=== PATIENT | male | born 1955 | race Caucasian/White ===

== ENCOUNTER → 2022-06-25 08:14 | Outpatient (BNVA) | payer BC, SELFPAY | PROVIDERS: PCP Family Medicine; Visit Provider Internal Medicine Endocrinology, Diabetes & Metabolism ==

== ENCOUNTER 2022-07-07 09:44 | Outpatient (REF) | payer BC, SELFPAY ==
[2022-07-07 11:52] LABS: Creatinine, 24Hr Urine 1.2 G/Day (1.0-2.0); Total Volume 24 Hour Urine 1800 mL
[2022-07-19 09:38] LABS: Cortisol Free, 24 Hr Urine 22.6 mcg/24 h (4.0-50.0); Creatinine, 24 Hr Urine 1.24 g/24 h (0.50-2.15); Total Volume, 24 Hr Urine 1800 mL
== END 2022-07-07 09:45 | disposition home or self-care (01) ==
LOC: HO.LNP 09:44
PROVIDERS: Visit Provider Internal Medicine Endocrinology, Diabetes & Metabolism
DX: D35.2 Benign neoplasm of pituitary gland (principal)
CPT/HCPCS: 82530; 82570

== ENCOUNTER 2022-08-13 07:47 | Outpatient (REF) | payer BC, SELFPAY ==
[2022-08-13 09:06] LABS: Anion Gap 13 (12-20); Blood Urea Nitrogen 16 mg/dL (9-16); Calcium 9.7 mg/dL (8.4-10.2); Carbon Dioxide 24 mmol/L (22-29); Chloride 106 mmol/L (96-108); Estimated Glomerular Filt Rate > 60; Glucose Random 98 mg/dL (60-115); Potassium 4.2 mmol/L (3.3-5.1); Sodium 139 mmol/L (135-145)
[2022-08-13 09:26] LABS: Free T4 (Free Thyroxine) 0.97 ng/dL (0.71-1.85); Thyroid Stimulating Hormone 1.03 uIU/mL (0.32-4.0)
[2022-08-15 02:53] LABS: Prolactin 6.1 ng/mL (2.0-18.0)
[2022-08-18 11:53] LABS: IGF-1 (Somatomedin C) 105 ng/mL (41-279); IGF-1 Z Score (Male) -0.2 SD (-2.0 - +2.0)
[2022-08-19 16:43] LABS: Testosterone, Free 57.1 pg/mL (35.0-155.0); Testosterone, Total 464 ng/dL (250-1100)
== END 2022-08-13 07:48 | disposition home or self-care (01) ==
LOC: HO.LAB 07:47
PROVIDERS: PCP Family Medicine; Visit Provider Internal Medicine Endocrinology, Diabetes & Metabolism
DX: D35.2 Benign neoplasm of pituitary gland (principal)
CPT/HCPCS: 36415; 80048; 82533; 84146; 84305; 84402; 84403; 84439; 84443

== ENCOUNTER 2022-08-17 08:17 | Outpatient (AMB) | payer BC, SELFPAY ==
--- NOTE | 2022-08-17 08:18 | A.OFFVIS_ITS ---
Intake Vital Signs 08/17/22 08:19 Height 5 ft 9.25 in Weight 172 lb 2.896 oz BMI 25.2 BP 120/78 Blood Pressure Location Lt brachial Position Sitting Pulse 56 Pulse Source Pulse Oximeter Pulse Oximetry (%) 97 Oxygen Delivery Method Room Air Intake Visit Reasons: f/u pituitary adenoma Intake Note: Pt presents to the office today for a follow-up pituitary adenoma. 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 Mass was 1st discovered in Feb 2022 . Patient denies any loss of vision. He states he had visual field test performed a week ago which are not available time of consultation. He denies any nipple discharge. He denies any change in the size of hands or feet or symptoms of acromegaly. He denies any symptoms of hypothyroidism or hyperthyroidism. He denies any symptoms of adrenal insufficiency or Kianna syndrome. He denies any polyuria or polydipsia. Visual mora so left eye and nasal defect which may not be due to pituitary adenoma. Some of the biochemical workup is pending but a.m. cortisol level is low normal [facility] Medical History (Updated 06/25/22 @ 08:17 by Milan Alvarez MD) Pituitary adenoma Surgical History (Updated 06/25/22 @ 07:12 by LYNDA Mac) Hx of colonoscopy Hx of knee surgery Family History (Updated 06/25/22 @ 08:01 by LYNDA Mac) Mother Diabetes mellitus, type II Father Carcinoma of prostate Social History (Updated 06/25/22 @ 08:00 by LYNDA Mac) Alcohol intake: current Alcohol intake frequency: a few times a week Patient Tobacco Use Status: Never used Tobacco Assessment & Plan Assessment & Plan (1) Pituitary adenoma: Code(s): D35.2 - Benign neoplasm of pituitary gland Plan: This 66-year-old male with a history of pituitary macroadenoma. Will rule out hypersecretion or hyposecretion of pituitary hormones. Plan is to IGF-1, 24 hour urine for free cortisol creatinine,, testosterone in a.m. fasting when is available. Will set up Cortrosyn stimulation test to test adrenal axis. Will try to obtain neuro surgical consultation with Dr. Tyson at [facility] ot Dr. Perkins at [facility] . Coding Level of Care Code Est Pt Level 3 (57911) Diagnoses Pituitary adenoma D35.2
[2022-08-17 08:19] VITALS: BP 120/78; PULSE 56; O2SAT 97; BMI 25.2
== END 2022-08-17 08:42 | disposition home or self-care (01) ==
PROVIDERS: PCP Family Medicine; Visit Provider Internal Medicine Endocrinology, Diabetes & Metabolism
DX: D35.2 Benign neoplasm of pituitary gland (principal)
CPT/HCPCS: 99213

== ENCOUNTER → 2022-08-17 08:17 | Outpatient (BNVA) | payer BC, SELFPAY | PROVIDERS: Visit Provider Internal Medicine Endocrinology, Diabetes & Metabolism ==

== ENCOUNTER 2022-08-24 07:16 | Outpatient (REF) | payer BC, SELFPAY ==
[2022-08-26 07:24] LABS: Cortisol 60 Minute 22.7 mcg/dL; Cortisol Baseline 10.8 mcg/dL
== END 2022-08-24 07:17 | disposition home or self-care (01) ==
LOC: HO.MDS 07:16
PROVIDERS: Visit Provider Internal Medicine Endocrinology, Diabetes & Metabolism
DX: D35.2 Benign neoplasm of pituitary gland (principal)
CPT/HCPCS: 36415; 82533; 96374; J0834

== ENCOUNTER 2022-12-08 08:07 | Outpatient (AMB) | payer BC, SELFPAY ==
--- NOTE | 2022-12-08 08:08 | A.OFFVIS_ITS ---
Intake Vital Signs 12/08/22 08:09 Height 5 ft 9.25 in Weight 171 lb 8.314 oz BMI 25.1 BP 114/86 Blood Pressure Location Lt brachial Position Sitting Pulse 64 Pulse Source Pulse Oximeter Intake Visit Reasons: f/u pituiary adenoma/Confirmed Intake Note: Patient present today for Pituitary adenoma follow up visit. Rn Clinical Appeals Required: No Accompanied by: Spouse Allergies No Known Allergies Allergy (Verified 12/08/22 08:20) Medication List - Last Reconciled 12/08/22 by Milan Alvarez MD allopurinol 300 mg PO DAILY apixaban (Eliquis) 5 mg PO BID atenolol 25 mg PO DAILY atorvastatin 40 mg PO DAILY carbidopa-levodopa 25-100 mg 2 tabs PO BID lisinopril 40 mg PO DAILY HPI HPI Comments History of Present Illness Details This 66-year-old male found to have pituitary macroadenoma which was 2.1 x 1.8 x 1.5 cm supracelular and sellar mass cystic and pushing on the optic chiasm. Mass was 1st discovered in Feb 2022 . Patient denies any loss of vision. He states he had visual field test performed a week ago which are not available time of consultation. He denies any nipple discharge. He denies any change in the size of hands or feet or symptoms of acromegaly. He denies any symptoms of hypothyroidism or hyperthyroidism. He denies any symptoms of adrenal insufficiency or [place] syndrome. He denies any polyuria or polydipsia. Visual mora so left eye and nasal defect which may not be due to pituitary adenoma. Some of the biochemical workup is pending but a.m. cortisol level is low normal. Cortrosyn stim test was normal. He also had normal visual mora by Oph thalmology. [facility] Medical History Pituitary adenoma Surgical History Hx of colonoscopy Hx of knee surgery Family History Mother Diabetes mellitus, type II Father Carcinoma of prostate Social History Alcohol intake: current Alcohol intake frequency: a few times a week Patient Tobacco Use Status: Never used Tobacco Physical Exam Vital Signs: Last Vital Signs Pulse 64 12/08/22 08:09 BP 114/86 12/08/22 08:09 BMI result Body Mass Index 25.1 Const Other: No signs of Kianna syndrome or acromegaly. Thyroid gland is normal size weighs about 15 g. Lungs are clear to auscultation. Heart is S1-S2. Abdominal exam is benign. There is no visual field loss by gross confrontation Assessment & Plan Assessment & Plan (1) Pituitary adenoma: Code(s): D35.2 - Benign neoplasm of pituitary gland Plan: This 66-year-old male with a history of pituitary macroadenoma. Appears to be non secretory. Plan is to to obtain neuro surgical consultation with Dr. Tyson at [facility] ot Dr. Perkins at [facility] . Will also repeat MRI the pituitary gland to be done a [facility] Orders: Orders MR head/brain wo/w con Today D35.2 - Benign neoplasm of pituitary gland Coding Level of Care Code Est Pt Level 3 (47945) Diagnoses Pituitary adenoma D35.2
[2022-12-08 08:09] VITALS: BP 114/86; PULSE 64; BMI 25.1
== END 2022-12-08 09:02 | disposition home or self-care (01) ==
PROVIDERS: PCP Family Medicine; Visit Provider Internal Medicine Endocrinology, Diabetes & Metabolism
DX: D35.2 Benign neoplasm of pituitary gland (principal)
CPT/HCPCS: 99213

== ENCOUNTER → 2022-12-08 08:07 | Outpatient (BNVA) | payer BC, SELFPAY | PROVIDERS: PCP Family Medicine; Visit Provider Internal Medicine Endocrinology, Diabetes & Metabolism ==

== ENCOUNTER 2023-05-11 15:22 | Outpatient (AMB) | payer BC, SELFPAY ==
--- NOTE | 2023-05-11 15:26 | MHC.OFFVIS ---
Intake Vital Signs 05/11/23 15:27 Height 5 ft 9.25 in Weight 181 lb 14.102 oz BMI 26.7 BP 144/86 H Blood Pressure Location Lt brachial Position Sitting Pulse 58 Pulse Source Pulse Oximeter Intake Visit Reasons: f/u pituiary adenoma Intake Note: Patient present today for Pituitary adenoma follow up visit. 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 Mass was 1st discovered in Feb 2022 . Patient denies any loss of vision. He states he had visual field test performed a week ago which are not available time of consultation. He denies any nipple discharge. He denies any change in the size of hands or feet or symptoms of acromegaly. He denies any symptoms of hypothyroidism or hyperthyroidism. He denies any symptoms of adrenal insufficiency or Kianna syndrome. He denies any polyuria or polydipsia. Visual mora so left eye and nasal defect which may not be due to pituitary adenoma. Some of the biochemical workup is pending but a.m. cortisol level is low normal. Cortrosyn stim test was normal. He also had normal visual mora by Ophthalmology. He is status post trans-sphenoidal resection of the pituitary mass 2 months ago at [facility]. Has f/u in 08/2023 [facility] Medical History (Updated 05/11/23 @ 15:32 by LYNDA Rivera) Pituitary adenoma (~03/2023) Surgical History History of pituitary surgery Hx of colonoscopy Hx of knee surgery Family History Mother Diabetes mellitus, type II Father Carcinoma of prostate Social History Alcohol intake: current Alcohol intake frequency: a few times a week Patient Tobacco Use Status: Never used Tobacco Physical Exam Vital Signs: Last Vital Signs Pulse 58 05/11/23 15:27 BP 144/86 H 05/11/23 15:27 BMI result Body Mass Index 26.7 Assessment & Plan Assessment & Plan (1) Pituitary adenoma: Onset Date: ~03/2023 Code(s): D35.2 - Benign neoplasm of pituitary gland Plan: 67-year-old white male with a history of pituitary macroadenoma status post transsphenoidal resection and [facility] on 03/13/2023 . Will try to obtain path report from [facility]. Will reassess pituitary axis checking basic metabolic panel, TSH, free T4, a.m. cortisol, testosterone Orders: Orders Basic Metabolic Panel Today D35.2 - Benign neoplasm of pituitary gland Free T4 (Free Thyroxine) Today D35.2 - Benign neoplasm of pituitary gland Thyroid Stimulating Hormone Today D35.2 - Benign neoplasm of pituitary gland Testosterone, Free/Total Today D35.2 - Benign neoplasm of pituitary gland Cortisol Random Today D35.2 - Benign neoplasm of pituitary gland Coding Level of Care Code Est Pt Level 3 (39113) Diagnoses Pituitary adenoma D35.2
[2023-05-11 15:27] VITALS: BP 144/86; PULSE 58; BMI 26.7
== END 2023-05-11 16:15 | disposition home or self-care (01) ==
PROVIDERS: PCP Family Medicine; Visit Provider Internal Medicine Endocrinology, Diabetes & Metabolism
DX: D35.2 Benign neoplasm of pituitary gland (principal)
CPT/HCPCS: 99213

== ENCOUNTER → 2023-05-11 15:22 | Outpatient (BNVA) | payer BC, SELFPAY | PROVIDERS: PCP Family Medicine; Visit Provider Internal Medicine Endocrinology, Diabetes & Metabolism ==

== ENCOUNTER 2023-12-05 10:19 | Outpatient (AMB) | payer BC, SELFPAY ==
--- NOTE | 2023-12-05 10:29 | A.OFFVIS_ITS ---
Vital Signs 3 12/05/23 10:30 Height 5 ft 9.25 in Weight 177 lb 0.499 oz BMI 26.0 BP 155/80 H Blood Pressure Location Lt brachial Position Sitting Pulse 42 L Pulse Source Pulse Oximeter Intake Visit Reasons: f/u pituitary adenoma-lvm Intake Note: Patient present today for pituitary adenoma follow up visit. 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 Kamila Arzate in March 2023 , luis hormonal staining on pathology now coming in today for follow up. HPI Patient was apparently having some hyperprolactinemia in February 2022. I do not have records this prolactin level that was elevated. Subsequently underwent MRI of the brain in April 2022 when he was found to have a pituitary macroadenoma measuring 2.1 cm in the maximum dimension. The mass was extending suprasellar, and pushing on the optic chiasm was also slightly pushing on the frontal lobe. Patient denies any loss of vision. Visual field testing performed at the [facility] in June 2022 showed a left atypical nieves defect with no bitemporal hemianopsia. On inital evaluation he denied He denies any nipple discharge. He denies any change in the size of hands or feet or symptoms of acromegaly. He denies any symptoms of hypothyroidism or hyperthyroidism. He denies any symptoms of adrenal insufficiency or Kianna syndrome. He denies any polyuria or polydipsia. Biochemical workup from August 2022 was unremarkable. He is status post trans-sphenoidal resection of the pituitary macroadenoma in March [address] Kamila Arzate at [facility]. 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 Stain negative before LH. Ki-67 index 0.1%. He subsequently had follow up in June 2023 and was asked to do repeat MRI 6 months which would be sometime in December 2023 with follow up with them after. Currentluy denies any lightheadness, dizziness , nausea or vomiting. No headaches. Overall feeling well. Bowel movements are regular. Weight is stable. Tremors are chronic mostky in right arm due to Parkinsons. On carbidopa 4 times a day . Follows with neurology. Is sexually active, no trouble with sexual function. No temperature intolerance. Had cardiac ablation for Afib this fall 2023, has followup with cards Most recent labs from May 2023 showed normal TSH of 1.3, free T4 1.09, total testosterone 567 ng/dL, free testosterone of 7.9 pg/mL, cortisol of 9.9 Physical exam General: sitting comfortably in no acute distress HEENT: normocephalic/atraumatic, gross visual mora intact, moist oral mucosa Neck: supple, symmetrical, no thyromegaly , no dorsocervical or supraclavicular fat pads Cardiac: normal heart sounds Pulm: normal breath sounds B/L, no added breath sounds Abd: not distended, no tenderness Extremities: no edema, no signs of myxedema PFSH Medical History Pituitary adenoma (~03/2023) Surgical History (Updated 12/05/23 @ 10:51 by Gisell Hwang MD) H/O cardiac radiofrequency ablation History of pituitary surgery Hx of colonoscopy Hx of knee surgery Family History Mother Diabetes mellitus, type II Father Carcinoma of prostate Social History Alcohol intake: current Alcohol intake frequency: a few times a week Patient Tobacco Use Status: Never used Tobacco Physical Exam Vital Signs: Last Vital Signs Pulse 42 L 12/05/23 10:30 BP 155/80 H 12/05/23 10:30 BMI result Body Mass Index 26.0 Results Reviewed Results Reviewed: Laboratory Tests 0508/13/22 08/24/22 07:00 07:58 08:00 Creatinine 0.85 Estimated GFR > 60 Calcium 9.7 TSH 1.03 Free T4 0.97 Prolactin 6.1 Total Testosterone 464 Fr Testosterone Dialys 57.1 Somatomedin-C 105 Somato-C Z-Score Male -0.2 Random Cortisol 9.3 Cortisol Baseline 10.8 Cortisol 60 Minute 22.7 Urine Total Volume 1800 Ur 24 Hour Volume 1800 Ur Creatinine mg/dL 68.40 Ur Creatinine 24 Hour 1.24 Ur Free Cortisol 24 Hr 22.6 Labs May 2023 MRI Dec 2022 MRI Dec 2022 Assessment & Plan Assessment & Plan (1) Pituitary adenoma: Onset Date: ~03/2023 Code(s): D35.2 - Benign neoplasm of pituitary gland Category: Medical Plan: 68-year-old male with a history of pituitary macroadenoma 2.1 cm, nonsecretory, abutting the optic chiasm, status post transsphenoidal resection at [facility] on 03/13/2023 . 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 Low Ki-67 index. He has done well postoperatively, labs done May 2023 showed normal thyroid hormone, cortisol and testosterone levels. Since it has been about 6 months since the last time he had blood work I will repeat blood work now.. He had a postoperative follow up head [facility] in June 2023, is due to get repeat MRI in December 2023 follow up with them after. When he had his visual mora done in June 2022, he had a left atypical nieves nasal defect thought to be not due to his pituitary adenoma with no bitemporal hemianopsia. I have asked him to make a follow up appointment with his eye doctor at [facility] to follow up on his visual mora. Plan: -ordered TSH, free T4, prolactin, testosterone levels, IGF-1, cortisol, acth -follow up with neurosurgery after repeat MRI in December 2023 -arrange follow up with [facility] -follow up in 6 months with me with lab work prior to appointment as well Plan I spent 30 minutes in reviewing the record, seeing the patient and documenting in the medical record. Orders: Orders 2 Free T4 (Free Thyroxine) Today D35.2 - Benign neoplasm of pituitary gland Cortisol Random Today D35.2 - Benign neoplasm of pituitary gland Basic Metabolic Panel Today D35.2 - Benign neoplasm of pituitary gland Thyroid Stimulating Hormone Today D35.2 - Benign neoplasm of pituitary gland Adrenocorticotropic Hormone Today D35.2 - Benign neoplasm of pituitary gland Lutenizing Hormone Today D35.2 - Benign neoplasm of pituitary gland IGF-1 (Somatomedin C) Today D35.2 - Benign neoplasm of pituitary gland Prolactin Today D35.2 - Benign neoplasm of pituitary gland Testosterone, Free/Total Today D35.2 - Benign neoplasm of pituitary gland Sex Hormone Binding Globulin Today D35.2 - Benign neoplasm of pituitary gland Patient Instructions: Do early childhood coordinator fasting AM bloodwork Follow up with Dr. Arzate with repeat MRI Follow up with eye doctor at [facility] for visual mora I will see you back in 6 months with repeat labs 1 week prior Coding Level of Care Code Est Pt Level 4 (36075) Diagnoses Pituitary adenoma D35.2 Time Spent (min) 30
[2023-12-05 10:30] VITALS: BP 155/80; PULSE 42; BMI 26.0
== END 2023-12-05 11:14 | disposition home or self-care (01) ==
PROVIDERS: PCP Family Medicine; Visit Provider Student in an Organized Health Care Education/Training Program
DX: D35.2 Benign neoplasm of pituitary gland (principal)
CPT/HCPCS: 99214

== ENCOUNTER → 2023-12-05 10:19 | Outpatient (BNVA) | payer BC, SELFPAY | PROVIDERS: PCP Family Medicine; Visit Provider Student in an Organized Health Care Education/Training Program ==

== ENCOUNTER 2023-12-07 09:44 | Outpatient (REF) | payer BC, SELFPAY ==
[2023-12-07 12:20] LABS: Anion Gap 13 (12-20); Blood Urea Nitrogen 13 mg/dL (9-16); Calcium 9.5 mg/dL (8.4-10.2); Carbon Dioxide 25 mmol/L (22-29); Chloride 106 mmol/L (96-108); Estimated Glomerular Filt Rate > 60; Potassium 3.3 mmol/L (3.3-5.1); Sodium 141 mmol/L (135-145)
[2023-12-07 12:32] LABS: Glucose Random 54 mg/dL (60-115)
[2023-12-07 12:34] LABS: Cortisol Random 7.5 ug/dL
[2023-12-07 13:01] LABS: Free T4 (Free Thyroxine) 0.94 ng/dL (0.71-1.85); Thyroid Stimulating Hormone 1.15 uIU/mL (0.32-4.0)
[2023-12-08 17:49] LABS: Lutenizing Hormone 2.7 mIU/mL (1.6-15.2); Prolactin 5.2 ng/mL (2.0-18.0); Sex Hormone Binding Globulin 48 nmol/L (22-77)
[2023-12-12 22:18] LABS: Testosterone, Free 35.2 pg/mL (35.0-155.0); Testosterone, Total 342 ng/dL (250-1100)
[2023-12-13 13:48] LABS: IGF-1 (Somatomedin C) 89 ng/mL (41-279); IGF-1 Z Score (Male) -0.4 SD (-2.0 - +2.0)
== END 2023-12-07 09:45 | disposition home or self-care (01) ==
LOC: HO.LAB 09:44
PROVIDERS: Internal Medicine Endocrinology, Diabetes & Metabolism; PCP Family Medicine; Visit Provider Student in an Organized Health Care Education/Training Program
DX: D35.2 Benign neoplasm of pituitary gland (principal)
CPT/HCPCS: 36415; 80048; 82533; 83002; 84146; 84270; 84305; 84402; 84403; 84439; 84443

== ENCOUNTER 2023-12-09 09:25 | Outpatient (REF) | payer BC, SELFPAY ==
[2023-12-09 11:54] LABS: Cortisol Random 4.9 ug/dL
[2023-12-09 12:11] LABS: Anion Gap 12 (12-20); Blood Urea Nitrogen 16 mg/dL (9-16); Calcium 9.7 mg/dL (8.4-10.2); Carbon Dioxide 27 mmol/L (22-29); Chloride 106 mmol/L (96-108); Estimated Glomerular Filt Rate > 60; Glucose Random 83 mg/dL (60-115); Potassium 4.1 mmol/L (3.3-5.1); Sodium 141 mmol/L (135-145)
[2023-12-15 16:18] LABS: Testosterone, Free 66.6 pg/mL (35.0-155.0); Testosterone, Total 438 ng/dL (250-1100)
[2023-12-15 21:48] LABS: Adrenocorticotropic Hormone 9 pg/mL (6-50)
== END 2023-12-09 09:26 | disposition home or self-care (01) ==
LOC: HO.LAB 09:25
PROVIDERS: Student in an Organized Health Care Education/Training Program; PCP Family Medicine; Visit Provider Student in an Organized Health Care Education/Training Program
DX: D35.2 Benign neoplasm of pituitary gland (principal)
CPT/HCPCS: 36415; 80048; 82024; 82533; 84402; 84403; 84439; 84443

== ENCOUNTER 2024-01-03 10:11 | Outpatient (AMB) | payer BC, SELFPAY ==
--- NOTE | 2024-01-03 10:14 | MHC.OFFVIS ---
Vital Signs 01/03/24 10:16 Height 5 ft 9.25 in Weight 177 lb 14.609 oz BMI 26.1 BP 128/72 Blood Pressure Location Lt brachial Position Sitting Pulse 58 Pulse Source Pulse Oximeter Intake Visit Reasons: Discuss cortisol treatment plan-confirmed Intake Note: Patient present today to discuss cortisol treatment plan. 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 Kamila Arzate in March 2023 , pleuri hormonal staining on pathology now coming in today for follow up. HPI Patient was apparently having some hyperprolactinemia in February 2022. I do not have records this prolactin level that was elevated. Subsequently underwent MRI of the brain in April 2022 when he was found to have a pituitary macroadenoma measuring 2.1 cm in the maximum dimension. The mass was extending suprasellar, and pushing on the optic chiasm was also slightly pushing on the frontal lobe. Patient denies any loss of vision. 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 On inital evaluation he denied He denies any nipple discharge. He denies any change in the size of hands or feet or symptoms of acromegaly. He denies any symptoms of hypothyroidism or hyperthyroidism. He denies any symptoms of adrenal insufficiency or Kianna syndrome. He denies any polyuria or polydipsia. Biochemical workup from August 2022 was unremarkable. He is status post trans-sphenoidal resection of the pituitary macroadenoma in March [address] Kamila Arzate at [facility]. 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 Stain negative before LH. Ki-67 index 0.1%. He subsequently had follow up in June 2023 and was asked to do repeat MRI 6 months which would be sometime in December 2023 with follow up with them after. Currentluy denies any lightheadness, dizziness , nausea or vomiting. No headaches. Overall feeling well. Bowel movements are regular. Weight is stable. Tremors are chronic mostky in right arm due to Parkinsons. On carbidopa 4 times a day . Follows with neurology. Is sexually active, no trouble with sexual function. No temperature intolerance. Had cardiac ablation for Afib this fall 2023, has followup with cards labs from May 2023 showed normal TSH of 1.3, free T4 1.09, total testosterone 567 ng/dL, free testosterone of 7.9 pg/mL, cortisol of 9.9 Interval history Has not had neurosurgery follow up yet still to schedule his MRI due 12/2023. Eye: hasnt seen visual field evaluation at [facility] yet, yet to make an appointment Labs done 12/07/2023, showed critically low glucose of 54, his random cortisol level at that time at 10:00 was 7.5. He did not have any symptoms, asked him to repeat his labs which on 12/09/2023 showed blood glucose of 83, random cortisol of 4.9 with a ACTH of 9. Otherwise labs unremarkable for the rest of the pituitary panel. He denies any dizziness, lightheadedness, nausea, vomiting today. Blood pressure is within normal range. Weight has been stable. Physical exam General: sitting comfortably in no acute distress HEENT: normocephalic/atraumatic, gross visual mora intact, moist oral mucosa Neck: supple, symmetrical, no thyromegaly , no dorsocervical or supraclavicular fat pads Cardiac: normal heart sounds Pulm: normal breath sounds B/L, no added breath sounds Abd: not distended, no tenderness Extremities: no edema, no signs of myxedema Laboratory Tests 07/07/22 08/13/22 08/24/22 07:00 07:58 08:00 Creatinine 0.85 Estimated GFR > 60 Calcium 9.7 TSH 1.03 Free T4 0.97 Prolactin 6.1 Total Testosterone 464 Fr Testosterone Dialys 57.1 Somatomedin-C 105 Somato-C Z-Score Male -0.2 Random Cortisol 9.3 Cortisol Baseline 10.8 Cortisol 60 Minute 22.7 Urine Total Volume 1800 Ur 24 Hour Volume 1800 Ur Creatinine mg/dL 68.40 Ur Creatinine 24 Hour 1.24 Ur Free Cortisol 24 Hr 22.6 Laboratory Tests 12/07/23 12/09/23 10:09 10:06 Sodium 141 141 Potassium 3.3 4.1 D Creatinine 0.77 0.80 Random Glucose 54 L* 83 TSH 1.15 1.40 Free T4 0.94 0.80 Luteinizing Hormone 2.7 Prolactin 5.2 Total Testosterone 342 438 Fr Testosterone Dialys 35.2 66.6 Sex Hormone Bind Glob 48 Somatomedin-C 89 Somato-C Z-Score Male -0.4 Random Cortisol 7.5 4.9 ACTH 9 PFSH Medical History Pituitary adenoma (~03/2023) Surgical History H/O cardiac radiofrequency ablation History of pituitary surgery Hx of colonoscopy Hx of knee surgery Family History Mother Diabetes mellitus, type II Father Carcinoma of prostate Social History Alcohol intake: current Alcohol intake frequency: a few times a week Patient Tobacco Use Status: Never used Tobacco Physical Exam Vital Signs: Last Vital Signs Pulse 58 01/03/24 10:16 BP 128/72 01/03/24 10:16 BMI result Body Mass Index 26.1 Assessment & Plan Assessment & Plan (1) Pituitary adenoma: Onset Date: ~03/2023 Code(s): D35.2 - Benign neoplasm of pituitary gland Category: Medical Plan: 68-year-old male with a history of pituitary macroadenoma 2.1 cm, nonsecretory, abutting the optic chiasm, status post transsphenoidal resection at [facility] on 03/13/2023 . 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 Low Ki-67 index. He has done well postoperatively, labs done May 2023 showed normal thyroid hormone, cortisol and testosterone levels. He had a postoperative follow [place] [facility] [place], is due to get repeat MRI in December 2023 follow up with them after. When he had his visual mora done in June 2022, he had a left atypical nieves nasal defect thought to be not due to his pituitary adenoma with no bitemporal hemianopsia. I have asked him to make a follow up appointment with his eye doctor at [facility] to follow up on his visual mora. Labs done 12/07/2023, showed critically low glucose of 54, his random cortisol level at that time at 10:00 was 7.5. He did not have any symptoms, asked him to repeat his labs which on 12/09/2023 showed blood glucose of 83, random cortisol of 4.9 with a ACTH of 9. Otherwise labs unremarkable for the rest of the pituitary panel. He denies any dizziness, lightheadedness, nausea, vomiting today. Blood pressure is within normal range. Weight has been stable. His cortisol and ACTH being on the lower side are concerning for possible secondary adrenal insufficiency, however given his clinical picture at this point I have not prescribed steroids. I did educate him about cortisol deficiency enroll of ACTH in adrenal insufficiency and if he starts having any symptoms of dizziness, lightheadedness, nausea, vomiting, exhaustion to go to the emergency room/call our office during of [place]. I also provided these instructions to him in writing. I will have him repeat labs at 08:00, these are already ordered. I will also arrange for a cosyntropin stimulation test. Plan: -ordered TSH, free T4, prolactin, , IGF-1, cortisol, acth, DHEA-S to be done at 08:00 -scheduling cosyntropin stimulation test -counseled regarding symptoms of adrenal insufficiency -follow up with neurosurgery after repeat MRI in December 2023 -arrange follow up with [facility] -follow up in 6 weeks with me with lab work prior to appointment as well Plan I spent 30 minutes in reviewing the record, seeing the patient and documenting in the medical record. Orders: Orders Adrenocorticotropic Hormone Today D35.2 - Benign neoplasm of pituitary gland Basic Metabolic Panel Today D35.2 - Benign neoplasm of pituitary gland DHEA Sulfate Today D35.2 - Benign neoplasm of pituitary gland Free T4 (Free Thyroxine) Today D35.2 - Benign neoplasm of pituitary gland Prolactin Today D35.2 - Benign neoplasm of pituitary gland Thyroid Stimulating Hormone Today D35.2 - Benign neoplasm of pituitary gland Alpha Subunit Today D35.2 - Benign neoplasm of pituitary gland Follicle Stimulating Hormone Today D35.2 - Benign neoplasm of pituitary gland IGF-1 (Somatomedin C) Today D35.2 - Benign neoplasm of pituitary gland Aldosterone Today D35.2 - Benign neoplasm of pituitary gland Renin Today D35.2 - Benign neoplasm of pituitary gland Cortisol Random Today D35.2 - Benign neoplasm of pituitary gland Lutenizing Hormone Today D35.2 - Benign neoplasm of pituitary gland Referrals Infusion Center Notification D35.2 - Benign neoplasm of pituitary gland Patient Instructions: Do blood work at 8 AM We will arrange for a cosyntropin stimulation test , our infusion center or nurse will call you to guide about scheduling this See Dr. Arzate after you have MRI See visual field doctor If you start having nausea, vomiting, belly pain, lightheadedness, dizziness , feeling exhausted please call our office during office hours or go to emergency room if you cant get a hold of us or if its after office hours or weekends s/p pituitary surgery , getting evaluated for adrenal insufficiency, if presents with adrenal crisis or passes out will need steroids Coding Level of Care Code Est Pt Level 4 (54501) Diagnoses Pituitary adenoma D35.2 Time Spent (min) 30
[2024-01-03 10:16] VITALS: BP 128/72; PULSE 58; BMI 26.1
== END 2024-01-03 10:48 | disposition home or self-care (01) ==
PROVIDERS: PCP Family Medicine; Visit Provider Student in an Organized Health Care Education/Training Program
DX: D35.2 Benign neoplasm of pituitary gland (principal)
CPT/HCPCS: 99214

== ENCOUNTER 2024-01-04 07:31 | Outpatient (REF) | payer BC, SELFPAY ==
[2024-01-04 08:07] LABS: Anion Gap 13 (12-20); Blood Urea Nitrogen 19 mg/dL (9-16); Calcium 9.4 mg/dL (8.4-10.2); Carbon Dioxide 25 mmol/L (22-29); Chloride 108 mmol/L (96-108); Estimated Glomerular Filt Rate > 60; Glucose Random 91 mg/dL (60-115); Potassium 4.3 mmol/L (3.3-5.1); Sodium 142 mmol/L (135-145)
[2024-01-04 08:23] LABS: Free T4 (Free Thyroxine) 0.86 ng/dL (0.71-1.85); Thyroid Stimulating Hormone 1.27 uIU/mL (0.32-4.0)
[2024-01-04 08:29] LABS: Cortisol Random 8.7 ug/dL
[2024-01-05 06:28] LABS: DHEA Sulfate 72 mcg/dL (20-217)
[2024-01-05 07:09] LABS: Follicle Stimulating Hormone 4.2 mIU/mL (1.4-12.8); Prolactin 4.1 ng/mL (2.0-18.0)
[2024-01-09 17:03] LABS: IGF-1 (Somatomedin C) 48 ng/mL (41-279); IGF-1 Z Score (Male) -1.6 SD (-2.0 - +2.0)
[2024-01-11 08:54] LABS: Adrenocorticotropic Hormone 11 pg/mL (6-50)
[2024-01-14 10:14] LABS: Renin 1.77 ng/mL/h (0.25-5.82)
== END 2024-01-04 07:32 | disposition home or self-care (01) ==
LOC: HO.LAB 07:31
PROVIDERS: PCP Family Medicine; Visit Provider Student in an Organized Health Care Education/Training Program
DX: D35.2 Benign neoplasm of pituitary gland (principal)
CPT/HCPCS: 36415; 80048; 82024; 82088; 82533; 82627; 83001; 83002; 83519; 84146; 84244; 84305; 84439; 84443

== ENCOUNTER 2024-01-20 07:30 | Outpatient (RCR) | payer BC, SELFPAY ==
[2024-01-20 07:37] VITALS: BP 127/78; PULSE 53; RESP 16; TEMP 36.4; O2SAT 99
[2024-01-20] MEDS: Cosyntropin 0.25 MG VIAL IVPUSH (07:45)
[2024-01-22 22:23] LABS: Cortisol 30 Minute 25.7 mcg/dL; Cortisol 60 Minute 28.5 mcg/dL; Cortisol Baseline 7.1 mcg/dL
== END 2024-01-20 11:05 | disposition home or self-care (01) ==
LOC: HO.INF 07:30
PROVIDERS: Visit Provider Student in an Organized Health Care Education/Training Program
DX: D35.2 Benign neoplasm of pituitary gland (principal)
CPT/HCPCS: 36415; 82533; 96374; J0834

== ENCOUNTER 2024-02-14 10:53 | Outpatient (AMB) | payer BC, SELFPAY ==
[2024-02-14 11:01] VITALS: BP 136/80; PULSE 56; BMI 26.5
--- NOTE | 2024-02-14 11:01 | A.OFFVIS_ITS ---
Vital Signs 3 02/14/24 11:01 Height 5 ft 9.25 in Weight 180 lb 12.465 oz BMI 26.5 BP 136/80 Blood Pressure Location Lt brachial Position Sitting Pulse 56 Pulse Source Pulse Oximeter Intake Visit Reasons: pituitary adenoma Intake Note: Patient present today for pituitary adenoma office visit. 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 Kamila Arzate in March 2023 , pleuri hormonal staining on pathology now coming in today for follow up. HPI Patient was apparently having some hyperprolactinemia in February 2022. I do not have records this prolactin level that was elevated. Subsequently underwent MRI of the brain in April 2022 when he was found to have a pituitary macroadenoma measuring 2.1 cm in the maximum dimension. The mass was extending suprasellar, and pushing on the optic chiasm was also slightly pushing on the frontal lobe. Patient denies any loss of vision. Visual field testing performed at the [facility] in June 2022 showed a left atypical nieves defect with no bitemporal hemianopsia. On inital evaluation he denied He denies any nipple discharge. He denies any change in the size of hands or feet or symptoms of acromegaly. He denies any symptoms of hypothyroidism or hyperthyroidism. He denies any symptoms of adrenal insufficiency or Kianna syndrome. He denies any polyuria or polydipsia. Biochemical workup from August 2022 was unremarkable. He is status post trans-sphenoidal resection of the pituitary macroadenoma in March [address] Kamila Arzate at [facility]. 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 Stain negative before LH. Ki-67 index 0.1%. He subsequently had follow up in June 2023 and was asked to do repeat MRI 6 months which would be sometime in December 2023 with follow up with them after. Currentluy denies any lightheadness, dizziness , nausea or vomiting. No headaches. Overall feeling well. Bowel movements are regular. Weight is stable. Tremors are chronic mostky in right arm due to Parkinsons. On carbidopa 4 times a day . Follows with neurology. Is sexually active, no trouble with sexual function. No temperature intolerance. Had cardiac ablation for Afib this fall 2023, has followup with cards labs from May 2023 showed normal TSH of 1.3, free T4 1.09, total testosterone 567 ng/dL, free testosterone of 7.9 pg/mL, cortisol of 9.9 Eye: hasnt seen visual field evaluation at [facility] yet, yet to make an appointment Labs done 12/07/2023, showed critically low glucose of 54, his random cortisol level at that time at 10:00 was 7.5. He did not have any symptoms, asked him to repeat his labs which on 12/09/2023 showed blood glucose of 83, random cortisol of 4.9 with a ACTH of 9. Otherwise labs unremarkable for the rest of the pituitary panel. Interval history Labs 12/09/2023 showed random cortisol of 4.9, with a ACTH of 9. Labs 01/04/2024 showed normal electrolytes, kidney function, renin greater than 1, normal pituitary panel with normal thyroid function, DHEA-S of 72, random cortisol of 8.7 and ACTH of 11 at 07:00. Cosyntropin stimulation testing 01/20/2024 showed baseline cortisol of 7.1, 30 minute cortisol of 25.7 and 60 minute cortisol 28.5. Has not had neurosurgery follow up yet still to schedule Eye appointment in Mar 2024 He denies any dizziness, lightheadedness, nausea, vomiting today. Blood pressure is within normal range. Weight has been stable. Physical exam General: sitting comfortably in no acute distress HEENT: normocephalic/atraumatic, gross visual mora intact, moist oral mucosa Neck: supple, symmetrical, no thyromegaly , no dorsocervical or supraclavicular fat pads Cardiac: normal heart sounds Pulm: normal breath sounds B/L, no added breath sounds Abd: not distended, no tenderness Extremities: no edema, no signs of myxedema Laboratory Tests 07/07/22 08/13/22 08/24/22 07:00 07:58 08:00 Creatinine 0.85 Estimated GFR > 60 Calcium 9.7 TSH 1.03 Free T4 0.97 Prolactin 6.1 Total Testosterone 464 Fr Testosterone Dialys 57.1 Somatomedin-C 105 Somato-C Z-Score Male -0.2 Random Cortisol 9.3 Cortisol Baseline 10.8 Cortisol 60 Minute 22.7 Urine Total Volume 1800 Ur 24 Hour Volume 1800 Ur Creatinine mg/dL 68.40 Ur Creatinine 24 Hour 1.24 Ur Free Cortisol 24 Hr 22.6 Laboratory Tests 12/07/23 12/09/23 10:09 10:06 Sodium 141 141 Potassium 3.3 4.1 D Creatinine 0.77 0.80 Random Glucose 54 L* 83 TSH 1.15 1.40 Free T4 0.94 0.80 Luteinizing Hormone 2.7 Prolactin 5.2 Total Testosterone 342 438 Fr Testosterone Dialys 35.2 66.6 Sex Hormone Bind Glob 48 Somatomedin-C 89 Somato-C Z-Score Male -0.4 Random Cortisol 7.5 4.9 ACTH 9 Laboratory Tests 12/09/23 01/04/24 01/20/24 10:06 07:43 07:44 Sodium 142 Potassium 4.3 Creatinine 0.83 Estimated GFR > 60 Random Glucose 91 Alpha Subunit Marker <0.1 Renin 1.77 Aldosterone 2 TSH 1.27 Free T4 0.86 FSH 4.2 Luteinizing Hormone 2.0 Prolactin 4.1 DHEA Sulfate 72 Somatomedin-C 48 Somato-C Z-Score Male -1.6 Random Cortisol 4.9 8.7 Cortisol Baseline 7.1 Cortisol 30 Minute 25.7 Cortisol 60 Minute 28.5 ACTH 9 11 [facility] Medical History Pituitary adenoma (~03/2023) Surgical History H/O cardiac radiofrequency ablation History of pituitary surgery Hx of colonoscopy Hx of knee surgery Family History Mother Diabetes mellitus, type II Father Carcinoma of prostate Social History Alcohol intake: current Alcohol intake frequency: a few times a week Patient Tobacco Use Status: Never used Tobacco Physical Exam Vital Signs: Last Vital Signs Pulse 56 02/14/24 11:01 BP 136/80 02/14/24 11:01 BMI result Body Mass Index 26.5 Assessment & Plan Assessment & Plan (1) Pituitary adenoma: Onset Date: ~03/2023 Code(s): D35.2 - Benign neoplasm of pituitary gland Category: Medical Plan: 68-year-old male with a history of pituitary macroadenoma 2.1 cm, nonsecretory, abutting the optic chiasm, status post transsphenoidal resection at [facility] on 03/13/2023 . 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 Low Ki-67 index. He has done well postoperatively, labs done May 2023 showed normal thyroid hormone, cortisol and testosterone levels. He had a postoperative follow up [place] [facility] [place], is due to get repeat MRI in December 2023 follow up with them after. He still has to make this appointment. When he had his visual mora done in June 2022, he had a left atypical nieves nasal defect thought to be not due to his pituitary adenoma with no bitemporal hemianopsia. He has follow up appointment with his eye doctor at [facility] to follow up on his visual mora in Mar 2024. Labs done 12/07/2023, showed critically low glucose of 54, his random cortisol level at that time at 10:00 was 7.5. He did not have any symptoms, asked him to repeat his labs which on 12/09/2023 showed blood glucose of 83, random cortisol of 4.9 with a ACTH of 9. Labs 12/09/2023 showed random cortisol of 4.9, with a ACTH of 9. Labs 01/04/2024 showed normal electrolytes, kidney function, renin greater than 1, normal pituitary panel with normal thyroid function, DHEA-S of 72, random cortisol of 8.7 and ACTH of 11 at 07:00. Cosyntropin stimulation testing 01/20/2024 showed baseline cortisol of 7.1, 30 minute cortisol of 25.7 and 60 minute cortisol 28.5. He denies any dizziness, lightheadedness, nausea, vomiting today. Blood pressure is within normal range. Weight has been stable. I did again bereavement counselor him today about cortisol deficiency and roll of ACTH in adrenal insufficiency and if he starts having any symptoms of dizziness, lightheadedness, nausea, vomiting, exhaustion to go to the emergency room/call our office . Otherwise we would plan to repeat labs in 6 months. At this point given normal cosyntropin testing, no concerns for adrenal insufficiency. Plan: -ordered pituitary panel to be done in 6 months -follow up in 6 months -counseled regarding symptoms of adrenal insufficiency -follow up with neurosurgery after repeat MRI - follow up with [facility] Plan see above Orders: Orders 2 Prolactin 6 Months D35.2 - Benign neoplasm of pituitary gland Basic Metabolic Panel 6 Months D35.2 - Benign neoplasm of pituitary gland IGF-1 (Somatomedin C) 6 Months D35.2 - Benign neoplasm of pituitary gland Lutenizing Hormone 6 Months D35.2 - Benign neoplasm of pituitary gland Free T4 (Free Thyroxine) 6 Months D35.2 - Benign neoplasm of pituitary gland Testosterone, Free/Total 6 Months D35.2 - Benign neoplasm of pituitary gland Adrenocorticotropic Hormone 6 Months D35.2 - Benign neoplasm of pituitary gland Cortisol Random 6 Months D35.2 - Benign neoplasm of pituitary gland Follicle Stimulating Hormone 6 Months D35.2 - Benign neoplasm of pituitary gland Thyroid Stimulating Hormone 6 Months D35.2 - Benign neoplasm of pituitary gland DHEA Sulfate 6 Months D35.2 - Benign neoplasm of pituitary gland Patient Instructions: Please do blood work early 8 AM fasting a week prior to your next appointment with me in 6 months Coding Level of Care Code Est Pt Level 3 (87910) Diagnoses Pituitary adenoma D35.2
--- OUTSIDE RECORDS SUMMARY | 2024-02-14 12:12 | XMS_ITS | Data Portability ---
Author Organization [facility], Main Office Address [address] [place] [address] Care Team Providers Care Manager Product Design Name Role Phone MICHEAL RICHARDS Primary Care Provider REE HENSLEY Orthopedic Surgeon [phone] MAX VALDES Woodworker SUMANTH ESCOBAR Neurologist [facility] Jordan Man [phone] ISAI BONILLA Marketing Intelligence Analyst [phone] Assessment No assessment recorded. Plan of Treatment Reminders Order Date Submit Date Provider Last Modified By Organization Details Last Modified Time Details Appointments PE EST 2024 01:00P M Micheal Richards MD Not available Not available Not available Lab uric acid, serum or plasma 2023 024 [facility], [address], [place], [address], 08/18/2023 08:09:08 CBC w/ auto diff 2023 024 [facility], [address], [address], [place], [address], 08/18/2023 08:09:06 CMP, serum or plasma 2023 024 [facility]ILCAR [facility], [address], [address], [place], [address], 08/18/2023 08:09:04 PSA, serum or plasma - Screen ing 2023 024 [facility]ILCAR [facility], [address], [address], [place], [address], 08/18/2023 08:09:08 magnes ium, serum or plasma 2023 024 [facility]IL[facility], [address], [address], [place], [address], 08/18/2023 08:09:09 lipid panel, serum 2023 024 [email or web address], [address], [address], [place], [address], 07/18/2023 09:00:36 Referral physic al therap ist referr al - Neurol percy [facility] 2022 023 [email or web address] Not available 05/30/2023 09:04:38 physic al therap ist referr al - Edyta Tabares 2023 024 [email or web address] [facility], [address] [place] [address], [address], [place], [address], 01/04/2024 09:37:07 physic al therap ist referr al - At risk for fallin g 2023 024 link Not available 07/08/2023 10:52:24 sleep medici ne referr al - stop bang 4 with afib. 2023 024 [facility], [address] [place], [address], 08/18/2023 11:00:57 Procedures None record ed. Surgeries None record ed. Imaging US, abdome n + pelvis 2023 024 link [facility], [address] [facility] [place], [address], 10/14/2023 11:42:21 Medication Orders None record ed. Patient TargetsNo targets recorded. Patient Instructions Encounter Date Encounter Id Patient Instructions Last Modified By Organization Details Last Modified Time 03/18/2023 [id number] During [facility] f/u call, all current and discharge medications (OTC, herbal therapies, supplements) reviewed and reconciled with patient, including potential side effects, drug interactions, instructions, and the consequences of not taking medication. Reviewed potential barriers to medication adherence, such as side effects from medication or cost of medication. sanaz Not available 03/18/2023 10:11:13 07/08/2023 [id number] Prostate Cancer Screening frank Not available 07/08/2023 10:00:10 well visit, over 65: care instructions frank Not available 07/08/2023 10:00:10 preventing falls : care instructions frank Not available 07/08/2023 10:00:11 well visit, over 65: care instructions frank Not available 07/08/2023 10:00:10 medical record request* [email or web address] Not available 07/18/2023 08:59:16 01/13/2024 [id number] parkinson's dise ase: care instructions frank Not available 01/13/2024 09:49:13 electrical cardioversion: before your procedure frank Not available 01/13/2024 09:49:13 Electrophysiolog y (EP) Study: Before Your Procedure frank Not available 01/13/2024 09:49:13 high blood press ure: care instructions frank Not available 01/13/2024 09:49:13 learning about h igh blood pressure frank Not available 01/13/2024 09:49:13 Reason for Referral Physical Therapist Referral for Parkinson's disease [facility] [phone] Referring Physician: Family Brenda Medicine, Encounter Date: 11/30/2022 Sleep Medicine Referral for Snoring stop bang 4 with afib. Referring Physician: Family Peng Gutierrez, Encounter Date: 07/08/2023 Physical Therapist Referral for Adult health examination At risk for falling Referring Physician: Family Peng Gutierrez, Encounter Date: 07/08/2023 Physical Therapist Referral for Parkinson's disease Karolina Rayshawn Referring Physician: Family Peng Gutierrez, Encounter Date: 07/08/2023 Results Created Date Observation Date Name Description Value Unit Range Abnormal Flag Note LastModifiedBy Organization Detail LastModifiedTime 09/01/19 23 08/31/2022 CA19- 9 Ca19-9 7 U/mL (0-35) Ivory Elect ivory milum inesc ence Immun oassa y (ECLI A). Value s obtai jerri with diffe rent assay metho ds or kits canno t be used inter dee kenny . Resul ts canno t be inter prete d as absol [place] evide nce of the prese nce or absen ce of [facility] . Not Available [facility] [address] [place], [address], 08/31/2022 17:51:44 09/01/19 23 08/31/2022 CEA MONOC LONAL cea monoclonal 1.7 NG/mL (0-3.8 ) In smoke rs the CEA refer ence range upper limit may be as high as 5.5 ng/mL Testi ng perfo rmed using the Ivory Elect ivory milum inesc ence CEA assay . Value s obtai jerri with other assay metho ds or kits canno t be used inter dee eably . Varia ble resul ts may occur in patie nts who have diagn ostic tests /ther apy using mouse monoc lonal antib odies . [place] Lab at EXT [id number] . Not Available [facility] [address], [place], [address], 08/31/2022 17:51:46 09/01/19 23 09/01/2022 SERUM ELECT ROPHO RESIS total protein 6.4 gm/dL (6.2-8 .2) Not Available [facility] [address], [place], [address], 09/09/2022 10:56:27 09/01/19 23 09/09/2022 SERUM ELECT ROPHO RESIS albumin 3.7 gm/dL (3.1-4 .8) Not Available [facility] [address] [place], [address], 09/09/2022 10:56:27 09/01/19 23 09/09/2022 SERUM ELECT ROPHO RESIS alpha 1 0.2 gm/dL (0.2-0 .4) Not Available [facility] [address] [place], [address], 09/09/2022 10:56:27 09/01/19 23 09/09/2022 SERUM ELECT ROPHO RESIS alpha 2 0.8 gm/dL (0.6-0 .9) Not Available [facility] [address] [place], [address], 09/09/2022 10:56:27 09/01/1909/09/2022 SERUM ELECT ROPHO RESIS beta 1.0 gm/dL (0.9-1 .3) Not Available [facility] [address] [place], [address], 09/09/2022 10:56:27 09/01/19 23 09/09/2022 SERUM ELECT ROPHO RESIS gamma 0.7 gm/dL (0.6-1 .8) Not Available [facility] [address] [place], [address], 09/09/2022 10:56:27 09/01/19 23 09/09/2022 SERUM ELECT ROPHO RESIS beta, restricted band Not Applic able Not Available [facility] [address] [place], [address], 09/09/2022 10:56:27 09/01/19 23 09/09/2022 SERUM ELECT ROPHO RESIS beta, second restricted band Not Applic able gm/dL Not Available [facility] [address] [place], [address], 09/09/2022 10:56:27 09/01/19 23 09/09/2022 SERUM ELECT ROPHO RESIS gamma, restricted band Not Applic able gm/dL Not Available [facility] [address] [place], [address], 09/09/2022 10:56:27 09/01/19 23 09/09/2022 SERUM ELECT ROPHO RESIS gamma, second restricted band Not Applic able gm/dL Not Available [facility] [address] [place], [address], 09/09/2022 10:56:27 09/01/19 23 09/09/2022 SERUM ELECT ROPHO RESIS spe interpretati on Lin l high resol ution serum prote in elect ropho resis guerline rn. No appar ent monoc lonal prote in ident ified . Inter prete d by Hieu irene MD Not Available [facility] [address], [place], [place], [address], 09/09/2022 10:56:27 09/16/19 23 09/15/2022 fecal occul t blood , immun oassa y, stool RESULT negati ve Not Available In-Office Order Internal Use Only DO Not Attach Compendium DO Not Attach Compendium, Do Not Delete/merge, [id number] 08/31/2022 09:51:56 08/17/19 24 08/18/2023 CMP14 (REFL EX HGB A1C) glucose 90 mg/dL 70-99 Not Available [facility] ([facility]) [address] [facility] [address], [place], [address], 08/18/2023 08:09:04 08/17/19 24 08/18/2023 CMP14 (REFL EX HGB A1C) BUN 12 mg/dL 8-27 Not Available [facility] ([facility]) [address] [facility] [address] [facility] [address], [place], [address], 08/18/2023 08:09:04 08/17/19 24 08/18/2023 CMP14 (REFL EX HGB A1C) creatinine 0.76 mg/dL 0.76-1 .27 Not Available [facility] ([facility]) [address] [facility] [address], [place], [address], 08/18/2023 08:09:04 08/17/19 24 08/18/2023 CMP14 (REFL EX HGB A1C) eGFR 98 mL/mi n/1.7 3 >59 Not Available [facility] ([facility]) [address] [facility] [address], [place], [address], 08/18/2023 08:09:04 08/17/19 24 08/18/2023 CMP14 (REFL EX HGB A1C) BUN/creatini ne ratio 16 10-24 Not Available [facility] ([facility]) [address] [facility] [address], [place], [address], 08/18/2023 08:09:04 08/17/19 24 08/18/2023 CMP14 (REFL EX HGB A1C) sodium 138 mmol/ L 134-14 4 Not Available [facility] ([facility]) [address] [facility] [address], [place], [address], 08/18/2023 08:09:04 08/17/19 24 08/18/2023 CMP14 (REFL EX HGB A1C) potassium 4.2 mmol/ L 3.5-5. 2 Not Available [facility] ([facility]) [address] [facility] [address], [place], [address], 08/18/2023 08:09:04 08/17/1908/18/2023 CMP14 (REFL EX HGB A1C) chloride 103 mmol/ L 96-106 Not Available [facility] ([facility]) [address] [place], [address], 08/18/2023 08:09:04 08/17/19 24 08/18/2023 CMP14 (REFL EX HGB A1C) carbon dioxide, total 21 mmol/ L 20-29 Not Available [facility] ([facility]) [address] [place], [address], 08/18/2023 08:09:04 08/17/19 24 08/18/2023 CMP14 (REFL EX HGB A1C) calcium 9.5 mg/dL 8.6-10 .2 Not Available [facility] ([facility]) [address] [place], [address], 08/18/2023 08:09:04 08/17/19 24 08/18/2023 CMP14 (REFL EX HGB A1C) protein, total 6.6 g/dL 6.0-8. 5 Not Available [facility] ([facility]) [address] [place], [address], 08/18/2023 08:09:04 08/17/19 24 08/18/2023 CMP14 (REFL EX HGB A1C) albumin 4.6 g/dL 3.9-4. 9 Not Available [facility] ([facility]) [address] [place], [address], 08/18/2023 08:09:04 08/17/19 24 08/18/2023 CMP14 (REFL EX HGB A1C) globulin, total 2.0 g/dL 1.5-4. 5 Not Available [facility] ([facility]) [address] [place], [address], 08/18/2023 08:09:04 08/17/1908/18/2023 CMP14 (REFL EX HGB A1C) bilirubin, total 0.8 mg/dL 0.0-1. 2 Not Available [facility] ([facility]) [address] [place], [address], 08/18/2023 08:09:04 08/17/1908/18/2023 CMP14 (REFL EX HGB A1C) alkaline phosphatase 70 IU/L 44-121 Not Available [facility]) [address] [place], [address], 08/18/2023 08:09:04 08/17/19 24 08/18/2023 CMP14 (REFL EX HGB A1C) AST (SGOT) 17 IU/L 0-40 Not Available [facility] ([facility]) [address] [place], [address], 08/18/2023 08:09:04 08/17/19 24 08/18/2023 CMP14 (REFL EX HGB A1C) ALT (SGPT) 17 IU/L 0-44 Not Available [facility] ([facility]) [address] [facility] [address], [place], [address], 08/18/2023 08:09:04 08/17/19 24 08/17/2023 CBC WITH DIFFE RENTI AL/PL ATELE T WBC 5.7 x10e3 /uL 3.4-10 .8 Not Available [facility] ([facility]) [address] [facility] [address], [place], [address], 08/18/2023 08:09:06 08/17/19 24 08/17/2023 CBC WITH DIFFE RENTI AL/PL ATELE T RBC 4.93 x10e6 /uL 4.14-5 .80 Not Available [facility] ([facility]) [address] [facility] [address], [place], [address], 08/18/2023 08:09:06 08/17/19 24 08/17/2023 CBC WITH DIFFE RENTI AL/PL ATELE T hemoglobin 15.4 g/dL 13.0-1 7.7 Not Available [facility] ([facility]) [address] [facility] [address], [place], [address], 08/18/2023 08:09:06 08/17/19 24 08/17/2023 CBC WITH DIFFE RENTI AL/PL ATELE T hematocrit 46.5 % 37.5-5 1.0 Not Available [facility] ([facility]) [address] [place], [address], 08/18/2023 08:09:06 08/17/19 24 08/17/2023 CBC WITH DIFFE RENTI AL/PL ATELE T MCV 94 fL 79-97 Not Available [facility] ([facility]) [address] [facility], [place], [address], 08/18/2023 08:09:06 08/17/19 24 08/17/2023 CBC WITH DIFFE RENTI AL/PL ATELE T MCH 31.2 pg 26.6-3 3.0 Not Available [facility] ([facility]) [address] [facility] [address], [place], [address], 08/18/2023 08:09:06 08/17/19 24 08/17/2023 CBC WITH DIFFE RENTI AL/PL ATELE T MCHC 33.1 g/dL 31.5-3 5.7 Not Available [facility] ([facility]) [address] [facility] [address], [place], [address], 08/18/2023 08:09:06 08/17/19 24 08/17/2023 CBC WITH DIFFE RENTI AL/PL ATELE T RDW 12.9 % 11.6-1 5.4 Not Available [facility] ([facility]) [address] [facility] [address], [place], [address], 08/18/2023 08:09:06 08/17/19 24 08/17/2023 CBC WITH DIFFE RENTI AL/PL ATELE T platelets 237 x10e3 /uL 150-45 0 Not Available [facility] ([facility]) [address] [facility] [address], [place], [address], 08/18/2023 08:09:06 08/17/19 24 08/17/2023 CBC WITH DIFFE RENTI AL/PL ATELE T neutrophils 56 % not estab. Not Available [facility] ([facility]) [address] [facility] [address], [place], [address], 08/18/2023 08:09:06 08/17/19 24 08/17/2023 CBC WITH DIFFE RENTI AL/PL ATELE T lymphs 32 % not estab. Not Available [facility] ([facility]) [address] [facility], [place], [address], 08/18/2023 08:09:06 08/17/19 24 08/17/2023 CBC WITH DIFFE RENTI AL/PL ATELE T monocytes 9 % not estab. Not Available [facility] ([facility]) [address] [facility], [place], [address], 08/18/2023 08:09:06 08/17/19 24 08/17/2023 CBC WITH DIFFE RENTI AL/PL ATELE T eos 2 % not estab. Not Available [facility] ([facility]) [address] [facility], [place], [address], 08/18/2023 08:09:06 08/17/19 24 08/17/2023 CBC WITH DIFFE RENTI AL/PL ATELE T basos 0 % not estab. Not Available [facility] ([facility]) [address] [facility] [address], [place], [address], 08/18/2023 08:09:06 08/17/19 24 08/17/2023 CBC WITH DIFFE RENTI AL/PL ATELE T immature cells BATCH BLENDER Not Available [facility] ([facility]) [address] [place], [address], 08/18/2023 08:09:06 08/17/19 24 08/17/2023 CBC WITH DIFFE RENTI AL/PL ATELE T neutrophils (absolute) 3.2 x10e3 /uL 1.4-7. 0 Not Available [facility] ([facility]) [address] [place], [address], 08/18/2023 08:09:06 08/17/19 24 08/17/2023 CBC WITH DIFFE RENTI AL/PL ATELE T lymphs (absolute) 1.8 x10e3 /uL 0.7-3. 1 Not Available [facility] ([facility]) [address] [place], [address], 08/18/2023 08:09:06 08/17/19 24 08/17/2023 CBC WITH DIFFE RENTI AL/PL ATELE T monocytes(ab solute) 0.5 x10e3 /uL 0.1-0. 9 Not Available [facility] ([facility]) [address] [facility] [address], [place], [address], 08/18/2023 08:09:06 08/17/19 24 08/17/2023 CBC WITH DIFFE RENTI AL/PL ATELE T eos (absolute) 0.1 x10e3 /uL 0.0-0. 4 Not Available [facility] ([facility]) [address] [facility] [address], [place], [address], 08/18/2023 08:09:06 08/17/19 24 08/17/2023 CBC WITH DIFFE RENTI AL/PL ATELE T baso (absolute) 0.0 x10e3 /uL 0.0-0. 2 Not Available [facility] ([facility]) [address] [facility], [place], [address], 08/18/2023 08:09:06 08/17/19 24 08/17/2023 CBC WITH DIFFE RENTI AL/PL ATELE T immature granulocytes 1 % not estab. Not Available [facility] ([facility]) [address] [facility], [place], [address], 08/18/2023 08:09:06 08/17/19 24 08/17/2023 CBC WITH DIFFE RENTI AL/PL ATELE T immature grans (abs) 0.0 x10e3 /uL 0.0-0. 1 Not Available [facility] ([facility]) [address] [facility], [place], [address], 08/18/2023 08:09:06 08/17/19 24 08/17/2023 CBC WITH DIFFE RENTI AL/PL ATELE T NRBC BATCH BLENDER Not Available [facility] ([facility]) [address] [facility], [place], [address], 08/18/2023 08:09:06 08/17/19 24 08/17/2023 CBC WITH DIFFE RENTI AL/PL ATELE T hematology comments: BATCH BLENDER Not Available [facility] ([facility]) [address] [facility], [place], [address], 08/18/2023 08:09:06 08/17/19 24 08/18/2023 LIPID PANEL cholesterol, total 158 mg/dL 100-19 9 Not Available [facility] ([facility]) [address] [facility], [place], [address], 08/18/2023 08:09:07 08/17/19 24 08/18/2023 LIPID PANEL triglyceride s 63 mg/dL 0-149 Not Available [facility] ([facility]) [address] [place], [address], 08/18/2023 08:09:07 08/17/19 24 08/18/2023 LIPID PANEL HDL cholesterol 68 mg/dL >39 Not Available [facility]) [address] [facility], [place], [address], 08/18/2023 08:09:07 08/17/19 24 08/18/2023 LIPID PANEL VLDL cholesterol reynold 13 mg/dL 5-40 Not Available [facility]) [address] [facility], [place], [address], 08/18/2023 08:09:07 08/17/19 24 08/18/2023 LIPID PANEL LDL chol calc ([facility]) 77 mg/dL 0-99 Not Available [facility]) [address] [place], [address], 08/18/2023 08:09:07 08/17/19 24 08/18/2023 LIPID PANEL LDL calc comment: BATCH BLENDER Not Available [facility] ([facility]) [address] [place], [address], 08/18/2023 08:09:07 08/17/19 24 08/17/2023 PSA TOTAL (REFL EX TO FREE) reflex criteria Commen t The perce nt free PSA is perfo rmed on a refle x basis only when the total PSA is betwe en 4.0 and 10.0 ng/mL . Not Available [facility] ([facility]) [address] [facility], [place], [address], 08/18/2023 08:09:07 08/17/19 24 08/18/2023 PSA TOTAL (REFL EX TO FREE) prostate specific Ag 1.1 NG/mL 0.0-4. 0 Ivory ECLIA metho dolog y. Accor ding to the Ameri can [employer]o g[employer] iatio n, Serum PSA shoul d decre ase and remai n at undet ectab le level s after radic al prost atect cher. The AUA defin es bioch emica l recur rence as an initi al PSA value 0.2 ng/mL or great er follo wed by a subse quent confi rmato ry PSA value 0.2 ng/mL or great er. Value s obtai jerri with diffe rent assay metho ds or kits canno t be used inter dee eably . Resul ts canno t be inter prete d as absol [place] evide nce of the prese nce or absen ce of malorie morataya se. Not Available [facility] ([facility]) [address] [facility], [place], [address], 08/18/2023 08:09:07 08/17/19 24 08/18/2023 URIC ACID uric acid 4.1 mg/dL 3.8-8. 4 Thera mauro acharya t for gout patie nts: <6.0 Not Available [facility] ([facility]) [address] [facility], [place], [address], 08/18/2023 08:09:08 08/17/19 24 08/18/2023 MAGNE SIUM magnesium 1.8 mg/dL 1.6-2. 3 Not Available [facility] ([facility]) [address] [facility], [place], [address], 08/18/2023 08:09:09 01/04/20 24 01/04/2024 BMP, serum or plasm a sodium 142 Not Available [facility] [address], [address], 01/05/2024 11:12:52 01/04/20 24 01/04/2024 BMP, serum or plasm a potassium 4.3 Not Available [facility] [address], [address], 01/05/2024 11:12:52 01/04/2001/04/2024 BMP, serum or plasm a BUN 19 Not Available [facility] [address], [address], 01/05/2024 11:12:52 01/04/20 24 01/04/2024 BMP, serum or plasm a creatinine 0.83 Not Available [facility] [address], [address], 01/05/2024 11:12:52 01/04/20 24 01/04/2024 BMP, serum or plasm a glucose 91 Not Available [facility] [address], [address], 01/05/2024 11:12:52 Result Notes None recorded. Problems Name Problem SNOMED Code Status Onset Date Resolution Date Notes Provider Name and Address Organization Details Recorded Time Gout 79336267 Active 2021 ANGELA Wilcox [facility] 3 10:21:41 Essential hypertens ion 03730238 Active ANGELA Wilcox [facility] 3 10:21:41 Hyperlipi demia 07797014 Active ANGELA Wilcox [facility] 3 10:21:41 Erectile dysfuncti on 346554659 Active ANGELA Wilcox [facility] 3 10:21:41 Gastroeso phageal reflux disease without esophagit is 607716042 Active ANGELA Wilcox, [facility] 3 10:21:41 Diverticu losis of colon 008778095 Completed 08/31/2022 Micheal Richards MD [address] [address], [facility] [place], [address], [facility] 3 07:31:42 Osteoarth ritis 057179573 Active 2021 Knee right side. 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 ANGELA Wilcox, [facility] 3 10:21:41 History of diverticu litis 504393402729 100 Active 2022 ANGELA Wilcox, [facility] 3 10:21:41 Unintenti onal weight loss 083963077 Completed 202201/13/2024 Micheal Richards MD [address] [address], [facility] [place] [facility] [place], [address], [facility] 4 09:48:28 Neoplasm of pituitary gland 705931786 Active 2023 ANGELA Woods, [facility] 4 09:28:16 History of respirato ry disease 137434701 Active 2023 ANGELA Woods, [facility] 4 09:28:16 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 Procedures Surgical History Date Name Laterality Status Provider Name and Address Organization Details Recorded Time 07/07/19 24 Colonoscopy completed Mel gaytan MA [facility] 07/08/2023 09:43:54 03/15/19 24 hypophysectomy completed Shakira Lo RN [facility] 03/18/2023 09:57:44 11/16/19 23 total knee replacement completed Joana Mejia [facility] 11/17/2022 13:17:56 09/16/19 23 FOBT completed Lissette Alonso MA [facility] 09/15/2022 16:55:12 02/07/18 72 procedure on nasal septum completed Raul Avalos MA [facility] 05/26/2022 09:29:00 repair of meniscus completed Mel gaytan MA [facility] 05/20/2021 09:13:25 Imaging Results None recorded. Procedure Notes None recorded. Medical Equipment None Reported. Allergies Allergen ID Allergen Name Allergen Category Reaction Reaction Severity Criticality Documentation Date Start Date Code Code System Note Provider Name and Address Organization Details Recorded Time 57681 hydrochlo rothiazid e medicatio n Not available Not available Not available 01/13/20242008 5487 RxNorm ANGELA Woods, [facility] 4 09:28:02 Medications Name Sig Start Date Stop Date Status Note LastModified by Organization Details LastModified Time amoxicill in 500 mg capsule TAKE 4 TABLETS ONE HOUR PRIOR TO DENTAL PROCEDUR E active Not Available Not Available No t Available atorvasta tin 40 mg tablet Take 1 tablet every day by oral route in the evening for 90 days. 2023 active Not Available Not Available Not Avai lable acetamino phen 325 mg tablet Take 2 tablets every 6 hours by oral route as needed. active Not Available Not Available No t Available ketoconaz ole 2 % shampoo USE 3 TIMES PER WEEK TO SCALP, LEAVE ON ON 5 MINS AND RINSE active only uses as needed Not Available Not Available Not Available polyethyl laisha glycol 3350 17 gram oral powder packet 17 g every 24 hours by oral route. 06/16 completed Not Available Not Available Not Available azithromy nirmala 250 mg tablet 05/20 completed Not Available Not Available Not Available Altamist 0.65 % nasal spray aerosol 1 {spray} 3 times a day by nasal route. 2023 active Not Available Not Available Not Avai lable meloxicam 15 mg tablet 11/30 completed Not Available Not Available Not Available atenolol 25 mg tablet TAKE 1 TABLET BY MOUTH EVERY DAY 01/12 completed Not Available Not Available Not Available sildenafi l 100 mg tablet TAKE ONE TABLET BY MOUTH EVERY DAY NEEDED 07/07 completed 03/18/23 on hold until re-start ed by surgery team Not Available Not Available Not Available pantopraz ole 20 mg tablet,de layed release TAKE 2 TABLETS BY MOUTH EVERY DAY active Not Available Not Available No t Available cefadroxi l 500 mg capsule 11/30 completed Not Available Not Available Not Available methocarb valente 750 mg tablet Take 1 tablet as needed by oral route for 15 days. 03/18 completed post-op Not Available Not Available Not Available imiquimod 5 % topical cream packet APPLY TO THE AFFECTED AREA TUESDAY- RIDAY AT BEDTIME FOR 2 WEEKS 07/07 completed Not Available Not Available Not Available benzonata te 100 mg capsule TAKE 1 CAPSULE BY MOUTH THREE TIMES A DAY 11/20 completed Not Available Not Available Not Available fluoxetin e 20 mg tablet Take 1 tablet every day by oral route. 07/07 completed 03/18/23 on hold until re-start ed by surgery team Not Available Not Available Not Available Senokot 8.6 mg tablet 2 {tbl}s by oral route. 06/16 completed Not Available Not Available Not Available allopurin ol 300 mg tablet TAKE 1 TABLET BY MOUTH EVERY DAY active Not Available Not Available No t Available carbidopa 25 mg-levodo pa 100 mg tablet 1 {tbl} 4 times a day by oral route. active Not Available Not Available No t Available lisinopri l 40 mg tablet TAKE 1 TABLET BY MOUTH EVERY DAY active Not Available Not Available No t Available atenolol 50 mg tablet TAKE 1 TABLET BY MOUTH EVERY DAY active Not Available Not Available No t Available amoxicill in 875 mg-potass ium clavulana te 125 mg tablet TAKE 1 TABLET BY MOUTH EVERY 12 FOR 10 DAYS. TAKE PRESCRIB ED WHILE NASAL PACKING IS IN PLACE. 07/07 completed Not Available Not Available Not Available Tylenol Extra Strength 500 mg tablet 2 {tbl}s every 6 hours by oral route. 03/17 completed Not Available Not Available Not Available oxycodone 5 mg tablet Take 1 tablet as needed by oral route for 7 days. 03/18 completed post-op Not Available Not Available Not Available sodium fluoride 1.1 % dental paste PLEASE SEE ATTACHED FOR DETAILED DIRECTIO NS active Not Available Not Available No t Available GaviLyte- G 236 gram-22.7 4 gram-6.74 gram-5.86 gram oral solution PLEASE SEE ATTACHED FOR DETAILED DIRECTIO NS 07/07 completed Not Available Not Available Not Available Xarelto 20 mg tablet Take 1 tablet every day by oral route at dinner for 30 days. 12/15 completed Not Available Not Available Not Available oxycodone 5 mg tablet,or al ONLY (not feeding tubes) 0 mg every 4 hours by oral route. 06/16 completed Not Available Not Available Not Available Eliquis 5 mg tablet TAKE 1 TABLET BY MOUTH TWICE A DAY active Not Available Not Available No t Available Eliquis 2.5 mg tablet 11/30 completed Not Available Not Available Not Available allopurin ol 200 mg tablet Take 300 mg by oral route. 01/12 completed Not Available Not Available Not Available Vitals Date Recorded Body height Body mass index (BMI) Body weight Heart rate Oxygen saturation Oxygen saturation in Arterial blood by Pulse oximetry Body temperature Systolic blood pressure Diastolic blood pressure Provider Name and Address Organization Details Last Updated DateTime 3 175.9 cm 25.8 kg/m2 27207.2 6 g 56 /min 98 % 98 % 97.8 [degF] 134 mm[Hg] 80 mm[Hg] Mel padron MA [facility] 3 10:33:09 Date Recorded Body height Body mass index (BMI) Body weight Heart rate Oxygen saturation Oxygen saturation in Arterial blood by Pulse oximetry Body temperature Systolic blood pressure Diastolic blood pressure Provider Name and Address Organization Details Last Updated DateTime 4 175.9 cm 25.2 kg/m2 06290.8 9 g 54 /min 98 % 98 % 98.1 [degF] 136 mm[Hg] 82 mm[Hg] Mel padron MA [facility] 4 09:40:15 Date Recorded Body height Body mass index (BMI) Body weight Oxygen saturation Oxygen saturation in Arterial blood by Pulse oximetry Heart rate Body temperature Systolic blood pressure Diastolic blood pressure Provider Name and Address Organization Details Last Updated DateTime 4 175.9 cm 25.9 kg/m2 04983.0 6 g 100 % 100 % 57 /min 97.6 [degF] 123 mm[Hg] 76 mm[Hg] Lana Martinez MA [facility] 4 09:36:21 Social History Question Answer Notes LastModified by Organizat ion Details LastModified Time Tobacco Smoking Status Never Smoker ANGELA Mcdaniel [facility] 05/20/2021 09:58:48 What Is Your Level Of Alcohol Consumption? Occasional 2-3 X Week Information not available 05/20/2021 Are You Currently Employed? Yes Information not available 05/20/2021 What Type Of Diet Are You Following? 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 No Information not available 05/20/2021 How Often Do You Need To Have Someone Help You When You Read Instructions, Pamphlets, Or Other Written Material From Your Doctor Or Pharmacy? Never Information not available 05/20/2021 Have You Served In The ? No Information not available 05/20/2021 *[facility] ONLY* Are You Presently Prescribed Opioid Medication By PCP Or Specialist? If YES -Provider Assess The Benefit For Other, Non-opioid Pain Therapies Instead, Even If The Patient Does Not Have OUD But Is Possibly At Risk. No Information not available 05/20/2021 How Many Children Do You Have? 2 Information not available 05/20/2021 Are You Sexually Active? Yes Information not available 05/20/2021 Are You Passively Exposed To Smoke? No Information not available 05/20/2021 Do You Use Any Illicit Or Recreational Drugs? No Information not available 12/15/2021 Do You Or Have You Ever Used Any Other Forms Of Tobacco Or Nicotine? No Information not available 12/15/2021 Sex: Unknown Functional Status Question Answer Note LastModified by Organizat ion Details LastModified Time Are you able to walk? YESWOREST Information not available 12/15/2021 What is your exercise level? Moderate walking 2 x week; walks 9-11,000 steps daily at work Information not available 05/20/2021 Mental Status None recorded. Family History Relationship Description Onset Age of this Age Resolved Age Notes LastModified by Organization Details LastModified Time Father Carcinoma of prostate 91 [email or web address] s Not available 05/20/2021 09:11:58 Mother Type 2 diabetes mellitus 92 [email or web address] s Not available 05/20/2021 09:12:10 Medical History Condition Response Gout Y Immunizations Vaccine Type Date Status Note Provider Nam e and Address Organization Details Recorded Time influenza, unspecified formulation 9 completed Not Available [facility] 03/17/2023 15:46:01 COVID-19, mRNA, LNP-S, PF, 30 mcg/0.3 mL dose 1 completed Not Available [facility] 03/17/2023 15:46:01 Influenza, recombinant, quadrivalent, PF 0 completed Not Available [facility] 03/17/2023 15:46:01 Influenza, split virus, trivalent, preservative 2 completed Not Available [facility] 03/17/2023 15:46:02 influenza, unspecified formulation 7 completed Not Available [facility] 03/17/2023 15:46:01 influenza, unspecified formulation 0 completed Not Available [facility] 03/17/2023 15:46:01 Influenza, split virus, quadrivalent, preservative 6 completed Not Available [facility] 03/17/2023 15:46:01 Influenza, split virus, quadrivalent, preservative 5 completed Not Available [facility] 03/17/2023 15:46:01 COVID-19, mRNA, LNP-S, PF, 30 mcg/0.3 mL dose 1 completed Not Available [facility] 03/17/2023 15:46:01 zoster live 6 completed Not Available [facility] 03/17/2023 15:46:02 Influenza, split virus, quadrivalent, preservative 8 completed Not Available [facility] 03/17/2023 15:46:01 influenza, unspecified formulation 3 completed Not Available [facility] 03/17/2023 15:46:01 COVID-19, mRNA, LNP-S, PF, 30 mcg/0.3 mL dose 1 completed Not Available [facility] 03/17/2023 15:46:01 influenza, unspecified formulation 8 completed Not Available [facility] 03/17/2023 15:46:02 Pneumococcal conjugate PCV 13 0 completed Not Available [facility] 03/17/2023 15:46:02 Tdap 1 completed Not Available [facility] 03/17/2023 15:46:02 Influenza, MDCK, quadrivalent, PF 9 completed Not Available [facility] 03/17/2023 15:46:01 influenza, unspecified formulation 3 completed Not Available [facility] 03/17/2023 15:46:01 influenza, unspecified formulation 7 completed Not Available [facility] 03/17/2023 15:46:01 Influenza, high-dose, quadrivalent, PF 1 completed Not Available [facility] 03/17/2023 15:46:01 zoster recombinant 1 completed Not Available [facility] 03/17/2023 15:46:01 Novel Fgeppifmx-Q7G8-29, all formulations 0 completed Not Available [facility] 03/17/2023 15:46:02 zoster recombinant 1 completed Not Available [facility] 03/17/2023 15:46:01 pneumococcal polysaccharide PPV23 2 completed Not Available [facility] 03/17/2023 15:46:01 Influenza, high-dose, quadrivalent, PF 2 completed Not Available [facility] 03/17/2023 15:46:01 Tdap 2 completed Not Available [facility] 03/17/2023 15:46:02 RSV, recombinant, protein subunit RSVpreF, adjuvant reconstituted, 0.5 mL, PF 4 completed Joana mathur, [facility] 09/01/2023 09:29:25 Pneumococcal conjugate PCV20, polysaccharide [id number] conjugate, adjuvant, PF 4 completed Joana mathur, [facility] 09/01/2023 09:31:04 Influenza, high-dose, trivalent, PF 4 completed [facility] 12/05/[facility] 08:29:50 Influenza, high-dose, quadrivalent, PF 3 completed Micheal Richards MD [address] [address], [place], [address], [facility] 12/07/2022 12:15:46 Past Encounters Encounter ID Performer Location Encounter Start Date Encounter Closed Date Diagnosis/Indication Diagnosis SNOMED-CT Code Diagnosis ICD10 Code Diagnosis Note [id number] Micheal Richards MD Main Office [address] [place] [address] 05/20/2021 08:49:33 05/20/2021 10:11:04 Adult health examination 294596124 Z00.00 Patient was counseled on healthy diet, exercise and nutrition due to Body mass index is 28 kg/m??. Last PSADate:Re sult:Plan: will test has fhx. Last Colonoscop y:Date:Res ult:Plan: done with Dr. Ashton 2 yrs ago, will try to get records, notes need repeat 5yrs Vaccines:T dAP: due, script providedZo ster: 02/18/20, 09/02/20PCV 13: 01/07/2020 PPSV23: script providedIn fluenza: 12/15/20Cov id: 05/12/20, 06/02/20, 11/21/20 Routine labs today Immunizati on status reviewed. Will screen based on risk factors. Regular dental and ophtho care advised as well as seat belt and sunscreen use. Distracted driving discussed. Medication reconciled . Advance directives discussed. Fatigue 72771628 R53.83 Hyperlipidemia 32365946 E78.5 Gout 18099497 M10.9 Hepatitis C screening 41 9550623 Z11.59 Nocturia 097011161 R35.1 Anxiety state 350485378 F41.1 Mindful exercise discussed. Wants to hold from medication at this time.If it gets worse he will let me know. Administra tion of pneumococcal vaccine 67289825 Z23 Administra tion of viral vaccine 31564742 Z23 Essential hypertension 95047271 I10 [id number] Main Office [address] [place] [address] 11/20/2021 08:43:24 11/20/2021 09:49:59 Essential hypertension 90945424 I10 Blood pressure relatively stable for now we will keep on his current regimen. Gout 34464095 M10.9 stable Atrial flutter 8452719 I 48.92 New onset atrial flutter.No history of sleep apnea. He is asymptomat ic the rate is controlled with atenolol. I reviewed the EKG with cardiologi st at [facility] Dr. Barron who agrees with the plan to anticoagul ate him. I will start him on Eliquis 5 mg twice daily as his last renal function was okay. Bleeding precaution s were discussed. His YPE2ZG1-ZJ Sc 2 score is 2 and his has bled score is 2.I have also ordered an echo and for him to be seen outpatient by cardiologi st.Continu e atenolol, advised him to limit his caffeine intake and also to limit his alcohol consumptio n. Screening for malignant neoplasm of colon 415865155 Z12.11 Anxiety state 782953379 F41.1 Mindful exercise discussed. Wants to hold from medication at this time.If it gets worse he will let me know. [id number] Micheal Richards MD Main Office [address] [place] [address] 12/15/2021 13:30:02 12/15/2021 14:52:40 Atrial flutter 0683767 I48.92 Sinus rhythm today on Eliquis 5 mg twice daily. Bleeding precaution s were discussed. His FQY7NV2-FU Sc 2 score is 2 and his has bled score is 2.To see cardiologi st this week and get echo in a few weeks.Cont inue atenolol, advised him to limit his caffeine intake and also to limit his alcohol consumptio n. Essential hypertension 57267762 I10 Blood pressure relatively stable for now we will keep on his current regimen. Tremor 49531174 R25.1 All other labs for tremor wnl will get LFT and Brain MRI.Faye le kadeem t of PD will refer to neuro to further evalOn beta willow possible essential tremor as stress brings it on, but tremors was noted on gait walk. Somewhat of a shuffling gait. [id number] Micheal Richards MD Main Office [address] [facility] [address] [facility] [place] [address] 01/27/2022 13:14:28 01/27/2022 14:02:34 Parkinson's disease 02758462 G20 Declined tx per neuro, was told neuro if tremor worsens to contact neuro for tx.Has follow up in 4mo, and MRI pending. Atrial flutter 8679784 I 48.92 Sinus rhythm today on Eliquis 5 mg twice daily. Bleeding precaution s were discussed. His [id number]-TM Sc 2 score is 2 and his has bled score is 2.Saw cardiologi st this week and had echo.No hx that would suggest SHANAE.Advise d to monitor HR.Continu e atenolol, advised him to limit his caffeine intake and also to limit his alcohol consumptio n. [id number] Micheal Richards MD Main Office [address] [facility] [address] [facility] [place] [address] 05/26/2022 09:16:15 05/26/2022 10:08:44 Adult health examination 610977580 Z00.00 Patient was counseled on healthy diet, exercise and nutrition due to Body mass index is 25.4 kg/m??. Last PSADate: 05/27/21Res ult: 0.9Plan: ordered due to fhx, pt agrees Last Colonoscop y:Date: 04/17/12Res ult: No polypPlan: Referral placed. Vaccines:T dAP: 05/20/21Zos ter: 02/18/20, 09/02/20PCV 13: 01/07/2020 PPSV23: 05/20/21Inf luenza: 11/23/21Co vid: 05/12/20, 06/02/20, 11/21/20, bivalent encouraged . Routine labs today Immunizati on status reviewed. Will screen based on risk factors. Regular dental and ophtho care advised as well as seat belt and sunscreen use. Distracted driving discussed. Medication reconciled . Advance directives discussed. MOLST/HCP given. Fatigue 56764408 R53.83 Hyperlipidemia 68469990 E78.5 Gout 16795974 M10.9 stable Nocturia 971133641 R35.1 Anxiety state 533088842 F41.1 Mindful exercise discussed. Wants to hold from medication at this time.If it gets worse he will let me know. Essential hypertension 01032123 I10 Blood pressure relatively stable for now we will keep on his current regimen. Parkinson's disease 4904 9000 G20 Following Neuro. Atrial flutter 2794926 I 48.92 Sinus rhythm today on Eliquis 5 mg twice daily. Bleeding precaution s were discussed. His ZUT0AS8-NC Sc 2 score is 2 and his has bled score is 2.Establis hed with cards.No hx that would suggest SHANAE, will screen this time however will screen.Adv ised to monitor HR.Continu e atenolol, advised him to limit his caffeine intake and also to limit his alcohol consumptio n. Snoring 24327941 R06.83 STOP BANG 4 with afib.Will order sleep study. Screening for malignant neoplasm of colon 568416848 Z12.11 Unintentio nal weight loss 965008822 R63.4 > 5% weight loss in ~6mo, he tells me he has made no change to diet, will start with blood work he is going to see GI for colo will hold FOBT unless colo booked far out. He will msg me and I will put order in. He denies any nausea, vomiting, difficulty swallowing , any changes in his bowel habits, abdominal pain, fever, night sweats any shortness of breath any changes in his diet, or any issues with chewing or swallowing , any teeth issues any change in taste and smell.Liborio y weight diary, will follow up in 3mo. 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 [id number] Micheal Richards MD Main Office [address] [facility] [address] [facility] [place] [address] 08/31/2022 09:22:02 08/31/2022 10:13:57 Unintentional weight loss 096494580 R63.4 > 5% weight loss in ~6mo, he tells me he has made no change to diet, blood work wnl he is going to see GI for colo inial apt Sep 13 but that is only for first meet thus will get occult test.Manny chambers Daily weight diary, will follow up in 3mo.Will get US and additional testAlso referral placed to [facility]. Snoring 15401428 R06.83 STOP BANG 4 with afib. He plans to reach out. Atrial flutter 2553170 I 48.92 Sinus rhythm today on Eliquis 5 mg twice daily. Bleeding precaution s were discussed. His XYQ1CR6-RL Sc 2 score is 2 and his has bled score is 2.Establis hed with cards.No hx that would suggest SHANAE, will screen this time however will screen.Adv ised to monitor HR.Continu e atenolol, advised him to limit his caffeine intake and also to limit his alcohol consumptio n. [id number] Mel connors [place] Main Office [address] [facility] [address] [place] [address] 09/15/2022 12:01:06 09/15/2022 12:01:37 [id number] Micheal Richards MD Main Office [address] [facility] [address] [place] [address] 11/30/2022 10:16:07 11/30/2022 11:14:13 Unintentional weight loss 153390909 R63.4 Gained 8lb will continue to monitor for now hold imaging. Colonoscop y pending but has had a pre-colono scopy appointmen t and procedure has been scheduled. It is encouragin g that his FOBT was negative. Snoring 03292028 R06.83 STOP BANG 4 with afib. Encouraged to follow-up with sleep medicine. Atrial flutter 0593413 I 48.92 Sinus rhythm today on Eliquis 5 mg twice daily. Bleeding precaution s were discussed. His [id number]-XI Sc 2 score is 2 and his has bled score is 2.Establis hed with cards.No hx that would suggest SHANAE, will screen given afib.Advis ed to monitor HR.Continu e atenolol, advised him to limit his caffeine intake and also to limit his alcohol consumptio n. Pituitary macroadenoma 050606115 D35.2 He plans to follow-up with neurosurge on in [place] per his endocrine recommenda tion. He has been evaluated by the ophthalmol ogist. Influenza vaccine needed 4645240007 106 Z23 Parkinson's disease 4904 9000 G20.A1 Follow-up with neurology, I did give him a physical therapy referral that specialize s in Parkinson' s disease locally. [id number] Micheal Richards MD Main Office [address] [facility] [address] [facility] [place], [place] [address] 03/18/2023 09:52:36 03/19/2023 14:00:42 [id number] Micheal Richards MD Main Office [address] [facility] [address] [facility] [place], [place] [address] 07/08/2023 09:18:13 07/08/2023 10:16:02 Adult health examination 772044462 Z00.00 Patient was counseled on healthy diet, exercise and nutrition due to Body mass index is 25.2 kg/m??. Last PSADate: 06/03/22Res ult: 0.9Plan: ordered due to fhx, pt agrees Last Colonoscop y:Date: 04/17/12Res ult: No polypPlan: Had colo yesterday, will try to get records. Vaccines:T dAP: 05/20/21Zos ter: 02/18/20, 09/02/20PCV 13: 01/07/2020 PPSV23: 05/20/21PCV 20: will advise next visit given PD.RSV: DiscussedI nfluenza: 11/30/22Co vid: encourage updated vaccine Routine labs today Immunizati on status reviewed. Will screen based on risk factors. Regular dental and ophtho care advised as well as seat belt and sunscreen use. Distracted driving discussed. Medication reconciled . Advance directives discussed. MOLST/HCP given. Fatigue 41451948 R53.83 TSH done by endo Hyperlipidemia 60819355 E78.5 Gout 69146011 M10.9 stable Nocturia 516112688 R35.1 Anxiety state 204338196 F41.1 Mindful exercise discussed. If it gets worse he will let me know. Essential hypertension 96880819 I10 Blood pressure relatively stable for now we will keep on his current regimen. Parkinson's disease 4904 9000 G20.A1 Following Neuro. Atrial flutter 1681547 I 48.92 Sinus rhythm today on Eliquis 5 mg twice daily. Bleeding precaution s were discussed. His MVZ9PJ7-SF Sc 2 score is 2 and his has bled score is 2.Establis hed with cards.Advi sed to monitor HR.Plans for EP. Snoring 18524577 R06.83 STOP BANG 4 with afib.Will order sleep study. Unintentio nal weight loss 957747252 R63.4 Pituitary macroadenoma 322685391 D35.2 s/p resection, followed by endo. Administra tion of viral vaccine 61244278 Z29.11 Administra tion of pneumococcal vaccine 66416376 Z23 [id number] Micheal Richards MD Main Office [address] [facility] [address] [facility] [place], [place] [address] 01/13/2024 09:21:22 01/13/2024 09:54:57 Essential hypertension 00461579 I10 Blood pressure relatively stable for now we will keep on his current regimen. Parkinson's disease 4904 9000 G20.A1 Following Neuro.Requ esting handicap placard, has some gait shuffle will see if they can assist him. Atrial flutter 0164706 I 48.92 s/p ablation, doing well.Is planning to consider sleep study down the line. Pituitary macroadenoma 418913707 D35.2 s/p resection, followed by endo. Health Concerns Section Related Observation LastModified by Organization Detai ls LastModified Time None Recorded Concern Status LastModified by Organization Details LastModified Time None Recorded Advance Directives Directive None Recorded Payers Encounter Date Sequence Insurance Name Policy Number Policy Ma Covered Member ID Ma Member ID Guarantor Name 09/15/2022 1 [place] [id number] Zenas F Dalton [id number] Zenas F Dalton 11/30/2022 1 [place] [id number] Zenas F Dalton [id number] Zenas F Dalton 03/18/2023 1 [place] [id number] Zenas F Dalton [id number] 14 Zenas F Dalton 07/08/2023 1 [place]) [id number] Zenas F Dalton [id number] Zenas F Dalton 01/13/2024 1 [place] (MEDICARE [place]PLACEMENT PPO) [id number] Scotty Franz [id number] Scotty Franz Notes Date Note Type Note Provider Name and Address Organization Details Recorded Time 11/30/2022 text/html The patient, accompanied by his , presents to discuss his chronic medical conditions. He is under the care of a neurologist for Parkinson's disease. He recently had a successful knee replacement and reports good postoperative progress. He is gaining some weight and feels generally well. The patient is also under the care of an shingler for a pituitary macroadenoma. He has seen an purchasing and claims supervisor for an eye exam and reports no current visual deficits, he is awaiting an evaluation from a neurosurgeon concerning the size of the macroadenoma. His Afib is stable. Micheal Richards MD [address], [address], [facility] 12/07/2022 12:24:27 03/18/2023 text/html Hospitalization Contact RecordReported bypatient.Follow UpHospital: Out of Area Hospital; admit date: (Please enter in format 'MM/DD/YYYY') (03/15/23); date of discharge: (Please enter in format 'MM/DD/YYYY') (03/17/23); date of contact: (Please enter in format 'MM/DD/YYYY') (03/18/23)Notes:Medic are covered inpatient stay? no - BCBS Plan MELIZA with in 48 working hours? yes HCP on file? yes MOLST on file? yes Discharge Summary available? yes 67 y/o white male w/ PMH significant for afib/flutter on eliquis, hypertension, anxiety, GERD, ED, HLD, OA, Parkinson's disease, with incidental finding for pituitary tumor presented to [facility] as scheduled for surgery to remove the tumor.-No complications reported-d/c home as planned on 03/17 w/o need for home services 03/18/23 CM met with patient wnd in office. He was already in building getting daily labs drawn. Alert and oriented x4 - in good spirits. Reports feeling tired but otherwise well. Has nasal packing in place which will be removed at visit next week. Until then, patient has daily labs to be drawn to check his hormones and other levels. Has site on each side of head where screws were placed for surgery, and sutured area on L hip - all of which are free of s/s infection. Was allowed to shower today and enjoyed that. Has many f/u appts scheduled including in person and TH as f/u MRIs.Reviewed meds and noted chart for those on hold right now.CM advised patient/ to call with any needs and gave # for direct CM office contact.Patient has PE sched in May - and will attend. Micheal Richards MD [address] [address], [place], [address], [facility] 03/19/2023 14:00:41 07/08/2023 text/html Medicare Annual Wellness VisitReported bypatient.Diet and Nutrition:healthy diet Fracture Risk:no recent explained fracture Physical Activity:discussed weightbearing activities; discussed exercise habits Depression Risk:see phq Concentration and Memory:no decreased concentrating ability Speech/Motor difficulties:no speech difficulties Hearing:no loss of hearing Vision:no vision problems Activities of Daily Living:able to bathe with limited or no assistance; able to contol urination and bowels; able to dress with limited or no assistance; able to feed self with limited or no assistance; able to get out of chair or bed with limited or no assistance; able to groom with limited or no assistance; able to toilet with limited or no assistance Instrumental Activities of Daily Living:able to do house work with limited or no assistance; able to grocery shop with limited or no assistance; able to manage medications with limited or no assistance; able to manage money with limited or no assistance; able to prepare meals with limited or no assistance; able to use the phone with limited or no assistance Falls Risk Assessment:no fall since last visit Home Safety:reviewed sun protection; no unsafe gavin hazzards; no unsafe stairs; working smoke/CO detectors; good lighting in the home Here for wellness visit. Reviewed chronic medications and medical problems. Discussed screening guidelines as well. Micheal Richards MD [address] [address], [place], [address], [facility] 07/08/2023 10:09:59 01/13/2024 text/html Hypertension F/UReported bypatient.Associated Symptoms:no dizziness; no lightheadedness; no chest pain; no shortness of breath; no palpitations; no edema; no calf pain with exertion Lifestyle:regular exercise; exercises 2 times/week; exercises for 30-45 minutes/day;high salt intake Medications:taking medications as directed; no side effects from medication Micheal Richards MD [address] [place] [address], [phone], [facility] 01/13/2024 09:51:16
--- OUTSIDE RECORDS SUMMARY | 2024-02-14 12:12 | XMS_ITS | Data Portability ---
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 He was scheduled for right total knee replacement a couple weeks ago. We had to delay this day of surgery, due to the large laceration on his right lower leg. We have rescheduled him for November 15. I wanted to recheck the laceration today to ensure that it is healed appropriately. The laceration which is about 3 cm in length, is now significantly improved. There is a dry well-healing scab. There is no significant surrounding erythema. There is no open wound. I discussed with him that although he may be at very slightly increased risk with this laceration, I am now okay proceeding if he is aware of these risk. He is. We will proceed with total knee replacement on Tuesday. Not available 11/12/2022 10:37:32 12/06/2022 12/06/2022 HPI : Patient is doing well 3 weeks status post right total knee arthroplasty. They deny fever, chest pain and shortness of breath. They are compliant with anticoagulation protocol. He is using Tylenol only for pain. He is back to his regular and routine dose of Eliquis. He continues to do home physical therapy and is making good progress. Physical Exam : Patient is well nourished, well- developed, in no acute distress, with appropriate mood and affect. The patient demonstrates good knee strength. The incision is clean and dry with no sign of infection. Negative calf tenderness and Eliana's sign. Range of motion is from 5-120 degrees. Assessment/Plan : The patient is doing well 3 weeks from total knee arthroplasty. Continue 28 day course of anticoagulation therapy. The patient will do physical therapy and return for follow-up in 1 month for re-evaluation; sooner with any problems. I have encouraged him to place an emphasis on latter day of full extension of the knee. This patient was seen and evaluated by Max Medina MS, PA-C in indirect conjunction with documenting/superv ising provider Jose L Wood MD. He agrees with history, physical examination, tests/diagnostic imaging, and treatment plan. Not available 12/06/2022 09:52:07 01/07/2023 01/07/2023 HPI : Patient is here for a 6 week follow-up from a right TKA. He is recovering well. He is walking with a cane or without an assist device. Pain is greatly improving. He has completed physical therapy. He is very happy with his progress. Physical Exam : Patient is well nourished, well- developed, in no acute distress, with appropriate mood and affect. The patient is AAOx3. The patient demonstrates good knee motion and strength. The incision is well healed. Range of motion is 3 to 130 degrees. Assessment/Plan : The patient is functioning well 6 weeks from total knee arthroplasty. Continue physical therapy as needed. Return for follow-up in 2 months with x-rays at that time. Not available 01/07/2023 09:15:21 03/11/2023 03/11/2023 Pleasant 67-year-old male status post right total knee arthroplasty 11/15/[address] Wood doing well clinically. He will continue with the stretching exercise regimen he knows when to take his antibiotic prophylaxis prior to dental work. Reevaluation around his anniversary date November 2023 should he have any questions or concerns he should contact my office. He agrees with this plan. Patient was seen and evaluated by Max Bustos PA-C in indirect conjuction with Documenting Provider: Jose L Wood MD . He/She agrees with history, physical examination, tests/diagnostic imaging, and treatment plan. Additional treatment plan discussed with the patient (only initiated if in boldface font) otherwise not applicable. Treatment may include the following; - Provider focused nonsteroidal anti-inflammatory regimen (discussed were the pros, cons, benefits and risks as well as any black box warnings) in patients over 60 years old they should be very cautious in taking these medications due to potential decreased kidney function and or elevated blood pressure. - Analgesic pain medication for pain suppression (discussed were the pros, cons, benefits and risks as well as any black box warnings) - The use of topical pain relieving medication were discussed - The use of ice to decrease inflammation and pain - The use of assistive ambulatory devices for ambulation and fall prevention - Formal specific guided physical therapy program I reviewed my findings at length with the patient today. ??We discussed the nature and etiology of this problem along with current treatment options. We discussed the expected course and outcomes and what to expect. We also discussed risks and benefits. ?? All of their questions were answered today, and there was exhibited understanding and comprehension of all that was discussed. Time Spent: 10 minutes were spent reviewing previous imaging and charting. ??10 minutes were spent obtaining patient history. ??5 minutes were spent on physical exam. ??5??minutes were spent explaining diagnosis and assessment. Today's documentation was made using voice recognition software. This note may contain grammatical errors secondary to the software. Not available 03/11/2023 09:15:28 11/17/2023 11/17/2023 HPI : Patient is here for 1 year follow-up for a right total knee replacement.? ? Patient reports good pain relief in the knee and satisfactory latter day of function in terms of activities of daily living. Current condition is improved relative to their pre operative condition. They have not encountered any major problems since their last office visit. He is very pleased with the long-term results of his right knee arthroplasty. He reports that he is back to a high level of comfort and function. He instructs me to please say hello to Dr. Wood. He does not have any concerns or complaints. Physical Exam : Patient is well nourished, well-developed, in no acute distress, with appropriate mood and affect. The patient is oriented to time, place, and person. Respirations are even and unlabored. The affected limb is well-perfused, with well healed skin incision. The patient demonstrates good knee motion, stability, and strength. The knee moves from 0-150 degrees. Muscle strength is normal. Pedal pulses are palpable. X-Ray: 5 view x-ray study of right knee(s) obtained during today's office encounter does not show any signs of implant related issues including loosening, malposition, instability, periprosthetic fracture, periosteal reaction or infection. Assessment/Plan : This patient is functioning well after knee arthroplasty. Continue knee conditioning exercises. Pywo-anf-gxqixpm medications as needed. The patient understands that ultimate failure may occur due to mechanical wear, loosening or breakage. Follow-up at approximately five year post-op is recommended to assess for the possibility of failure. Follow up sooner with any problems. At least 25 minutes were spent reviewing previous charting and radiographs, obtaining history and physical exam, and reviewing treatment plan. This patient was seen and evaluated by Max Medina MS, PA-C in indirect conjunction with documenting/superv ising provider Jose L Wood MD. He agrees with history, physical examination, tests/diagnostic imaging, and treatment plan. Not available 11/17/2023 10:20:10 Plan of Treatment Reminders Order Date Submit Date Provider Last Modified By Organization Details Last Modified Time Details Appointments None recorded. Lab None recorded. Referral None recorded. Procedures None recorded. Surgeries None recorded. Imaging XR, knee, 3 view 2023 024 [email or web address] [facility], [address], [address], [place], [address], 4 09:39:25 XR, knee, 3 view 2023 024 [email or web address] [facility], [address], [place], [address], 4 10:28:16 Medication Orders amoxicill in 500 mg capsule 2023 024 [id number], [address] [place] [address], [address], 09:16:23 Patient TargetsNo targets recorded. Patient Instructions Encounter Date Encounter Id Patient Instructions Last Modified By Organization Details Last Modified Time 03/11/2023 [id number] X-rays reveal well-seated well-positioned right total knee arthroplasty femoral and tibial component only with no acute bony abnormality. Not available 03/11/2023 09:14:34 Reason for Referral None Reported. Problems Name Problem SNOMED Code Status Onset Date Resolution Date Notes Provider Name and Address Organization Details Recorded Time Laceration of lower leg 066786553 Active 2022 Jose L Wood MD [address], [place], [address], [place] [facility] 3 10:36:09 History of right total knee replacement 4475970384646 102 Active 2022 MAX MEDINA PA-C [address], [place], [address], [place] [facility] 3 09:50:48 Osteoarthri tis of right knee joint 2021117443984 00 Active 2022 Jose L Wood MD [address], [facility] [place], [address], [place] [facility] 3 14:45:38 Problem Notes None recorded. Procedures Surgical History Date Name Laterality Status Provider Name and Address Organization Details Recorded Time Knee Joint/Bursa Asp & Inj completed MAX BUSTOS PA-C [address], [place], [address], [place] [facility] 06/02/2022 09:06:35 TOTAL KNEE REPLACEMENT (SURG) completed Alexandrea Walls [facility] 12/06/2022 15:48:26 Imaging Results None recorded. Procedure Notes None recorded. Medical Equipment None Reported. Allergies No known drug allergies Medications Name Sig Start Date Stop Date Status Note LastModified by Organization Details LastModified Time amoxicillin 500 mg capsule TAKE 4 TABLETS ONE HOUR PRIOR TO DENTAL PROCEDURE active Not Available Not Available No t Available atorvastati n 40 mg tablet TAKE 1 TABLET BY MOUTH EVERY DAY IN THE EVENING active Not Available Not Available No t Available ketoconazol e 2 % shampoo USE 3 TIMES PER WEEK TO SCALP, LEAVE ON ON 5 MINS AND RINSE 06/02 completed Not Available Not Available Not Available meloxicam 15 mg tablet 01/07 completed Not Available Not Available Not Available atenolol 25 mg tablet TAKE 1 TABLET BY MOUTH EVERY DAY active Not Available Not Available No t Available pantoprazol e 20 mg tablet,bibi yed release TAKE 2 TABLETS BY MOUTH EVERY DAY active Not Available Not Available No t Available Kenalog 40 mg/mL suspension for injection Take 1 mL by injection route. 01/07 completed Not Available Not Available Not Available cefadroxil 500 mg capsule 01/07 completed Not Available Not Available Not Available methocarbam ol 750 mg tablet 01/07 completed Not Available Not Available Not Available imiquimod 5 % topical cream packet APPLY TO THE AFFECTED AREA TUESDAY- AT BEDTIME FOR 2 WEEKS 01/07 completed Not Available Not Available Not Available benzonatate 100 mg capsule TAKE 1 CAPSULE BY MOUTH THREE TIMES A DAY 06/02 completed Not Available Not Available Not Available allopurinol 300 mg tablet TAKE 1 TABLET BY MOUTH EVERY DAY active Not Available Not Available No t Available carbidopa 25 mg-levodopa 100 mg tablet TAKE 1 TABLET BY MOUTH FOUR TIMES A DAY FOR 30 DAYS active Not Available Not Available No t Available lisinopril 40 mg tablet TAKE 1 TABLET BY MOUTH EVERY DAY active Not Available Not Available No t Available amoxicillin 875 mg-potassiu m clavulanate 125 mg tablet TAKE 1 TABLET BY MOUTH EVERY 12 FOR 10 DAYS. TAKE PRESCRIBE D WHILE NASAL PACKING IS IN PLACE. active Not Available Not Available No t Available oxycodone 5 mg tablet TAKE 1 TO 2 TABLETS (5-10 MG TOTAL) BY MOUTH EVERY 4 HOURS NEEDED (PARTIAL FILL OKAY) active Not Available Not Available No t Available sodium fluoride 1.1 % dental paste PLEASE SEE ATTACHED FOR DETAILED DIRECTION S active Not Available Not Available No t Available lidocaine (PF) 10 mg/mL (1 %) injection solution Take 1 mL by injection route. 01/07 completed Not Available Not Available Not Available GaviLyte-G 236 gram-22.74 gram-6.74 gram-5.86 gram oral solution PLEASE SEE ATTACHED FOR DETAILED DIRECTION S active Not Available Not Available No t Available Eliquis 5 mg tablet TAKE 1 TABLET BY MOUTH TWICE A DAY active Not Available Not Available No t Available Eliquis 2.5 mg tablet 01/07 completed Not Available Not Available Not Available Vitals Date Recorded Body height Body mass index (BMI) Body weight Provider Name and Address Organization Details Last Updated DateTime 01/07/2023 177.8 cm 24.5 kg/m2 [address]369[address] [place] [facility] 01/07/2023 08:57:41 Date Recorded Body height Body mass index (BMI) Body weight Provider Name and Address Organization Details Last Updated DateTime 11/17/2023 177.8 cm 24.4 kg/m2 [address]347.[address] [place] [facility] 11/17/2023 10:00:29 Date Recorded Body height Body mass index (BMI) Body weight Provider Name and Address Organization Details Last Updated DateTime 11/12/2022 177.8 cm 24.5 kg/m2 86833.[address] [place] [facility] 11/12/2022 10:30:25 Date Recorded Body height Body mass index (BMI) Body weight Provider Name and Address Organization Details Last Updated DateTime 12/06/2022 177.8 cm 24.5 kg/m2 43484.[address] [place] [facility] 12/06/2022 09:46:50 Social History None recorded. Functional Status None recorded. Mental Status None recorded. Family History Relationship Description Onset Age of this Age Resolved Age Notes LastModified by Organization Details LastModified Time Mother Family history of malignant neoplasm [email or web address] Not available 06/02 08:46:55 Mother Diabetes mellitus [email or web address] Not available 06/02 08:47:08 Father Diabetes mellitus [email or web address] Not available 06/02 08:47:03 Medical History Condition Response Heart Attack ([place]) Y Hypertension Y Past Encounters Encounter ID Performer Location Encounter Start Date Encounter Closed Date Diagnosis/Indication Diagnosis SNOMED-CT Code Diagnosis ICD10 Code Diagnosis Note [id number] MD CASPER Hayward [address] [address] 06/02/2022 08:04:11 06/02/2022 09:09:00 Pain of bilateral knee joints 8931092557 27594 M25.562 Osteoarthr itis of right knee joint 6298386754 71508 M17.11 [id number] [facility] [address] [address] 07/02/2022 13:44:53 07/02/2022 14:52:41 Osteoarthritis of right knee joint 5820118975 32978 M17.11 Arthritis of knee 940590 002 M13.869 [id number] MD CASPER Hayward [facility] [address] [address] 11/12/2022 10:23:21 11/12/2022 10:43:10 Laceration of lower leg 992110244 S81.811A [id number] MD CASPER Hayward [facility] [address] [place] [address] 12/06/2022 09:20:17 12/06/2022 09:53:07 History of right total knee replacement 2081482948 342396 Z96.651 [id number] [facility] [address] [place] [address] 01/07/2023 08:48:24 01/07/2023 09:17:03 History of right total knee replacement 9127113526 274322 Z96.651 [id number] MD CASPER Hayward [facility] [address] [address] 03/11/2023 08:27:52 03/11/2023 09:20:46 History of right total knee replacement 3755013346 525917 Z96.651 [id number] [facility] [address] [address] 11/17/2023 09:43:43 11/17/2023 10:28:16 History of right total knee replacement 0798636324 933696 Z96.651 Health Concerns Section Related Observation LastModified by Organization Detai ls LastModified Time None Recorded Concern Status LastModified by Organization Details LastModified Time None Recorded Advance Directives Directive None Recorded Payers Encounter Date Sequence Insurance Name Policy Number Policy Ma Covered Member ID Ma Member ID Guarantor Name 11/12/2022 1 [place] [id number] Zenas F Fackler [id number] Zenas Fackler 12/06/2022 1 [place] [id number] Zenas F Fackler [id number] Zenas Fackler 01/07/2023 1 [place] [id number] Zenas F Fackler [id number] Zenas Fackler 03/11/2023 1 [place] [id number] Zenas F Fackler [id number] Zenas Fackler 11/17/2023 1 [place] PPO) [id number] Zenas Fackler [id number] Zenas Fackler Notes Date Note Type Note Provider Name and Address Organization Details Recorded Time 03/11/2023 text/html Pleasant 67-year-old male status post R TKA, Abhijeet, rs 11/15/2022. Patient states he is doing well he does not have any discomfort he does intermittent stretching exercises he knows when to take his antibiotic prophylaxis here for 3-month follow-up with x-rays. X-rays reveal well-seated well-positioned right total knee arthroplasty femoral and tibial component only with no acute bony abnormality. MAX BUSTOS PA-C [address] [place] [address], [address], [place] [facility] 03/11/2023 09:16:48
--- OUTSIDE RECORDS SUMMARY | 2024-02-14 12:12 | XMS_ITS | Continuity of Care Document ---
Author Organization [facility], Main Office Address [address] [facility] [address] [address] [place] [address] Care Team Providers Care Professor Of Geology Name Role Phone MICHEAL RICHARDS Primary Care Provider REE HENSLEY Orthopedic Surgeon [phone] [address] [place] Unit Support Representative SUMANTH ESCOBAR Neurologist [facility] Secondary School Teacher [phone] ISAI BONILLA Windows Systems Admin [phone] Assessment No assessment recorded. Plan of Treatment Reminders Order Date Submit Date Provider Last Modified By Organization Details Last Modified Time Details Appointments PE EST 025 01:00PM Micheal Richards MD Not available Not available Not available Lab None record ed. Referral None record ed. Procedures None record ed. Surgeries None record ed. Imaging None record ed. Medication Orders None record ed. Patient TargetsNo targets recorded. Patient Instructions Encounter Date Encounter Id Patient Instructions Last Modified By Organization Details Last Modified Time 01/13/2024 [id number] parkinson's dise ase: care instructions [email or web address] Not available 01/13/2024 09:49:13 electrical cardioversion: before your procedure [email or web address] Not available 01/13/2024 09:49:13 Electrophysiolog y (EP) Study: Before Your Procedure ckocaren Not available 01/13/2024 09:49:13 high blood press ure: care instructions ckokar Not available 01/13/2024 09:49:13 learning about h igh blood pressure ckokar Not available 01/13/2024 09:49:13 Reason for Referral None Reported. Problems Name Problem SNOMED Code Status Onset Date Resolution Date Notes Provider Name and Address Organization Details Recorded Time Gout 94508301 Active 2021 ANGELA Wilcox, [facility] 3 10:21:41 Essential hypertens ion 69336721 Active ANGELA Wilcox, [facility] 3 10:21:41 Hyperlipi demia 30829960 Active ANGELA Wilcox, [facility] 3 10:21:41 Erectile dysfuncti on 551083153 Active ANGELA Wilcox, [facility] 10:21:41 Gastroeso phageal reflux disease without esophagit is 906184105 Active ANGELA Wilcox, [facility] 3 10:21:41 Diverticu losis of colon 985715744 Completed 08/31/2022 Micheal Richards MD [address], [place], [address] [place] [address] 3 07:31:42 Osteoarth ritis 967139102 Active 2021 Knee right side. ANGELA Wilcox, [facility] 3 10:21:41 Anxiety state 178961115 Active 2021 ANGELA Wilcox, [facility] 3 10:21:41 Parkinson 's disease 71083130 Active 2021 ANGELA Wilcox, [facility] 3 10:21:41 Atrial flutter 2025650 Active ANGELA Wilcox, [facility] 3 10:21:41 Tremor 57472548 Completed 05/26/2022 Micheal Richards MD [address], [place], [address], [facility] 3 09:39:01 Pituitary macroaden alex 254998726 Active 2022 ANGELA Wilcox, [facility] 3 10:21:41 History of diverticu litis 070522529964 100 Active 2022 ANGELA Wilcox, [facility] 3 10:21:41 Unintenti onal weight loss 861883835 Completed 202201/13/2024 Micheal Richards MD [address], [place], [address], [facility] 4 09:48:28 Neoplasm of pituitary gland 325203588 Active 2023 ANGELA Woods, [facility] 4 09:28:16 History of respirato ry disease 365313208 Active 2023 ANGELA Woods, [facility] 4 09:28:16 Benign neoplasm of brain 84639570 Active 2023 ANGELA Woods, [facility] 4 09:28:17 Nasal congestio n 17071148 Completed 202301/13/2024 Micheal Richards MD [address], [place], [address], [facility] 4 09:48:42 Problem Notes None recorded. Procedures Surgical History Date Name Laterality Status Provider Name and Address Organization Details Recorded Time 07/07/19 24 Colonoscopy completed Mel gaytan MA [facility] 07/08/2023 09:43:54 03/15/19 24 hypophysectomy completed Shakira Lo RN [facility] 03/18/2023 09:57:44 11/16/19 23 total knee replacement completed Joana Mejia [facility] 11/17/2022 13:17:56 09/16/19 23 FOBT completed Lissette Olsonsachin MathewjoslynANGELA [facility] 09/15/2022 16:55:12 02/07/18 72 procedure on nasal septum completed Raul Avalos MA [facility] 05/26/2022 09:29:00 repair of meniscus completed Mel gaytan MA [facility] 05/20/2021 09:13:25 Imaging Results None recorded. Procedure Notes None recorded. Medical Equipment None Reported. Allergies Allergen ID Allergen Name Allergen Category Reaction Reaction Severity Criticality Documentation Date Start Date Code Code System Note Provider Name and Address Organization Details Recorded Time 26739 hydrochlo rothiazid e medicatio n Not available Not available Not available 01/13/20242008 5487 RxNorm ANGELA Woods [facility] 09:28:02 Medications Name Sig Start Date Stop [...] Updated DateTime 4 175.9 cm 25.9 kg/m2 73292.0 6 g 100 % 100 % 57 /min 97.6 [degF] 123 mm[Hg] 76 mm[Hg] Lana Martinez MA [facility] 4 09:36:21 Social History Question Answer Notes LastModified by Organizat ion Details LastModified Time Tobacco Smoking Status Never Smoker ANGELA Mcdaniel [facility] 05/20/2021 09:58:48 What Is Your Level Of Alcohol Consumption? Occasional 2-3 X Week Information not available 05/20/2021 Are You Currently Employed? Yes Information not available 05/20/2021 What Type Of Diet Are You Following? 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 [employer] Information not available 05/20/2021 Do [...] Immunizations Vaccine Type Date Status Note Provider Howie gross and Address Organization Details Recorded Time influenza, unspecified formulation 9 completed Not Available [facility] 03/17/2023 15:46:01 COVID-19, mRNA, LNP-S, PF, 30 mcg/0.3 mL dose 1 completed Not Available [facility] 03/17/2023 15:46:01 Influenza, recombinant, quadrivalent, PF 0 completed Not Available [facility] 03/17/2023 15:46:01 Influenza, split virus, trivalent, preservative 2 completed Not Available [facility] 03/17/2023 15:46:02 influenza, unspecified formulation 7 completed Not Available [facility] 03/17/2023 15:46:01 influenza, unspecified formulation 0 completed Not Available [facility] 03/17/2023 15:46:01 Influenza, split virus, quadrivalent, preservative 6 completed Not Available [facility] 03/17/2023 15:46:01 Influenza, split virus, quadrivalent, preservative 5 completed Not Available [facility] 03/17/2023 15:46:01 COVID-19, mRNA, LNP-S, PF, 30 mcg/0.3 mL dose 1 completed Not Available [facility] 03/17/2023 15:46:01 zoster live 6 completed Not Available [facility] 03/17/2023 15:46:02 Influenza, split virus, quadrivalent, preservative 8 completed Not Available [facility] 03/17/2023 15:46:01 influenza, unspecified formulation 3 completed Not Available [facility] 03/17/2023 15:46:01 COVID-19, mRNA, LNP-S, PF, 30 mcg/0.3 mL dose 1 completed Not Available [facility] 03/17/2023 15:46:01 influenza, unspecified formulation 8 completed Not Available [facility] 03/17/2023 15:46:02 Pneumococcal conjugate PCV 13 0 completed Not Available [facility] 03/17/2023 15:46:02 Tdap 1 completed Not Available [facility] 03/17/2023 15:46:02 Influenza, MDCK, quadrivalent, PF 9 completed Not Available [facility] 03/17/2023 15:46:01 influenza, unspecified formulation 3 completed Not Available [facility] 03/17/2023 15:46:01 influenza, unspecified formulation 7 completed Not Available [facility] 03/17/2023 15:46:01 Influenza, high-dose, quadrivalent, PF 1 completed Not Available [facility] 03/17/2023 15:46:01 zoster recombinant 1 completed Not Available [facility] 03/17/2023 15:46:01 Novel [id number], all formulations 0 completed Not Available [facility] 03/17/2023 15:46:02 zoster recombinant 1 completed Not Available [facility] 03/17/2023 15:46:01 pneumococcal polysaccharide PPV23 2 completed Not Available [facility] 03/17/2023 15:46:01 Influenza, high-dose, quadrivalent, PF 2 completed Not Available [facility] 03/17/2023 15:46:01 Tdap 2 completed Not Available [facility] 03/17/2023 15:46:02 RSV, recombinant, protein subunit RSVpreF, adjuvant reconstituted, 0.5 mL, PF 4 completed Joana mathur, [facility] 09/01/2023 09:29:25 Pneumococcal conjugate PCV20, polysaccharide [id number] conjugate, adjuvant, PF 4 completed Joana mathur, [facility] 09/01/2023 09:31:04 Influenza, high-dose, trivalent, PF 4 completed Joana mathur, [facility] 12/05/2023 08:29:50 Influenza, high-dose, quadrivalent, PF 3 completed Micheal Richards MD [address] [address], [place], [address], [facility] 12/07/2022 12:15:46 Past Encounters Encounter ID Performer Location Encounter Start Date Encounter Closed Date Diagnosis/Indication Diagnosis SNOMED-CT Code Diagnosis ICD10 Code Diagnosis Note [id number] Micheal Richards MD Main Office [address] [facility] [address] [facility] [place] [phone] 01/13/2024 09:21:22 01/13/2024 09:54:57 Essential hypertension 60437570 I10 Blood pressure relatively stable for now we will keep on his current regimen. Parkinson's disease 4904 9000 G20.A1 Following Neuro.Requ esting handicap jazmine, has some gait shuffle will see if they can assist him. Atrial flutter 5559090 I 48.92 s/p ablation, doing well.Is planning to consider sleep study down the line. 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 Health Concerns Section Related Observation LastModified by Organization Detai ls LastModified Time None Recorded Concern Status LastModified by Organization Details LastModified Time None Recorded Payers Encounter Date Sequence Insurance Name Policy Number Policy Ma Covered Member ID Ma Member ID Guarantor Name 01/13/2024 1 [facility]: MEDIC[place] PPO BLUE (MEDICARE REPLACEMENT PPO) [id number] Scotty Monroyiss [id number] Scotty Franz Notes Date Note Type Note Provider Name and Address Organization Details Recorded Time 01/13/2024 text/html Hypertension F/UReported bypatient.Associat ed Symptoms:no dizziness; no lightheadedness; no chest pain; no shortness of breath; no palpitations; no edema; no calf pain with exertion Lifestyle:regular exercise; exercises 2 times/week; exercises for 30-45 minutes/day;high salt intake Medications:taking medications as directed; no side effects from medication Micheal Richards MD [address] [facility] [facility] [address], [place], [address], [facility] 01/13/2024 09:51:16
== END 2024-02-14 11:24 | disposition home or self-care (01) ==
PROVIDERS: PCP Family Medicine; Visit Provider Student in an Organized Health Care Education/Training Program
DX: D35.2 Benign neoplasm of pituitary gland (principal)
CPT/HCPCS: 99213

== ENCOUNTER → 2024-02-14 10:53 | Outpatient (BNVA) | payer BC, SELFPAY | PROVIDERS: PCP Family Medicine; Visit Provider Student in an Organized Health Care Education/Training Program ==

== ENCOUNTER 2024-05-21 10:19 | Outpatient (REF) | payer BC, SELFPAY ==
--- OUTSIDE RECORDS SUMMARY | 2024-05-21 11:45 | XMS_ITS | Clinical Summary ---
Author Organization [facility] Address [address] [place] [address] Care Team Providers Care Manager Location Name Role Phone Micheal Okeefe MD Primary Care Provider [phone] Allergies No known active allergies Medications Medication Sig Dispensed Refills Start Date End Date Status allopurinol (ZYLOPRIM) 300 MG tablet Take 1 tablet (300 mg total) by mouth daily. 0 06/26/2021 Active atorvastatin (LIPITOR) tablet 40 mg Take 1 tablet (40 mg total) by mouth. 0 11/09/2020 Active lisinopril (PRINIVIL,ZESTRIL) tablet 40 mg Take 1 tablet (40 mg total) by mouth daily. 0 03/27/2021 Active carbidopa-levodopa (SINEMET) 25-100 MG per tablet TAKE 1 TABLET BY MOUTH THREE TIMES A DAY FOR 30 DAYS 0 09/10/2022 Active ketoconazole (NIZORAL) 2 % shampoo 3 (three) times a week. 0 Active atenolol (TENORMIN) tablet 25 mg Take 1 tablet (25 mg total) by mouth daily. 0 Active Acetaminophen (TYLENOL EXTRA STRENGTH PO) Take 2 tablets by mouth every 6 (six) hours as needed. 0 Active calcium carbonate (TUMS) 500 MG chewable tablet Chew 1 tablet (500 mg total) by mouth daily as needed for heartburn. 0 Active apixaban (ELIQUIS) 5 MG TABS tablet Take 1 tablet (5 mg total) by mouth 2 (two) times a day. 60 tablet 0 11/30/2022 Active meloxicam (MOBIC) 15 MG tablet Take 1 tablet (15 mg total) by mouth daily. 15 tablet 0 11/16/2022 Active methocarbamol (ROBAXIN) 750 MG tablet Take 1 tablet (750 mg total) by mouth every 6 (six) hours as needed (spasms). 60 tablet 0 11/16/2022 Active oxyCODONE (ROXICODONE) 5 MG immediate release tablet Take 1 tablet (5 mg total) by mouth every 4 (four) hours as needed for pain. 42 tablet 0 11/16/2022 Active senna-docusate (PERICOLACE) 8.6-50 MG Take 1 tablet by mouth 2 (two) times a day. 14 tablet 0 11/16/2022 Active Active Problems Problem Noted Date Diagnosed Date Arthritis of knee, right 03/03/2022 Arthritis of knee, right 12/01/2021 Family History Medical History Relation Name Comments Diabetes Father Cancer Mother Diabetes Mother Relation Name Status Comments Father (Age 97) Natural Mother (Age 90) DM Social History Tobacco Use Types Packs/Day Years Used Date Smoking Tobacco: Never Smokeless Tobacco: Never Tobacco Cessation:Counseling Given: Not Answered Alcohol Use Standard Drinks/Week Comments Yes 0 (1 standard drink = 0.6 oz pur e alcohol) 2 glasses wine/beer per week Sex and Gender Information Value Date Recorded Sex Assigned at Male 09/27/2022 4:18 PM EDT Gender Identity Male 09/27/2022 4:18 PM EDT Sexual Orientation Not on file Job Start Date Occupation Industry Not on file Not on file Not on file Last Filed Vital Signs Vital Sign Reading Time Taken Comments Blood Pressure 133/77 11/16/2022 7:43 AM EDT Pulse 64 11/16/2022 7:43 AM EDT Temperature 36.9 ??C (98.4 ??F) 11/16/2022 7:43 AM ED T Respiratory Rate 19 11/16/2022 7:43 AM EDT Oxygen Saturation 97% 11/16/2022 7:43 AM EDT Inhaled Oxygen Concentration - - Weight 75.5 kg (166 lb 7.2 oz) 11/15/2022 7:45 A M EDT Height 175.9 cm (5' 9.25 ) 11/15/2022 7:45 AM ED T Body Mass Index 24.4 11/15/2022 7:45 AM EDT Plan of Treatment Health Maintenance Due Date Last Done Comments Hepatitis C Screening 1954 Depression Screening 1966 Preventative Health Evaluation 1972 Colon Cancer Screening (Colonoscopy) 10/13/1999 Fall Risk Assessment 10/13/2019 COVID-19 Vaccine ( season) 2023 11/21/2020, 06/02/2020, 05/12/2020 Influenza Vaccine (#1) 2023 2, 12/15/2020, 11/12/2019, Additional history exists RSV Adult > 60+ Yrs or (1 - 1-dose 75+ series) 2029 DTap / Tdap / Td (3 - Td or Tdap) 05/21/2031 05/20/2021, 02/23/2010, 05/16/2001 Shingrix-Zoster Vaccine Completed 09/02/2020, 02/17 Pneumococcal Vaccine Completed 05/20/2021, 12/11/19 20 Hepatitis B Vaccines Aged Out No long er eligible based on patient's age to complete this topic RSV Ped < 20 months Aged Out No longe r eligible based on patient's age to complete this topic Medical Devices Implanted Type Area Assembler Handbags Device Identifier Shelf Expiration Date Model / Serial / Lot Knee Tib Insrt Cr-X3 [id number] Stry-Howm [id number] - [id number] Implanted:Qty: 1 on 11/15/2022 by Jose L Wood MD at [facility] Right: Knee [employer] [id number] 09/04/2023 [id number] / / [id number] Knee Fem Bsplt W Pa Stry-How [id number] - [id number] Implanted:Qty: 1 on 11/15/2022 by Jose L Wood MD at [facility] Right: Knee [employer] [id number] 07/24/2027 5517-F-[id number] / / [id number] Knee Bsplt Triathlon Ti Sz 6 Stry-Howm [id number] - [id number] Implanted:Qty: 1 on 11/15/2022 by Jose L Wood MD at [facility] Right: Knee [employer] [id number] 08/07/2027 5536-B-[id number] / / [id number] Advance Directives For more information, please contact: [phone] Latest Code Status on File Code Status Date Activated Date Inactivated Comments Full Code 11/15/2022 7:08 AM 11/16/2022 6:39 PM This code status was ascertained in the following way: discussion with patient . Code Status History Code Status Date Activated Date Inactivated Comments Full Code 11/15/2022 6:27 AM 11/15/2022 7:08 AM This code status was ascertained in the following way: discussion with patient . Full Code 10/25/2022 5:56 AM 10/25/2022 3:45 PM This code status was ascertained in the following way: discussion with patient . Care Teams Manager Location Relationship Specialty Start Date End Date Micheal Okeefe MD [address] [address] PCP - General Family Medicine 10/13/22
--- OUTSIDE RECORDS SUMMARY | 2024-05-21 11:45 | XMS_ITS ---
Author Name [facility] Organization Unknown History of Medication Use Medication Directions Dispensed Refills Start Date End Date Stat GaviLyte-G 236 gram-22.74 gram-6.74 gram-5.86 gram oral solution PLEASE SEE ATTACHED FOR DETAILED DIRECTIONS active amoxicillin 875 mg-potassium clavulanate 125 mg tablet TAKE 1 TABLET BY MOUTH EVERY 12 FOR 10 DAYS. TAKE PRESCRIBED WHILE NASAL PACKING IS IN PLACE. active pantoprazole 20 mg tablet,delayed release TAKE 2 TABLETS BY MOUTH EVERY DAY active lidocaine (PF) 10 mg/mL (1 %) injection solution Take 1 mL by injection route. 06/02/2022 01/07/2023 active ketoconazole 2 % shampoo USE 3 TIMES PER WEEK TO SCALP, LEAVE ON ON 5 MINS AND RINSE 06/02/2022 completed Kenalog 40 mg/mL suspension for injection Take 1 mL by injection route. 06/02/2022 01/07/2023 active benzonatate 100 mg capsule TAKE 1 CAPSULE BY MOUTH THREE TIMES A DAY 06/02/2022 completed Eliquis 2.5 mg tablet 01/07/2023 completed allopurinol 300 mg tablet TAKE 1 TABLET BY MOUTH EVERY DAY 06/02/2022 active Eliquis 5 mg tablet TAKE 1 TABLET BY MOUTH TWICE A DAY active imiquimod 5 % topical cream packet APPLY TO THE AFFECTED AREA TUESDAY-TUESDAY AT BEDTIME FOR 2 WEEKS 01/07/2023 active Problems Problem Status Onset Date Problem Type Date of Resoluti on Source Osteoarthritis of right knee joint active 2022-07-02 ProblemAct [facility] History of right total knee replacement active 2022-12-06 ProblemAct [facility] Laceration of lower leg active 2022-11-12 ProblemAct [facility] Encounters Encounter Type Encounter Reason Primary Diagnosis Location Date Ambulatory [facility] [place] 12/09/2023 Ambulatory [facility] [place] 11/17/2023 Ambulatory [facility] [place] 03/11/2023 Ambulatory [facility] [place] 12/28/2022 Ambulatory Encounter for other preprocedural examination [place] other [place] [facility] [place] Amb[place] Encounter for other preprocedural examination [place]counter [place] other [place] [facility] [place] [facility] [place] Care Team Organization Name Specialty Phone Email Start Date [place] [facility] [place] [facility] [place] [facility] [place] EDDIE RICHARDS Primary Care
--- OUTSIDE RECORDS SUMMARY | 2024-05-21 11:45 | XMS_ITS | Clinical Summary ---
Author Organization [facility] it Address [address] [place] [address] Care Team Providers Care Keno Terminal Operator Name Role Phone Micheal Okeefe MD Primary Care Provider [phone] Immunizations Name Administration Dates Next Due Pfizer SARS-CoV-2 COVID-19, mRNA, LNP-S, preservative free 11/21/2020,06/02/2020,05/12/2020 Surgical History Surgery Date Site/Laterality Comments COLONOSCOPY PROCEDURE:COLONOSCOPY NASAL SEPTUM SURGERY PROCEDURE:NASAL SEPTUM SURGERY;COMMENT:High school Medical History Medical History Date Comments Gout DX:Gout Hypertension DX:Hypertension Osteoarthritis DX:Osteoarthriti s Hyperlipidemia DX:Hyperlipidemi a Arrhythmia 11/2021 DX:Arrhythmia;CO MMENT:History of Afib/atrial flutter discovered incidentally during PCP visit November 2021. Asymptomatic. Was referred to cardiology at that time. T Parkinson's disease ([facility] V24, [facility] V28) DX:Parkinson's disease (HCC);COMMENT:RESTING TREMOR RIGHT HAND Pituitary adenoma ([facility] V 24, [facility] V28) DX:Pituitary adenoma (HCC);COMMENT:BEING MONITORED BY ENDOCRINOLOGY IN [place] Family History Medical History Relation Name Comments Diabetes Father Cancer Mother Diabetes Mother Relation Name Status Comments Father (Age 97) Natural Mother (Age 90) DM Social History Tobacco Use Types Packs/Day Years Used Date Smoking Tobacco: Never Smokeless Tobacco: Never Alcohol Use Standard Drinks/Week Comments Yes 0 (1 standard drink = 0.6 oz pur e alcohol) Sex and Gender Information Value Date Recorded Sex Assigned at Not on file Legal Sex Male 11:31 AM EST Gender Identity Not on file Sexual Orientation Not on file Obstetrics History Last Filed Vital Signs Vital Sign Reading Time Taken Comments Blood Pressure 124/83 09/30/2022 8:41 AM EDT Sitting Left arm Pulse 62 09/30/2022 8:41 AM EDT Temperature - - Respiratory Rate - - Oxygen Saturation - - Inhaled Oxygen Concentration - - Weight 75.3 kg (166 lb) 09/30/2022 8:41 AM EDT Height 176 cm (5' 9.29 ) 09/30/2022 8:4 1 AM EDT Body Mass Index 24.31 09/30/2022 8:41 AM EDT Plan of Treatment Health Maintenance Due Date Last Done Comments DTaP,Tdap,and Td Vaccines (1 - Tdap) 1973 Pneumococcal Vaccine: 50+ Years (1 of 1 - PCV) 2004 Zoster Vaccines (1 of 2) 2004 Abdominal Aortic Aneurysm (AAA) Screen 01/21/2022 Cholesterol Screening (Lipid Panel) 01/21/2022 Colorectal Cancer Screening: Colonoscopy 01/21/2022 Depression Screening 01/21/2022 Falls Risk Assessment 01/21/2022 Hepatitis C Screening 01/21/2022 Social Influencers of Health Screening 01/21/2022 COVID-19 Vaccine (4 - 2023-2 5 season) 2023 11/21/2020, 06/02/2020, 05/12/2020 Influenza Vaccine (Season Ended) 2024 RSV Immunization Adult Patients (1 - 1-dose 75+ series) 2029 HIB Vaccines Aged Out No longer eligi ble based on patient's age to complete this topic HPV Vaccines Aged Out No longer eligi ble based on patient's age to complete this topic Hepatitis A Vaccines Aged Out No long er eligible based on patient's age to complete this topic Hepatitis B Vaccines Aged Out No long er eligible based on patient's age to complete this topic IPV Vaccines Aged Out No longer eligi ble based on patient's age to complete this topic MMR Vaccines Aged Out No longer eligi ble based on patient's age to complete this topic Meningococcal ACWY Vaccine Aged Out N o longer eligible based on patient's age to complete this topic Meningococcal B Vaccine Aged Out No l onger eligible based on patient's age to complete this topic RSV Immunization Patients Under 20 months Aged Out No longer eligible b ased on patient's age to complete this topic Varicella Vaccines Aged Out No longer eligible based on patient's age to complete this topic Medical Devices Implanted Type Area Welder Fitter Arc Device Identifier Shelf Expiration Date Model / Serial / Lot Knee Tib Insrt Cr-X3 [id number] Stry-Howm [id number] Implanted:Qty: 1 on 11/15/2022 by Jose L Wood MD Right: Knee [employer] [id number] 09/04/2023 5530-G-611 / / [id number] Knee Fem Bsplt W Pa Stry-How [id number] Implanted:Qty: 1 on 11/15/2022 by Jose L Wood MD Right: Knee [employer] [id number] 07/24/2027 5517-F-502 / / SLPPU Knee Bsplt Triathlon Ti Sz 6 Stry-How [id number] Implanted:Qty: 1 on 11/15/2022 by Jose L Wood MD Right: Knee [employer] [id number] 08/07/2027 5536-B-600 / / [id number] Care Teams Keno Terminal Operator Relationship Specialty Start Date End Date Micheal Okeefe MD [address] [address] PCP - General 10/13/22
[2024-05-21 11:47] LABS: Anion Gap 13 (12-20); Blood Urea Nitrogen 20 mg/dL (9-16); Calcium 9.5 mg/dL (8.4-10.2); Carbon Dioxide 25 mmol/L (22-29); Chloride 107 mmol/L (96-108); Estimated Glomerular Filt Rate > 60; Glucose Random 81 mg/dL (60-115); Sodium 141 mmol/L (135-145)
[2024-05-21 11:57] LABS: Cortisol Random 6.3 ug/dL
[2024-05-21 12:07] LABS: Free T4 (Free Thyroxine) 0.88 ng/dL (0.71-1.85); Thyroid Stimulating Hormone 1.34 uIU/mL (0.32-4.0)
[2024-05-22 10:28] LABS: DHEA Sulfate 78 mcg/dL (20-217); Follicle Stimulating Hormone 4.6 mIU/mL (1.4-12.8); Lutenizing Hormone 2.6 mIU/mL (1.6-15.2)
[2024-05-25 05:08] LABS: Adrenocorticotropic Hormone 11 pg/mL (6-50)
[2024-05-26 11:53] LABS: Testosterone, Free 44.8 pg/mL (35.0-155.0); Testosterone, Total 371 ng/dL (250-1100)
[2024-05-28 19:28] LABS: IGF-1 (Somatomedin C) 96 ng/mL (41-279); IGF-1 Z Score (Male) -0.3 SD (-2.0 - +2.0)
== END 2024-05-21 10:20 | disposition home or self-care (01) ==
LOC: HO.LAB 10:19
PROVIDERS: PCP Family Medicine; Visit Provider Student in an Organized Health Care Education/Training Program
DX: D35.2 Benign neoplasm of pituitary gland (principal)
CPT/HCPCS: 36415; 80048; 82024; 82533; 82627; 83001; 83002; 84146; 84305; 84402; 84403; 84439; 84443

== ENCOUNTER 2024-06-12 10:14 | Outpatient (AMB) | payer BC, SELFPAY ==
[2024-06-12 10:16] VITALS: BP 110/66; PULSE 48; O2SAT 98; BMI 27.1
--- NOTE | 2024-06-12 10:16 | MHC.OFFVIS ---
Vital Signs 06/12/24 10:16 Height 5 ft 9.25 in Weight 185 lb 3.013 oz BMI 27.1 BP 110/66 Blood Pressure Location Lt brachial Position Sitting Pulse 48 L Pulse Source Pulse Oximeter Pulse Oximetry (%) 98 Oxygen Delivery Method Room Air Intake Visit Reasons: f/u pituitary adenoma Intake Note: Patient present today for pituitary adenoma office visit. 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 with Dr. Kamila Arzate in March 2023 , keerthi hormonal staining on pathology now coming in today for follow up. HPI Patient was apparently having some hyperprolactinemia in February 2022. I do not have records this prolactin level that was elevated. Subsequently underwent MRI of the brain in April 2022 when he was found to have a pituitary macroadenoma measuring 2.1 cm in the maximum dimension. The mass was extending suprasellar, and pushing on the optic chiasm was also slightly pushing on the frontal lobe. Patient denies any loss of vision. 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 On inital evaluation he denied He denies any nipple discharge. He denies any change in the size of hands or feet or symptoms of acromegaly. He denies any symptoms of hypothyroidism or hyperthyroidism. He denies any symptoms of adrenal insufficiency or Kianna syndrome. He denies any polyuria or polydipsia. Biochemical workup from August 2022 was unremarkable. He is status post trans-sphenoidal resection of the pituitary macroadenoma in March [address] Kamila Arzate at [facility]. 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 Stain negative before LH. Ki-67 index 0.1%. He subsequently had follow up in June 2023 and was asked to do repeat MRI 6 months which would be sometime in December 2023 with follow up with them after. Currentluy denies any lightheadness, dizziness , nausea or vomiting. No headaches. Overall feeling well. Bowel movements are regular. Weight is stable. Tremors are chronic mostky in right arm due to Parkinsons. On carbidopa 4 times a day . Follows with neurology. Is sexually active, no trouble with sexual function. No temperature intolerance. Had cardiac ablation for Afib this fall 2023, has followup with cards labs from May 2023 showed normal TSH of 1.3, free T4 1.09, total testosterone 567 ng/dL, free testosterone of 7.9 pg/mL, cortisol of 9.9 Eye: hasnt seen visual field evaluation at [facility] yet, yet to make an appointment Labs done 12/07/2023, showed critically low glucose of 54, his random cortisol level at that time at 10:00 was 7.5. He did not have any symptoms, asked him to repeat his labs which on 12/09/2023 showed blood glucose of 83, random cortisol of 4.9 with a ACTH of 9. Otherwise labs unremarkable for the rest of the pituitary panel. Interval history 02/14/24 Labs 12/09/2023 showed random cortisol of 4.9, with a ACTH of 9. Labs 01/04/2024 showed normal electrolytes, kidney function, renin greater than 1, normal pituitary panel with normal thyroid function, DHEA-S of 72, random cortisol of 8.7 and ACTH of 11 at 07:00. Cosyntropin stimulation testing 01/20/2024 showed baseline cortisol of 7.1, 30 minute cortisol of 25.7 and 60 minute cortisol 28.5. Has not had neurosurgery follow up yet still to schedule Eye appointment in Mar 2024 Interval history 06/12/2024 Labs 05/21/2024: Normal thyroid function, normal testosterone, FSH, LH, prolactin, IGF-1, cortisol of 6.3 however the labs were done at 10:45, acth 11, normal kidney function electrolytes He denies any dizziness, lightheadedness, nausea, vomiting today. Blood pressure is a little bit on the lower side today. Gained 5 lb since last visit in February. Neurosurgery appointment: has appt for MRI 06/13/24 and then is going to set up an appt with Dr. Arzate Eye appointment:Mar 2024: per patient visual mora were okay Physical exam General: sitting comfortably in no acute distress HEENT: normocephalic/atraumatic, gross visual mora intact, moist oral mucosa Neck: supple, symmetrical, no thyromegaly , no dorsocervical or supraclavicular fat pads Cardiac: normal heart sounds Pulm: normal breath sounds B/L, no added breath sounds Abd: not distended, no tenderness Extremities: no edema, no signs of myxedema Laboratory Tests 07/07/22 08/13/22 08/24/22 07:00 07:58 08:00 Creatinine 0.85 Estimated GFR > 60 Calcium 9.7 TSH 1.03 Free T4 0.97 Prolactin 6.1 Total Testosterone 464 Fr Testosterone Dialys 57.1 Somatomedin-C 105 Somato-C Z-Score Male -0.2 Random Cortisol 9.3 Cortisol Baseline 10.8 Cortisol 60 Minute 22.7 Urine Total Volume 1800 Ur 24 Hour Volume 1800 Ur Creatinine mg/dL 68.40 Ur Creatinine 24 Hour 1.24 Ur Free Cortisol 24 Hr 22.6 Laboratory Tests 12/07/23 12/09/23 10:09 10:06 Sodium 141 141 Potassium 3.3 4.1 D Creatinine 0.77 0.80 Random Glucose 54 L* 83 TSH 1.15 1.40 Free T4 0.94 0.80 Luteinizing Hormone 2.7 Prolactin 5.2 Total Testosterone 342 438 Fr Testosterone Dialys 35.2 66.6 Sex Hormone Bind Glob 48 Somatomedin-C 89 Somato-C Z-Score Male -0.4 Random Cortisol 7.5 4.9 ACTH 9 Laboratory Tests 12/09/23 01/04/24 01/20/24 10:06 07:43 07:44 Sodium 142 Potassium 4.3 Creatinine 0.83 Estimated GFR > 60 Random Glucose 91 Alpha Subunit Marker <0.1 Renin 1.77 Aldosterone 2 TSH 1.27 Free T4 0.86 FSH 4.2 Luteinizing Hormone 2.0 Prolactin 4.1 DHEA Sulfate 72 Somatomedin-C 48 Somato-C Z-Score Male -1.6 Random Cortisol 4.9 8.7 Cortisol Baseline 7.1 Cortisol 30 Minute 25.7 Cortisol 60 Minute 28.5 ACTH 9 11 Laboratory Tests 05/21/24 10:45 Sodium 141 Potassium 4.0 Creatinine 0.78 Estimated GFR > 60 Calcium 9.5 TSH 1.34 Free T4 0.88 FSH 4.6 Luteinizing Hormone 2.6 Prolactin 6.0 Total Testosterone 371 Fr Testosterone Dialys 44.8 DHEA Sulfate 78 Somatomedin-C 96 Random Cortisol 6.3 ACTH 11 PFSH Medical History Pituitary adenoma (~03/2023) Surgical History H/O cardiac radiofrequency ablation History of pituitary surgery Hx of colonoscopy Hx of knee surgery Family History Mother Diabetes mellitus, type II Father Carcinoma of prostate Social History Alcohol intake: current Alcohol intake frequency: a few times a week Patient Tobacco Use Status: Never used Tobacco Assessment & Plan Assessment & Plan (1) Pituitary adenoma: Onset Date: ~03/2023 Code(s): D35.2 - Benign neoplasm of pituitary gland Category: Medical Plan: 68-year-old male with a history of pituitary macroadenoma 2.1 cm, nonsecretory, abutting the optic chiasm, status post transsphenoidal resection at [facility] on 03/13/2023 . 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 Low Ki-67 index. He has done well postoperatively, labs done May 2023 showed normal thyroid hormone, cortisol and testosterone levels. He had a postoperative follow up head [facility] in June 2023, he has an appointment for MRI tomorrow 06/13/2024 and then he knows he has to make a follow up with his neurosurgeon. When he had his visual mora done in June 2022, he had a left atypical nieves nasal defect thought to be not due to his pituitary adenoma with no bitemporal hemianopsia. He had follow up appointment with his eye doctor at [facility] to follow up on his visual mora in Mar 2024. Per patient these were normal, I will obtain records. Labs done 12/07/2023, showed critically low glucose of 54, his random cortisol level at that time at 10:00 was 7.5. He did not have any symptoms, asked him to repeat his labs which on 12/09/2023 showed blood glucose of 83, random cortisol of 4.9 with a ACTH of 9. Labs 12/09/2023 showed random cortisol of 4.9, with a ACTH of 9. Labs 01/04/2024 showed normal electrolytes, kidney function, renin greater than 1, normal pituitary panel with normal thyroid function, DHEA-S of 72, random cortisol of 8.7 and ACTH of 11 at 07:00. Cosyntropin stimulation testing 01/20/2024 showed baseline cortisol of 7.1, 30 minute cortisol of 25.7 and 60 minute cortisol 28.5. Subsequently most recent labs from May 2023 are reassuring and unremarkable. He denies any dizziness, lightheadedness, nausea, vomiting today. Blood pressure is a little bit on the lower side, however he has gained weight of 5 lb since last seen.. we would plan to repeat labs in 1 year prior to his next follow up. Plan: -ordered pituitary panel to be done in 1 year prior to follow up -follow up in 1 year -counseled regarding symptoms of adrenal insufficiency -follow up with neurosurgery after repeat MRI -obtain records from [facility] Plan see above Orders: Orders Follicle Stimulating Hormone 1 Year D35.2 - Benign neoplasm of pituitary gland Lutenizing Hormone 1 Year D35.2 - Benign neoplasm of pituitary gland Testosterone, Free/Total 1 Year D35.2 - Benign neoplasm of pituitary gland Thyroid Stimulating Hormone 1 Year D35.2 - Benign neoplasm of pituitary gland Prolactin 1 Year D35.2 - Benign neoplasm of pituitary gland Cortisol Random 1 Year D35.2 - Benign neoplasm of pituitary gland Adrenocorticotropic Hormone 1 Year D35.2 - Benign neoplasm of pituitary gland Free T4 (Free Thyroxine) 1 Year D35.2 - Benign neoplasm of pituitary gland IGF-1 (Somatomedin C) 1 Year D35.2 - Benign neoplasm of pituitary gland Patient Instructions: All of your blood work looks good Please follow up with Dr. Arzate after your MRI, if something concerning comes up please call our office to let us know during office hours Otherwise do blood work a few weeks prior to your appointment in 1 year , orders are in Coding Level of Care Code Est Pt Level 3 (85480) Diagnoses Pituitary adenoma D35.2
--- OUTSIDE RECORDS SUMMARY | 2024-06-12 11:42 | XMS_ITS | Clinical Summary ---
Author Organization [facility] Address [address] [place] [address] Care Team Providers Care Air Press Operator Name Role Phone Micheal Okeefe MD Primary Care Provider [phone] Allergies No known active allergies Medications Medication [...] this topic Medical Devices Implanted Type Area Belt Brander Device Identifier Shelf Expiration Date Model / Serial / Lot Knee Tib Insrt Cr-X3 [id number] Stry-Howm [id number] - [id number] Implanted:Qty: 1 on 11/15/2022 by Jose L Wood MD at [facility] [place] and Med Right: Knee [employer] [id number] 09/04/2023 5530-G-611 / / [id number] Knee Fem Bsplt W Pa Stry-How [id number] - [id number] Implanted:Qty: 1 on 11/15/2022 by Jose L Wood MD at [facility] [place] and Med Right: Knee [employer] [id number] 07/24/2027 5517-F-502 / / SLPPU Knee Bsplt Triathlon Ti Sz 6 Stry-Howm [id number] - [id number] Implanted:Qty: 1 on 11/15/2022 by Jose L Wood MD at [facility] [place] and Med Right: Knee [employer] [id number] 08/07/2027 5536-B-600 / / [id number] Advance Directives For more information, please contact: [phone] Latest Code Status on File Code Status [...] way: discussion with patient . Care Teams Air Press Operator Relationship Specialty Start Date End Date Micheal Okeefe MD [address] [address] PCP - General Family Medicine 10/13/22
--- OUTSIDE RECORDS SUMMARY | 2024-06-12 11:42 | XMS_ITS | Data Portability ---
Author Organization [facility], Main Office Address [address] [place] [address] Care Team Providers Care Railway Patrol Officer Name Role Phone MICHEAL RICHARDS Primary Care Provider REE HENSLEY Orthopedic Surgeon MAX VALDES Coating Mixer SUMANTH ESCOBAR Neurologist [facility] Wine And Spirits Clerk ISAI BONILLA Door Worker Assessment No assessment recorded. Plan of Treatment Reminders Order Date Submit Date Provider Last Modified By Organization Details Last Modified Time Details Appointments PE EST 2024 01:00P M Micheal Richards MD Not available Not available Not available Lab uric acid, serum or plasma 2023 024 AMILCAR [facility], [address], [place], [address], 08/18/2023 08:09:08 CBC w/ auto diff 2023 024 AMILCAR [facility], [address], [address] [address], [place], [address], 08/18/2023 08:09:06 CMP, serum or plasma 2023 024 AMILCAR [facility] (Centralized Electronic Ordering - All Locations), Patient Can Go To The Location Of Their Choice, [id number] 08/18/2023 08:09:04 PSA, serum or plasma - Screen ing 2023 024 AMILCAR [facility], [address], [address], [place], [address], 08/18/2023 08:09:08 magnes ium, serum or plasma 2023 024 AMILCAR [facility], [address], [address], [place], [address], 08/18/2023 08:09:09 lipid panel, serum 2023 024 [email or web address] [facility], [address], [address], [place], [address], 07/18/2023 09:00:36 Referral physic al therap ist referr mariah - Edyta Tabares 2023 024 [email or web address], [address] [place] [address], [address], [facility] [address], 01/04/2024 09:37:07 physic al therap ist referr al - At risk for fallin g 2023 024 [email or web address] Not available 07/08/2023 10:52:24 sleep medici ne referr al - stop bang 4 with afib. 2023 024 [facility], [address] [place], [address], 08/18/2023 11:00:57 physic al therap ist referr al - Neurol ogic [place] corrina Lynch [facility] 2022 023 [email or web address] Not available 05/30/2023 09:04:38 Procedures None record ed. Surgeries None record ed. Imaging US, abdome n + pelvis 2023 024 [email or web address] [facility], [address] [place], [address], 10/14/2023 11:42:21 Medication Orders None record ed. Patient TargetsNo targets recorded. Patient Instructions Encounter Date Encounter Id Patient Instructions Last Modified By Organization Details Last Modified Time 03/18/2023 [id number] During [facility] f/u call, all current and discharge medications (OTC, herbal therapies, supplements) reviewed and reconciled with patient, including potential side effects, drug interactions, instructions, and the consequences of not taking medication. Reviewed potential barriers to medication adherence, such as side effects from medication or cost of medication. sanaz Not available 03/18/2023 10:11:13 07/08/2023 [id number] Prostate Cancer Screening frank Not available 07/08/2023 10:00:10 well visit, over 65: care instructions frank Not available 07/08/2023 10:00:10 preventing falls : care instructions frank Not available 07/08/2023 10:00:11 well visit, over 65: care instructions frank Not available 07/08/2023 10:00:10 medical record request* [email or web address] Not available 07/18/2023 08:59:16 01/13/2024 [id number] parkinson's dise ase: care instructions frank Not available 01/13/2024 09:49:13 electrical cardioversion: before your procedure frank Not available 01/13/2024 09:49:13 Electrophysiolog y (EP) Study: Before Your Procedure frank Not available 01/13/2024 09:49:13 high blood press ure: care instructions frank Not available 01/13/2024 09:49:13 learning about h igh blood pressure frank Not available 01/13/2024 09:49:13 Reason for Referral Physical Therapist Referral for Parkinson's disease [facility] [phone] Referring Physician: Family Brenda Medicine, Encounter Date: 11/30/2022 Sleep Medicine Referral for Snoring stop bang 4 with afib. Referring Physician: Family Peng Gutierrez, Encounter Date: 07/08/2023 Physical Therapist Referral for Adult health examination At risk for falling Referring Physician: Family Peng Gutierrez, Encounter Date: 07/08/2023 Physical Therapist Referral for Parkinson's disease Karolina Tabares Referring Physician: Family Brenda Medicine, Encounter Date: 07/08/2023 Results Created Date Observation Date Name Description Value Unit Range Abnormal Flag Note LastModifiedBy Organization Detail LastModifiedTime 09/01/1908/31/2022 CA19- 9 Ca19-9 7 U/mL (0-35) Ivory Elect ivory milum inesc ence Immun oassa y (ECLI A). Value s obtai jerri with diffe rent assay metho ds or kits canno t be used inter dee eacorriney . Resul ts canno t be inter prete d as absol [place] evide nce of the prese nce or absen ce [facility] . Not Available [facility] (Centralized Electronic Ordering - All Locations) Patient Can Go To The Location Of Their Choice, 08/31/2022 17:51:44 09/01/1908/31/2022 CEA MONOC LONAL cea monoclonal 1.7 NG/mL [...] antib odies . Call Lab at EXT [id number] . Not Available [facility] (Centralized Electronic Ordering - All Locations) Patient Can Go To The Location Of Their Choice, 08/31/2022 17:51:46 09/01/1909/01/2022 SERUM ELECT ROPHO RESIS total protein 6.4 gm/dL (6.2-8 .2) Not Available [facility] (Centralized Electronic Ordering - All Locations) Patient Can Go To The Location Of Their Choice, 09/09/2022 10:56:27 09/01/1909/09/2022 SERUM ELECT ROPHO RESIS albumin 3.7 gm/dL (3.1-4 .8) Not Available [facility] (Centralized Electronic Ordering - All Locations) Patient Can Go To The Location Of Their Choice, 09/09/2022 10:56:27 09/01/1909/09/2022 SERUM ELECT ROPHO RESIS alpha 1 0.2 gm/dL (0.2-0 .4) Not Available [facility] (Centralized Electronic Ordering - All Locations) Patient Can Go To The Location Of Their Choice, 09/09/2022 10:56:27 09/01/1909/09/2022 SERUM ELECT ROPHO RESIS alpha 2 0.8 gm/dL (0.6-0 .9) Not Available [facility] (Centralized Electronic Ordering - All Locations) Patient Can Go To The Location Of Their Choice, 09/09/2022 10:56:27 09/01/1909/09/2022 SERUM ELECT ROPHO RESIS beta 1.0 gm/dL (0.9-1 .3) Not Available [facility] (Centralized Electronic Ordering - All Locations) Patient Can Go To The Location Of Their Choice, 09/09/2022 10:56:27 09/01/1909/09/2022 SERUM ELECT ROPHO RESIS gamma 0.7 gm/dL (0.6-1 .8) Not Available [facility] (Centralized Electronic Ordering - All Locations) Patient Can Go To The Location Of Their Choice, 09/09/2022 10:56:27 09/01/1909/09/2022 SERUM ELECT ROPHO RESIS beta, restricted band Not Applic able Not Available [facility] (Centralized Electronic Ordering - All Locations) Patient Can Go To The Location Of Their Choice, 09/09/2022 10:56:27 09/01/1909/09/2022 SERUM ELECT ROPHO RESIS beta, second restricted band Not Applic able gm/dL Not Available [facility] (Centralized Electronic Ordering - All Locations) Patient Can Go To The Location Of Their Choice, 09/09/2022 10:56:27 09/01/1909/09/2022 SERUM ELECT ROPHO RESIS gamma, restricted band Not Applic able gm/dL Not Available [facility] (Centralized Electronic Ordering - All Locations) Patient Can Go To The Location Of Their Choice, 09/09/2022 10:56:27 09/01/1909/09/2022 SERUM ELECT ROPHO RESIS gamma, second restricted band Not Applic able gm/dL Not Available [facility] (Centralized Electronic Ordering - All Locations) Patient Can Go To The Location Of Their Choice, [id number] 09/09/2022 10:56:27 09/01/1909/09/2022 SERUM ELECT ROPHO RESIS spe interpretati on Lin l high resol ution serum prote in elect ropho resis guerline rn. No appar ent monoc lonal prote in ident ified . Inter jim d by Hieu irene MD Not Available [facility] (Centralized Electronic Ordering - All Locations) Patient Can Go To The Location Of Their Choice, [id number] 09/09/2022 10:56:27 09/16/1909/15/2022 fecal occul t blood , immun oassa y, stool RESULT negati ve Not Available In-Office Order Internal Use Only DO Not Attach Compendium DO Not Attach Compendium, Do Not Delete/merge, [id number] 08/31/2022 09:51:56 08/17/19 24 08/18/2023 CMP14 (REFL EX HGB A1C) glucose 90 mg/dL 70-99 Not Available [facility] ([facility]) [address] [place], [address], 08/18/2023 08:09:04 08/17/1908/18/2023 CMP14 (REFL EX HGB A1C) BUN 12 mg/dL 8-27 Not Available [facility] ([facility]) [address] [place], [address], 08/18/2023 08:09:04 08/17/1908/18/2023 CMP14 (REFL EX HGB A1C) creatinine 0.76 mg/dL 0.76-1 .27 Not Available [facility] ([facility]) [address] [place], [address], 08/18/2023 08:09:04 08/17/19 24 08/18/2023 CMP14 (REFL EX HGB A1C) eGFR 98 mL/mi n/1.7 3 >59 Not Available [facility] ([facility]) [address] [place], [address], 08/18/2023 08:09:04 08/17/19 24 08/18/2023 CMP14 (REFL EX HGB A1C) BUN/creatini ne ratio 16 10-24 Not Available [facility] ([facility] [address] [place], [address], 08/18/2023 08:09:04 08/17/19 24 08/18/2023 CMP14 (REFL EX HGB A1C) sodium 138 mmol/ L 134-14 4 Not Available [facility] ([facility] [address] [place], [address], 08/18/2023 08:09:04 08/17/19 24 08/18/2023 CMP14 (REFL EX HGB A1C) potassium 4.2 mmol/ L 3.5-5. 2 Not Available [facility] ([facility]) [address] [place], [address], 08/18/2023 08:09:04 08/17/19 24 08/18/2023 CMP14 (REFL EX HGB A1C) chloride 103 mmol/ L 96-106 Not Available [facility] ([facility]) [address] [place], [address], 08/18/2023 08:09:04 08/17/19 24 08/18/2023 CMP14 (REFL EX HGB A1C) carbon dioxide, total 21 mmol/ L 20-29 Not Available [facility] ([facility]) [address] [place], [address], 08/18/2023 08:09:04 08/17/19 24 08/18/2023 CMP14 (REFL EX HGB A1C) calcium 9.5 mg/dL 8.6-10 .2 Not Available [facility] ([facility] [address] [place], [address], 08/18/2023 08:09:04 08/17/19 24 08/18/2023 CMP14 (REFL EX HGB A1C) protein, total 6.6 g/dL 6.0-8. 5 Not Available [facility] ([facility] [address] [place], [address], 08/18/2023 08:09:04 08/17/19 24 08/18/2023 CMP14 (REFL EX HGB A1C) albumin 4.6 g/dL 3.9-4. 9 Not Available [facility] ([facility] [address] [place], [address], 08/18/2023 08:09:04 08/17/19 24 08/18/2023 CMP14 (REFL EX HGB A1C) globulin, total 2.0 g/dL 1.5-4. 5 Not Available [facility] ([facility] [address] [place], [address], 08/18/2023 08:09:04 08/17/19 24 08/18/2023 CMP14 (REFL EX HGB A1C) bilirubin, total 0.8 mg/dL 0.0-1. 2 Not Available [facility] ([facility] [address] [place], [address], 08/18/2023 08:09:04 08/17/19 24 08/18/2023 CMP14 (REFL EX HGB A1C) alkaline phosphatase 70 IU/L 44-121 Not Available [facility] [address] [place], [address], 08/18/2023 08:09:04 08/17/19 24 08/18/2023 CMP14 (REFL EX HGB A1C) AST (SGOT) 17 IU/L 0-40 Not Available [facility] ([facility] [address] [place], [address], 08/18/2023 08:09:04 08/17/19 24 08/18/2023 CMP14 (REFL EX HGB A1C) ALT (SGPT) 17 IU/L 0-44 Not Available [facility] ([facility]) [address] [facility], [place], [address], 08/18/2023 08:09:04 08/17/19 24 08/17/2023 CBC WITH DIFFE RENTI AL/PL ATELE T WBC 5.7 x10e3 /uL 3.4-10 .8 Not Available [facility] ([facility]) [address] [facility], [place], [address], 08/18/2023 08:09:06 08/17/19 24 08/17/2023 CBC WITH DIFFE RENTI AL/PL ATELE T RBC 4.93 x10e6 /uL 4.14-5 .80 Not Available [facility] ([facility]) [address] [facility], [place], [address], 08/18/2023 08:09:06 08/17/19 24 08/17/2023 CBC WITH DIFFE RENTI AL/PL ATELE T hemoglobin 15.4 g/dL 13.0-1 7.7 Not Available [facility] ([facility]) [address] [facility], [place], [address], 08/18/2023 08:09:06 08/17/19 24 08/17/2023 CBC WITH DIFFE RENTI AL/PL ATELE T hematocrit 46.5 % 37.5-5 1.0 Not Available [facility] ([facility]) [address] [facility], [place], [address], 08/18/2023 08:09:06 08/17/19 24 08/17/2023 CBC WITH DIFFE RENTI AL/PL ATELE T MCV 94 fL 79-97 Not Available [facility] ([facility]) [address] [facility], [place], [address], 08/18/2023 08:09:06 08/17/19 24 08/17/2023 CBC WITH DIFFE RENTI AL/PL ATELE T MCH 31.2 pg 26.6-3 3.0 Not Available [facility] ([facility] [address] [facility], [place], [address], 08/18/2023 08:09:06 08/17/19 24 08/17/2023 CBC WITH DIFFE RENTI AL/PL ATELE T MCHC 33.1 g/dL 31.5-3 5.7 Not Available [facility] ([facility] [address] [facility], [place], [address], 08/18/2023 08:09:06 08/17/19 24 08/17/2023 CBC WITH DIFFE RENTI AL/PL ATELE T RDW 12.9 % 11.6-1 5.4 Not Available [facility] ([facility] [address] [facility], [place], [address], 08/18/2023 08:09:06 08/17/19 24 08/17/2023 CBC WITH DIFFE RENTI AL/PL ATELE T platelets 237 x10e3 /uL 150-45 0 Not Available [facility] ([facility] [address] [facility], [place], [address], 08/18/2023 08:09:06 08/17/19 24 08/17/2023 CBC WITH DIFFE RENTI AL/PL ATELE T neutrophils 56 % not estab. Not Available [facility] ([facility] [address] [place], [address], 08/18/2023 08:09:06 08/17/19 24 08/17/2023 CBC WITH DIFFE RENTI AL/PL ATELE T lymphs 32 % not estab. Not Available [facility] ([facility] [address] [place], [address], 08/18/2023 08:09:06 08/17/19 24 08/17/2023 CBC WITH DIFFE RENTI AL/PL ATELE T monocytes 9 % not estab. Not Available [facility] ([facility] [address] [place], [address], 08/18/2023 08:09:06 08/17/19 24 08/17/2023 CBC WITH DIFFE RENTI AL/PL ATELE T eos 2 % not estab. Not Available [facility] ([facility] [address] [facility], [place], [address], 08/18/2023 08:09:06 08/17/19 24 08/17/2023 CBC WITH DIFFE RENTI AL/PL ATELE T basos 0 % not estab. Not Available [facility] ([facility] [address] [facility], [place], [address], 08/18/2023 08:09:06 08/17/19 24 08/17/2023 CBC WITH DIFFE RENTI AL/PL ATELE T immature cells UPPER CUTTER MACHINE Not Available [facility] ([facility] [address] [place], [address], 08/18/2023 08:09:06 08/17/19 24 08/17/2023 CBC WITH DIFFE RENTI AL/PL ATELE T neutrophils (absolute) 3.2 x10e3 /uL 1.4-7. 0 Not Available [facility] ([facility] [address] [place], [address], 08/18/2023 08:09:06 08/17/19 24 08/17/2023 CBC WITH DIFFE RENTI AL/PL ATELE T lymphs (absolute) 1.8 x10e3 /uL 0.7-3. 1 Not Available [facility] ([facility]) [address] [place], [address], 08/18/2023 08:09:06 08/17/19 24 08/17/2023 CBC WITH DIFFE RENTI AL/PL ATELE T monocytes(ab solute) 0.5 x10e3 /uL 0.1-0. 9 Not Available [facility] ([facility]) [address] [place], [address], 08/18/2023 08:09:06 08/17/19 24 08/17/2023 CBC WITH DIFFE RENTI AL/PL ATELE T eos (absolute) 0.1 x10e3 /uL 0.0-0. 4 Not Available [facility] ([facility]) [address] [facility], [place], [address], 08/18/2023 08:09:06 08/17/19 24 08/17/2023 CBC WITH DIFFE RENTI AL/PL ATELE T baso (absolute) 0.0 x10e3 /uL 0.0-0. 2 Not Available [facility] ([facility]) [address] [facility], [place], [address], 08/18/2023 08:09:06 08/17/19 24 08/17/2023 CBC WITH DIFFE RENTI AL/PL ATELE T immature granulocytes 1 % not estab. Not Available [facility] ([facility]) [address] [facility], [place], [address], 08/18/2023 08:09:06 08/17/19 24 08/17/2023 CBC WITH DIFFE RENTI AL/PL ATELE T immature grans (abs) 0.0 x10e3 /uL 0.0-0. 1 Not Available [facility] ([facility]) [address] [facility], [place], [address], 08/18/2023 08:09:06 08/17/19 24 08/17/2023 CBC WITH DIFFE RENTI AL/PL ATELE T NRBC UPPER CUTTER MACHINE Not Available [facility] ([facility]) [address] [facility], [place], [address], 08/18/2023 08:09:06 08/17/19 24 08/17/2023 CBC WITH DIFFE RENTI AL/PL ATELE T hematology comments: UPPER CUTTER MACHINE Not Available [facility] [address] [facility], [place], [address], 08/18/2023 08:09:06 08/17/19 24 08/18/2023 LIPID PANEL cholesterol, total 158 mg/dL 100-19 9 Not Available [facility] ([facility]) [address] [facility] [place], [address], 08/18/2023 08:09:07 08/17/19 24 08/18/2023 LIPID PANEL triglyceride s 63 mg/dL 0-149 Not Available [facility] [address] [facility] [place], [address], 08/18/2023 08:09:07 08/17/19 24 08/18/2023 LIPID PANEL HDL cholesterol 68 mg/dL >39 Not Available [facility] [address] [facility] [place], [address], 08/18/2023 08:09:07 08/17/19 24 08/18/2023 LIPID PANEL VLDL cholesterol reynold 13 mg/dL 5-40 Not Available [facility] [address] [facility] [place], [address], 08/18/2023 08:09:07 08/17/19 24 08/18/2023 LIPID PANEL LDL chol calc ([facility]) 77 mg/dL 0-99 Not Available [facility] [address] [facility] [place], [address], 08/18/2023 08:09:07 08/17/19 24 08/18/2023 LIPID PANEL LDL calc comment: UPPER CUTTER MACHINE Not Available [facility] [address] [facility] [place], [address], 08/18/2023 08:09:07 08/17/19 24 08/17/2023 PSA TOTAL (REFL EX TO FREE) reflex criteria Commen t The perce nt free PSA is perfo rmed on a refle x basis only when the total PSA is betwe en 4.0 and 10.0 ng/mL . Not Available [facility] ([facility]) [address] [facility], [place], [address], 08/18/2023 08:09:07 08/17/19 24 08/18/2023 PSA TOTAL [...] or kits canno t be used inter luiz diehl . Resul ts canno t be inter prete d as absol [place] evide nce of the prese nce or absen ce of malorie morataya se. Not Available [facility] ([facility]) [address] [facility], [place], [address], 08/18/2023 08:09:07 08/17/19 24 08/18/2023 URIC ACID uric acid 4.1 mg/dL 3.8-8. 4 Thera mauro acharya t for gout patie nts: <6.0 Not Available [facility] ([facility]) [address] [facility], [place], [address], 08/18/2023 08:09:08 08/17/19 24 08/18/2023 MAGNE SIUM magnesium 1.8 mg/dL 1.6-2. 3 Not Available [facility] ([facility]) [address] [facility], [place], [address], 08/18/2023 08:09:09 01/04/20 24 01/04/2024 BMP, serum or plasm a sodium 142 Not Available [facility] ([facility] Ordering - All Locations) Patient Can Go To The Location Of Their Choice, [address] 01/05/2024 11:12:52 01/04/20 24 01/04/2024 BMP, serum or plasm a potassium 4.3 Not Available [facility] ([facility] Ordering - All Locations) Patient Can Go To The Location Of Their Choice, [address] 01/05/2024 11:12:52 01/04/20 24 01/04/2024 BMP, serum or plasm a BUN 19 Not Available [facility] ([facility] Ordering - All Locations) Patient Can Go To The Location Of Their Choice, [address] 01/05/2024 11:12:52 01/04/20 24 01/04/2024 BMP, serum or plasm a creatinine 0.83 Not Available [facility] ([facility] Ordering - All Locations) Patient Can Go To The Location Of Their Choice, [address] 01/05/2024 11:12:52 01/04/20 24 01/04/2024 BMP, serum or plasm a glucose 91 Not Available [facility] ([facility] Ordering - All Locations) Patient Can Go To The Location Of Their Choice, [address] 01/05/2024 11:12:52 05/22/19 25 05/21/2024 BMP, serum or plasm a glucose 81 Not Available [facility] (Medical Records) [address] [place] [address], [address], 05/22/2024 11:22:26 05/22/19 25 05/21/2024 BMP, serum or plasm a BUN 20 Not Available [facility] (Medical Records) [address] [place] [address], [address], 05/22/2024 11:22:26 05/22/19 25 05/21/2024 BMP, serum or plasm a creatinine 0.78 Not Available [facility] (Medical Records) [address] [place] [address], [address], 05/22/2024 11:22:26 05/22/19 25 05/21/2024 BMP, serum or plasm a sodium 141 Not Available [facility] (Medical Records) [address] [place] [address], [address], 05/22/2024 11:22:26 05/22/19 25 05/21/2024 BMP, serum or plasm a potassium 4.0 Not Available [facility] (Medical Records) [address] [facility], [place], [address], 05/22/2024 11:22:26 02/16/19 25 02/16/2024 elect meena diogr am No observ ation record ed. [email or web address] [address] [place], [address], 02/17/2024 07:39:09 Result Notes None recorded. Problems Name Problem SNOMED Code Status Onset Date Resolution Date Notes Provider Name and Address Organization Details Recorded Time Gout 42061622 Active 2021 ANGELA Wilcox [facility] 3 10:21:41 Essential hypertens ion 07119530 Active ANGELA Wilcox, [facility] 3 10:21:41 Hyperlipi demia 19259982 Active ANGELA Wilcox, [facility] 3 10:21:41 Erectile dysfuncti on 122079815 Active ANGELA Wilcox [facility] 3 10:21:41 Gastroeso phageal reflux disease without esophagit is 054128968 Active ANGELA Wilcox, [facility] 3 10:21:41 Diverticu losis of colon 331874853 Completed 08/31/2022 Micheal Richards MD [address] [facility] [address] [address], [facility] 3 07:31:42 Osteoarth ritis 925034540 Active 2021 Knee right side. 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 ANGELA Wilcox, [facility] 3 10:21:41 History of diverticu litis 043132163445 100 Active 2022 ANGELA iWlcox, [facility] 3 10:21:41 Unintenti onal weight loss 628549121 Completed 202201/13/2024 Micheal Richards MD [address], [place], [address], [facility] 4 09:48:28 Neoplasm of pituitary gland 506467973 Active 2023 ANGELA Woods, [facility] 4 09:28:16 History of respirato ry disease 268422150 Active 2023 ANGELA Woods, [facility] 4 09:28:16 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 Procedures Surgical History Date Name Laterality Status Provider Name and Address Organization Details Recorded Time 07/07/19 24 Colonoscopy completed Mel gaytan MA [facility] 07/08/2023 09:43:54 03/15/19 24 hypophysectomy completed Shakira Lo RN [facility] 03/18/2023 09:57:44 11/16/19 23 total knee replacement completed Joana Mejia [facility] 11/17/2022 13:17:56 09/16/19 23 FOBT completed Lissette Alonso MA [facility] 09/15/2022 16:55:12 02/07/18 72 procedure on nasal septum completed Raul Avalos MA [facility] 05/26/2022 09:29:00 repair of meniscus completed Mel gaytan MA [facility] 05/20/2021 09:13:25 Imaging Results Imaging Date Name Status LastModified by Organization Details LastModified Time 02/16/2024 [facility] [address], [place], [address], 02/17/2024 07:39:09 Procedure Notes None recorded. Medical Equipment None Reported. Allergies Allergen ID Allergen Name Allergen Category Reaction Reaction Severity Criticality Documentation Date Start Date Code Code System Note Provider Name and Address Organization Details Recorded Time 83128 hydrochlo rothiazid e medicatio n Not available Not available Not available 01/13/20242008 5487 RxNorm ANGELA Woods, [facility] 4 09:28:02 Medications Name Sig Start [...] TAKE 1 TABLET BY MOUTH EVERY DAY 2024 active Not Available Not Available Not Avai lable carbidopa 25 mg-levodo pa 100 mg tablet 1 {tbl} 4 times a day by oral route. active Not Available Not Available No t Available lisinopri l 40 mg tablet TAKE 1 TABLET BY MOUTH EVERY DAY 2024 active Not Available Not Available Not Avai lable atenolol 50 mg tablet TAKE 1 TABLET [...] Updated DateTime 3 175.9 cm 25.8 kg/m2 24533.2 6 g 56 /min 98 % 98 % 97.8 [degF] 134 mm[Hg] 80 mm[Hg] Mel padron MA [facility] 3 10:33:09 Date Recorded Body height Body mass index (BMI) Body weight Heart rate Oxygen saturation Oxygen saturation in Arterial blood by Pulse oximetry Body temperature Systolic blood pressure Diastolic blood pressure Provider Name and Address Organization Details Last Updated DateTime 4 175.9 cm 25.2 kg/m2 75189.8 9 g 54 /min 98 % 98 % 98.1 [degF] 136 mm[Hg] 82 mm[Hg] Mel padron MA [facility] 4 09:40:15 Date Recorded Body height Body mass index (BMI) Body weight Oxygen saturation Oxygen saturation in Arterial blood by Pulse oximetry Heart rate Body temperature Systolic blood pressure Diastolic blood pressure Provider Name and Address Organization Details Last Updated DateTime 4 175.9 cm 25.9 kg/m2 18861.0 6 g 100 % 100 % 57 /min 97.6 [degF] 123 mm[Hg] 76 mm[Hg] Lana Martinez MA [facility] 4 09:36:21 Social History Question Answer Notes LastModified by Organizat ion Details LastModified Time Tobacco Smoking Status Never Smoker ANGELA Mcdaniel [facility] 05/20/2021 09:58:48 What Is Your Level Of Alcohol Consumption? Occasional 2-3 X Week Information not available 05/20/2021 Are You Currently Employed? Yes Information not available 05/20/2021 What Type Of Diet Are You Following? 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[employer] Information not available 05/20/2021 Do [...] influenza, unspecified formulation 9 completed Not Available [facility] 03/17/2023 15:46:01 COVID-19, mRNA, LNP-S, PF, 30 mcg/0.3 mL dose 1 completed Not Available [facility] 03/17/2023 15:46:01 Influenza, recombinant, quadrivalent, PF 0 completed Not Available [facility] 03/17/2023 15:46:01 Influenza, split virus, trivalent, preservative 2 completed Not Available [facility] 03/17/2023 15:46:02 influenza, unspecified formulation 7 completed Not Available [facility] 03/17/2023 15:46:01 influenza, unspecified formulation 0 completed Not Available [facility] 03/17/2023 15:46:01 Influenza, split virus, quadrivalent, preservative 6 completed Not Available [facility] 03/17/2023 15:46:01 Influenza, split virus, quadrivalent, preservative 5 completed Not Available [facility] 03/17/2023 15:46:01 COVID-19, mRNA, LNP-S, PF, 30 mcg/0.3 mL dose 1 completed Not Available [facility] 03/17/2023 15:46:01 zoster live 6 completed Not Available [facility] 03/17/2023 15:46:02 Influenza, split virus, quadrivalent, preservative 8 completed Not Available [facility] 03/17/2023 15:46:01 influenza, unspecified formulation 3 completed Not Available [facility] 03/17/2023 15:46:01 COVID-19, mRNA, LNP-S, PF, 30 mcg/0.3 mL dose 1 completed Not Available [facility] 03/17/2023 15:46:01 influenza, unspecified formulation 8 completed Not Available [facility] 03/17/2023 15:46:02 Pneumococcal conjugate PCV 13 0 completed Not Available [facility] 03/17/2023 15:46:02 Tdap 1 completed Not Available [facility] 03/17/2023 15:46:02 Influenza, MDCK, quadrivalent, PF 9 completed Not Available [facility] 03/17/2023 15:46:01 influenza, unspecified formulation 3 completed Not Available [facility] 03/17/2023 15:46:01 influenza, unspecified formulation 7 completed Not Available [facility] 03/17/2023 15:46:01 Influenza, high-dose, quadrivalent, PF 1 completed Not Available [facility] 03/17/2023 15:46:01 zoster recombinant 1 completed Not Available [facility] 03/17/2023 15:46:01 Novel Qjxqlaxai-[id number], all formulations 0 completed Not Available [facility] 03/17/2023 15:46:02 zoster recombinant 1 completed Not Available [facility] 03/17/2023 15:46:01 pneumococcal polysaccharide PPV23 2 completed Not Available [facility] 03/17/2023 15:46:01 Influenza, high-dose, quadrivalent, PF 2 completed Not Available [facility] 03/17/2023 15:46:01 Tdap 2 completed Not Available [facility] 03/17/2023 15:46:02 RSV, recombinant, protein subunit RSVpreF, adjuvant reconstituted, 0.5 mL, PF 4 completed Joana mathur, [facility] 09/01/2023 09:29:25 Pneumococcal conjugate PCV20, polysaccharide GON577 conjugate, adjuvant, PF 4 completed Joana mathur, [facility] 09/01/2023 09:31:04 Influenza, high-dose, trivalent, PF 4 completed Joana mathur, [facility] 12/05/2023 08:29:50 Influenza, high-dose, quadrivalent, PF 3 completed Micheal Richards MD [address], [address], [facility] 12/07/2022 12:15:46 Past Encounters Encounter ID Performer Location Encounter Start Date Encounter Closed Date Diagnosis/Indication Diagnosis SNOMED-CT Code Diagnosis ICD10 Code Diagnosis Note [id number] Micheal Richards MD Main Office [address] [place] [address] 05/20/2021 08:49:33 05/20/2021 10:11:04 Adult health examination 691154154 Z00.00 Patient was counseled on healthy diet, exercise and nutrition due to Body mass index is 28 kg/m? ? ?. Last PSADate:Re sult:Plan: will test has fhx. [...] Medication reconciled . Advance directives discussed. Fatigue 68774412 R53.83 Hyperlipidemia 84607693 E78.5 Gout 10561788 M10.9 Hepatitis C screening 41 4568667 Z11.59 Nocturia 683604808 R35.1 Anxiety state 541158143 F41.1 Mindful exercise discussed. Wants to hold from medication at this time.If it gets worse he will let me know. Administra tion of pneumococcal vaccine 58169620 Z23 Administra tion of viral vaccine 18315450 Z23 Essential hypertension 87201180 I10 [id number] Micheal Richards MD Main Office [address] [facility] [address] [place] [address] 11/20/2021 08:43:24 11/20/2021 09:49:59 Essential hypertension 13787606 I10 Blood pressure relatively stable for now we will keep on his current regimen. Gout 26188495 M10.9 stable Atrial flutter 5013066 I 48.92 New onset atrial flutter.No history of sleep apnea. He is asymptomat ic the rate is controlled with atenolol. I reviewed the EKG with cardiologi st at [facility] Dr. Barron who agrees with the plan to anticoagul ate him. I will start him on Eliquis 5 mg twice daily as his last renal function was okay. Bleeding precaution s were discussed. His ZHN4AK7-GC Sc 2 score is 2 and his has bled score is 2.I have also ordered an echo and for him to be seen outpatient by cardiologi st.Continu e atenolol, advised him to limit his caffeine intake and also to limit his alcohol consumptio n. Screening for malignant neoplasm of colon 803131949 Z12.11 Anxiety state 062663532 F41.1 Mindful exercise discussed. Wants to hold from medication at this time.If it gets worse he will let me know. [id number] Micheal Richards MD Main Office [address] [facility] [address] [place] [address] 12/15/2021 13:30:02 12/15/2021 14:52:40 Atrial flutter 2412788 I48.92 Sinus rhythm today on Eliquis 5 mg twice daily. Bleeding precaution s were discussed. His MFW8KU1-WH Sc 2 score is 2 and his has bled score is 2.To see cardiologi st this week and get echo in a few weeks.Cont inue atenolol, advised him to limit his caffeine intake and also to limit his alcohol consumptio n. Essential hypertension 84525487 I10 Blood pressure relatively stable for now we will keep on his current regimen. Tremor 43138331 R25.1 All other labs for tremor wnl will get LFT and Brain MRI.Faye salomon t of PD will refer to neuro to further evalOn beta willow possible essential tremor as stress brings it on, but tremors was noted on gait walk. Somewhat of a shuffling gait. [id number] Micheal Richards MD Main Office [address] [facility] [address] [place] [address] 01/27/2022 13:14:28 01/27/2022 14:02:34 Parkinson's disease 93759513 G20 Declined tx per neuro, was told neuro if tremor worsens to contact neuro for tx.Has follow up in 4mo, and MRI pending. Atrial flutter 2547494 I 48.92 Sinus rhythm today on Eliquis 5 mg twice daily. Bleeding precaution s were discussed. His BPZ0WV3-EB Sc 2 score is 2 and his has bled score is 2.Saw cardiologi st this week and had echo.No hx that would suggest SHANAE.Advise d to monitor HR.Continu e atenolol, advised him to limit his caffeine intake and also to limit his alcohol consumptio n. [id number] Micheal Richards MD Main Office [address] [facility] [address] [place] [address] 05/26/2022 09:16:15 05/26/2022 10:08:44 Adult health examination 635427139 Z00.00 Patient was counseled on healthy diet, exercise and nutrition due to Body mass index is 25.4 kg/m? ? ?. Last PSADate: 05/27/21Res ult: 0.9Plan: ordered due [...] . Advance directives discussed. MOLST/HCP given. Fatigue 21161464 R53.83 Hyperlipidemia 44741950 E78.5 Gout 36150696 M10.9 stable Nocturia 632440558 R35.1 Anxiety state 649238510 F41.1 Mindful exercise discussed. Wants to hold from medication at this time.If it gets worse he will let me know. Essential hypertension 63081694 I10 Blood pressure relatively stable for now we will keep on his current regimen. Parkinson's disease 4904 9000 G20 Following Neuro. Atrial flutter 3830737 I 48.92 Sinus rhythm today on Eliquis 5 mg twice daily. Bleeding precaution s were discussed. His TFS5AD5-BR Sc 2 score is 2 and his has bled score is 2.Establis hed with cards.No hx that would suggest SHANAE, will screen this time however will screen.Adv ised to monitor HR.Continu e atenolol, advised him to limit his caffeine intake and also to limit his alcohol consumptio n. Snoring 68332218 R06.83 STOP BANG 4 with afib.Will order sleep study. Screening for malignant neoplasm of colon 449798224 Z12.11 Unintentio nal weight loss 520614870 R63.4 > 5% weight loss in ~6mo, [...] will follow up in 3mo. Pituitary macroadenoma 866482903 D35.2 Seen optho.Endo labs done.neuro surgery at [facility] request to only see patient after he is seen by endo, referral for endo pending.He said he got a call but needs to call back to schedule, referral also given. [id number] Micheal Richards MD Main Office [address] [address] 08/31/2022 09:22:02 08/31/2022 10:13:57 Unintentional weight loss 572319943 R63.4 > 5% weight loss in ~6mo, he tells me he has made no change to diet, blood work wnl he is going to see GI for colo inial apt Sep 13 but that is only for first meet thus will get occult test.Manny chambers Daily weight diary, will follow up in 3mo.Will get US and additional testAlso referral placed [facility]. Snoring 88247387 R06.83 STOP BANG 4 with afib. He plans to reach out. Atrial flutter 3657635 I 48.92 Sinus rhythm today on Eliquis 5 mg twice daily. Bleeding precaution s were discussed. His IUN3IL4-NC Sc 2 score is 2 and his has bled score is 2.Establis hed with cards.No hx that would suggest SHANAE, will screen this time however will screen.Adv ised to monitor HR.Continu e atenolol, advised him to limit his caffeine intake and also to limit his alcohol consumptio n. [id number] Karl Cat MD Main Office [address] [facility] [address] [facility] [place] [address] 09/15/2022 12:01:06 09/15/2022 12:01:37 [id number] Micheal Richards MD Main Office [address] [facility] [address] [facility] [place] [address] 11/30/2022 10:16:07 11/30/2022 11:14:13 Unintentional weight loss 434443629 R63.4 Gained 8lb will continue to monitor for now hold imaging. Colonoscop y pending but has had a pre-colono scopy appointmen t and procedure has been scheduled. It is encouragin g that his FOBT was negative. Snoring 39521394 R06.83 STOP BANG 4 with afib. Encouraged to follow-up with sleep medicine. Atrial flutter 9967279 I 48.92 Sinus rhythm today on Eliquis 5 mg twice daily. Bleeding precaution s were discussed. His ZSL6HZ7-DT Sc 2 score is 2 and his has bled score is 2.Establis hed with cards.No hx that would suggest SHANAE, will screen given afib.Advis ed to monitor HR.Continu e atenolol, advised him to limit his caffeine intake and also to limit his alcohol consumptio n. Pituitary macroadenoma 648582254 D35.2 He plans to follow-up with neurosurge on in [place] per his endocrine recommenda tion. He has been evaluated by the ophthalmol ogist. Influenza vaccine needed 9930610691 106 Z23 Parkinson's disease 4904 9000 G20.A1 Follow-up with neurology, I did give him a physical therapy referral that specialize s in Parkinson' s disease locally. [id number] Micheal Richards MD Main Office [address] [facility] [address] [facility] [place] [address] 03/18/2023 09:52:36 03/19/2023 14:00:42 [id number] Micheal Richards MD Main Office [address] [facility] [address] [facility] [place], [place] [address] 07/08/2023 09:18:13 07/08/2023 10:16:02 Adult health examination 382355822 Z00.00 Patient was counseled on healthy diet, exercise and nutrition due to Body mass index is 25.2 kg/m? ? ?. Last PSADate: 06/03/22Res ult: 0.9Plan: ordered due [...] . Advance directives discussed. MOLST/HCP given. Fatigue 68998099 R53.83 TSH done by endo Hyperlipidemia 13084174 E78.5 Gout 93767078 M10.9 stable Nocturia 270928606 R35.1 Anxiety state 900490959 F41.1 Mindful exercise discussed. If it gets worse he will let me know. Essential hypertension 11160300 I10 Blood pressure relatively stable for now we will keep on his current regimen. Parkinson's disease 4904 9000 G20.A1 Following Neuro. Atrial flutter 1204331 I 48.92 Sinus rhythm today on Eliquis 5 mg twice daily. Bleeding precaution s were discussed. His EAC9ZX4-BO Sc 2 score is 2 and his has bled score is 2.Establis hed with cards.Advi sed to monitor HR.Plans for EP. Snoring 26531199 R06.83 STOP BANG 4 with afib.Will order sleep study. Unintentio nal weight loss 946926692 R63.4 Pituitary macroadenoma 873064502 D35.2 s/p resection, followed by endo. Administra tion of viral vaccine 31964920 Z29.11 Administra tion of pneumococcal vaccine 01250182 Z23 [id number] Micheal Richards MD Main Office [address] [facility] [address] [facility] [place] [address] 01/13/2024 09:21:22 01/13/2024 09:54:57 Essential hypertension 68265205 I10 Blood pressure relatively stable for now we will keep on his current regimen. Parkinson's disease 4904 9000 G20.A1 Following Neuro.Requ esting handicap jazmine, has some gait shuffle will see if they can assist him. Atrial flutter 7528319 I 48.92 s/p ablation, doing well.Is planning to consider sleep study down the line. Pituitary macroadenoma 613422492 D35.2 s/p resection, followed by endo. Health Concerns Section Related Observation LastModified by Organization Detai ls LastModified Time None Recorded Concern Status LastModified by Organization Details LastModified Time None Recorded Advance Directives Directive None Recorded Payers Encounter Date Sequence Insurance Name Policy Number Policy Ma Covered Member ID Ma Member ID Guarantor Name 09/15/2022 1 [place] [id number] Zenas F [place]mont [id number] Zenas F [place] 11/30/2022 1 [place] [id number] Zenas F [place] [id number] Zenas F [place] 03/18/2023 1 [place] [id number] Zenas F [place] [id number] Zenas F [place] 07/08/2023 1 [place] [id number] Zenas F [place] [id number] Zenas F [place] 01/13/2024 1 [place] (MEDICARE [place]PLACEMENT PPO) [id number] Zenas F Philmont [id number] Zenas F [place] Notes Date Note Type Note Provider Name [...] is also under the care of an gre instructor for a pituitary macroadenoma. He has seen an liquefied natural gas plant operator for an eye exam and reports no current visual deficits, he is awaiting an evaluation from a neurosurgeon concerning the size of the macroadenoma. His Afib is stable. Micheal Richards MD [address], [address], [facility] 12/07/2022 12:24:27 03/18/2023 text/html Hospitalization Contact RecordReported [...] incidental finding for pituitary tumor presented to [facility] as scheduled for surgery to [...] - and will attend. Micheal Richards MD [address] [address], [place], [address], [facility] 03/19/2023 14:00:41 07/08/2023 text/html Medicare Annual Wellness [...] screening guidelines as well. Micheal Richards MD [address] [address], [place], [address], [facility] 07/08/2023 10:09:59 01/13/2024 text/html Hypertension F/UReported bypatient.Associated Symptoms:no dizziness; no lightheadedness; no chest pain; no shortness of breath; no palpitations; no edema; no calf pain with exertion Lifestyle:regular exercise; exercises 2 times/week; exercises for 30-45 minutes/day;high salt intake Medications:taking medications as directed; no side effects from medication Micheal Richards MD [address] [address], [place], [address], [facility] 01/13/2024 09:51:16
--- OUTSIDE RECORDS SUMMARY | 2024-06-12 11:42 | XMS_ITS | Clinical Summary ---
Author Organization [facility] it Address [address] [place] [address] Care Team Providers Care Air Intercept Controller Supervisor Name Role Phone Micheal Okeefe MD Primary Care Provider [phone] Immunizations Name Administration Dates Next Due Pfizer [...] cardiology at that time. T Parkinson's disease ([facility] V24, [facility] V28) DX:Parkinson's disease (HCC);COMMENT:RESTING TREMOR RIGHT HAND Pituitary adenoma ([facility] V 24, [facility] V28) DX:Pituitary adenoma (HCC);COMMENT:BEING MONITORED BY [place]OCRINOLOGY [place] Family History Medical History Relation Name Comments [...] this topic Medical Devices Implanted Type Area Corporate Compliance Officer Device Identifier Shelf Expiration Date Model / Serial / Lot Knee Tib Insrt Cr-X3 [id number] Stry-Howm [id number] Implanted:Qty: 1 on 11/15/2022 by Jose L Wood MD Right: Knee [employer] [id number] 09/04/2023 5530-G-611 / / [id number] Knee Fem Bsplt W Pa Stry-How [id number] Implanted:Qty: 1 on 11/15/2022 by Jose L Wood MD Right: Knee [employer] [id number] 07/24/2027 5517-F-502 / / [id number] Knee Bsplt Triathlon Ti Sz 6 Stry-How [id number] Implanted:Qty: 1 on 11/15/2022 by Jose L Wood MD Right: Knee [employer] [id number] 08/07/2027 5536-B-600 / / [id number] Care Teams Air Intercept Controller Supervisor Relationship Specialty Start Date End Date Micheal Okeefe MD [address] [address] PCP - General 10/13/22
== END 2024-06-12 10:34 | disposition home or self-care (01) ==
LOC: HO.ENCR 10:14
PROVIDERS: PCP Family Medicine; Visit Provider Student in an Organized Health Care Education/Training Program
DX: D35.2 Benign neoplasm of pituitary gland (principal)
CPT/HCPCS: 99213

== ENCOUNTER → 2024-06-12 10:14 | Outpatient (BNVA) | payer BC, SELFPAY | PROVIDERS: PCP Family Medicine; Visit Provider Student in an Organized Health Care Education/Training Program ==

== ENCOUNTER 2024-12-25 10:08 | Outpatient (REF) | payer BC, SELFPAY ==
[2024-12-25 12:20] LABS: Folate 8.4 ng/mL (> or = 4.0); Vitamin B12 352 pg/mL (200-900)
== END 2024-12-25 10:09 | disposition home or self-care (01) ==
LOC: HO.LAB 10:08
PROVIDERS: PCP Family Medicine; Referring Provider Family Medicine; Visit Provider Registered Nurse
DX: G20.A1 Parkinson's disease without dyskinesia, without mention of fluctuations (principal); G31.84 Mild cognitive impairment of uncertain or unknown etiology; Z79.01 Long term (current) use of anticoagulants; Z79.899 Other long term (current) drug therapy
CPT/HCPCS: 36415; 82607; 82746; 84443

== ENCOUNTER 2024-12-25 10:08 | Outpatient (AMB) | payer BC, SELFPAY ==
--- NOTE | 2024-12-25 10:10 | A.OFFVIS_ITS ---
Intake Visit Reasons: 6m Allergies No Known Allergies Allergy (Verified 12/25/24 10:14) Medication List - Last Reconciled 12/25/24 by Qian Nam CNP allopurinol 300 mg PO DAILY apixaban (Eliquis) 5 mg PO BID atenolol 50 mg PO DAILY atorvastatin 40 mg PO DAILY carbidopa-levodopa 25-100 mg 1 tab PO QID lisinopril 40 mg PO DAILY HPI Comments Details: He was doing okay. Right hand tremor was stable. No tremor elsewhere. No functional impairment. No difficulty eating or drinking. No difficulty swallowing. Tremor does not interfere with work, working 20 hours/week at [employer]. Walks about 8,000-10,000 steps at work, and goes for about a mile walk on days off. No falls. No trouble turning in bed or getting up from chair. Sleep was okay. Mood was okay. He reported that his noted that he could be forgetful at times. He was setting the dinner table and put the silverware in the wrong place. Occasionally, he would walk into a room and forget why. He was driving locally without issue, has not gotten lost. No work performance issues. Had cardiac ablation for afib at end of 10/2023. Previously noticed change in handwriting ability and noticed voice had become softer. Had R TKR in 11/2022. Right hand tremor since summer 2021. No family hx of tremor. [facility] Medical History (Updated 12/25/24 @ 10:23 by Qian Nam CNP) Afib Gout Hyperlipidemia Hypertension Parkinson disease Pituitary adenoma (~03/2023) Surgical History H/O cardiac radiofrequency ablation History of pituitary surgery Hx of colonoscopy Hx of knee surgery Family History Mother Diabetes mellitus, type II Father Carcinoma of prostate Social History Alcohol intake: current Alcohol intake frequency: a few times a week Patient Tobacco Use Status: Never used Tobacco Review of Systems Const Denies chills, Denies daytime sleepiness, Denies difficulty sleeping, Denies fatigue, Denies fever(s), Denies frequent falls, Denies headache(s), Denies increased appetite, Denies poor appetite, Denies snoring, Denies weakness, Denies weight gain and Denies weight loss Eyes Denies loss of vision ENT Denies vertigo, Denies dizziness, Denies headache(s) and Denies neck pain Card Denies chest pain at rest, Denies chest pain with activity, Denies syncope, Denies leg edema, Denies palpitations, Denies dyspnea and Denies dyspnea on exertion Resp Denies cough, Denies dyspnea, Denies dyspnea on exertion and Denies snoring GI Denies abdominal pain, Denies constipation, Denies heartburn, Denies diarrhea and Denies nausea Denies urinary frequency, Denies urinary incontinence and Denies urinary urgency Musc Denies abnormal gait, Reports back pain, Denies myalgias, Reports arthralgias, Denies neck pain, Denies numbness and Denies tingling Neuro Denies abnormal gait, Denies vertigo, Denies dizziness, Denies syncope, Denies frequent falls, Denies headache(s), Denies lack of coordination, Denies loss of vision, Denies memory loss, Denies numbness, Denies Other visual disturbances, Denies restless legs, Denies seizure-like activity, Denies tingling, Denies paresthesias, Reports tremor(s) and Denies weakness Psych Reports anxiety, Denies depression, Denies auditory hallucinations, Denies memory loss and Denies visual hallucinations Endo Denies fatigue and Denies palpitations Physical Exam Const Other: General Appearance:? normal, in no acute distress. Heart:? S1, S2 normal, no murmurs. Lungs:? clear anteriorly and posteriorly. Musculoskeletal:? normal. Extremities:? no edema. Psych:? alert, as below. Neuro Other: Abnormal Neurological Findings:?Decreased facial expressions and reduced blinking frequency. Slightly decreased arm swing bilaterally. Intermittent resting tremor of both hands, R > L. Cogwheeling rigidity to BUE, R > L. MMSE 24/30. Mental Status: alert, as below. Cranial Nerves: Pupils are equal, round, and reactive to light. External ocular muscles are intact. Visual mora are full, no ptosis. Face is symmetrical, no facial weakness or droop. Facial sensations are normal. Tongue protrudes in midline. Palate elevates symmetrically. Shoulder shrugging is normal Motor Examination: Normal muscle tone, bulk and strength. No atrophy or fasciculations. No drift of the extended upper extremities. DTR 2+. Plantars are flexor. Sensory Exam: Normal light touch, temperature, pinprick, vibration, and joint- position sensations. Rhomberg sign is absent. Coordination: No ataxia. No titubation. Gait Exam: Within normal limits. Cerebellar Signs: [id number] is okay. Extrapyramidal System: As above. Speech: Normal. MMSE Level of Consciousness: Alert. Orientation: Knows correct year, month, date, day and season. Knows correct city, county and state. Knows correct location and floor. Registration: Able to register 3 objects. Attention: Serial 7's performed accurately to 93. Recall: Able to recall 1 out of 3 objects. Language: Normal spontaneous speech, fluency, repetition, naming, comprehension, reading, and writing. Total Score: 24/30. Assessment & Plan Assessment & Plan (1) Parkinson disease: Code(s): G20 - Parkinson's disease Category: Medical Qualifiers: Dyskinesia presence: unspecified whether dyskinesia Fluctuating manifestations: unspecified whether manifestations fluctuate Qualified Code(s): G20.A1 - Parkinson's disease without dyskinesia, without mention of fluctuations Plan: Continue carbidopa-levodopa 25-100mg 1 tablet four times a day. (2) MCI (mild cognitive impairment): Code(s): G31.84 - Mild cognitive impairment of uncertain or unknown etiology Category: Medical Plan: Reviewed labs ordered. Stay physically and socially active. Orders: Orders Vitamin B12 and Folate Today G31.84 - Mild cognitive impairment of uncertain or unknown etiology TSH reflex Free T4 Today G31.84 - Mild cognitive impairment of uncertain or unknown etiology Coding Level of Care Code Est Pt Level 4 (38720) Diagnoses Parkinson's disease, unspecified whether dyskinesia present, unspecified whether manifestations fluctuate G20.A1 Dyskinesia presence: unspecified whether dyskinesia Fluctuating manifestations: unspecified whether manifestations fluctuate MCI (mild cognitive impairment) G31.84
== END 2024-12-25 10:34 | disposition home or self-care (01) ==
LOC: HO.HSM 10:08
PROVIDERS: PCP Family Medicine; Referring Provider Family Medicine; Visit Provider Registered Nurse
DX: G20.A1 Parkinson's disease without dyskinesia, without mention of fluctuations (principal); G31.84 Mild cognitive impairment of uncertain or unknown etiology
CPT/HCPCS: 99214